=== PATIENT | female | born 1950 | race Caucasian/White ===

== ENCOUNTER → 2019-02-26 10:58 | Outpatient (CLI) | payer MEDICARE, SELFPAY ==
[2015-07-13 07:08] VITALS: BMI 52.7
--- NOTE | 2019-02-26 11:06 | RAD_ITS ---
STUDY: X-RAY CHEST REASON FOR EXAM: Female, 68 years old. Shortness of breath and dyspnea TECHNIQUE: PA and lateral views of the chest. COMPARISON: None. FINDINGS: There are areas of hyperinflation. Mild compression of right basilar parenchyma. There is no demonstrated pleural abnormality. Normal size heart. Normal mediastinum and dragan. Normal visualized pulmonary arteries. Normal visualized aortic arch and descending thoracic aorta. There are diffuse degenerative changes of the visualized thoracic spine. Normal visualized ribs, clavicles, and shoulders. There is no demonstrated abnormality of the visualized soft tissue structures of the upper abdomen. RAD/Chest PA and Lateral IMPRESSION: Component of hyperinflation is nonspecific. Early form of COPD possible. Nonspecific compression of right basilar parenchyma. No pulmonary edema, congestive heart failure or confluent pneumonia. Electronically Signed: Lily Waters MD at 6:40 EDT , Service support ,
== END ==
DX: R06.00 Dyspnea, unspecified (principal)
CPT/HCPCS: 71046

== ENCOUNTER → 2019-04-17 06:27 | Outpatient (CLI) | payer MEDICARE, SELFPAY ==
--- NOTE | 2019-04-17 09:42 | PFTCOMP_ITS ---
COMPLETE PULMONARY FUNCTION TEST INTERPRETATION Brief HPI: Patient is a 68 year old female, currently under the care of Karon Franco, who presents to [facility] for complete pulmonary function tests secondary to diagnosis of dyspnea. Respiratory therapist reports good effort and reproducible results. Interpretation: Forced expiration spirometry shows no large airways obstructive ventilatory defect with an FEV1 of 97% predicted. There is no significant bronchodilator response by strict ATS criteria. Spirograms are of good quality and plateau normally. The respiratory flow volume loop shows a normal pattern. Lung volumes by body plethysmography show a slightly reduced total lung capacity at 3.95 L, 82% predicted. All other lung volumes are within normal limits. Significant reduction in ERV and RV also noted, which is suggestive of restriction secondary to body habitus. Diffusion capacity by carbon monoxide is at the lower limit of normal at 73% predicted. The airway resistance is normal. No previous pulmonary function tests were available for review. Impression: Mild restrictive ventilatory defect with a symmetric reduction diffusing capacity. This may be secondary to body habitus, but early interstitial lung disease cannot be excluded.
== END ==
DX: R06.00 Dyspnea, unspecified (principal)
CPT/HCPCS: 94060; 94726; 94729

== ENCOUNTER → 2019-06-26 21:07 | Outpatient (CLI) | payer MEDICARE, SELFPAY | DX: G47.10 Hypersomnia, unspecified (principal); R93.89 Abnormal findings on diagnostic imaging of other specified body structures | CPT/HCPCS: 95810 ==

== ENCOUNTER → 2019-06-28 16:16 | Outpatient (CLI) | payer MEDICARE, SELFPAY ==
[2015-07-13 07:08] VITALS: BMI 52.7
--- NOTE | 2019-06-28 16:21 | CT_ITS ---
STUDY: LOW DOSE CT LUNG CANCER SCREENING REASON FOR EXAM: Female, 69 years old. RADIATION DOSAGE (If Supplied By Facility): CTDIvol = ( 3.40 ) mGy, DLP = ( 83.43 ) mGycm TECHNIQUE: No contrast was administered. Low dose technique was utilized (average mAS-38 and kVp 120). 1.25 mm axial source images with a slice interval of 1.25-mm were reconstructed in lung windows. 2.5 mm axial source images with a slice interval of 2.5-mm were reconstructed in lung windows. 5.0 mm axial source images with a slice interval of 5.0-mm were reconstructed in soft tissue windows. Nodule measured using lung windows on PACS and/or independent workstation with automated measurement of minimum and maximum diameter. Nodule measurement reported as average diameter rounded to the nearest whole number. Growth is defined as an increase ins size of greater than 1.5 mm. COMPARISON: None. Findings: Examination is severely degraded due to extremely suboptimal insufficient radiation dose technique resulting in severely elevated image noise. There is a bilobed 1.7 cm right lower lobe solid nodule. Airways are patent. Pleural surfaces are intact. Mediastinal contents cannot be evaluated. However, there is severe coronary artery disease. CT/Low Dose CT Lung Screening IMPRESSION: 1. Severely limited exam, recommend repeating. 2. 1.7 cm right lower lobe nodule, not sufficiently well evaluated, cannot characterize. Recommend performing diagnostic CT chest with contrast for further assessment. 3. Severe coronary artery disease, cardiology attention advised., IMPORTANT NOTES FOR USE: ACR Lung-RADS Version 1.0 Assessment Categories Release Date: February 17, 2014 Category: Coded 0-4 bases on nodule(s) with highest degree of suspicion. Negative screen is defined as categories 1 and 2; a positive screen is defined as categories 3 and 4. Category 3 and 4A nodules that are unchanged on interval CT should be coded as category 2, and individuals returned to screening in 12 months. Category 4X: Category 3 or 4 nodules with additional imaging findings that increase the suspicion of lung cancer, such as spiculation, GGN that doubles in size in 1 year, enlarged lymph notes, etc. Category Modifiers: S (significant finding unrelated to lung cancer) and C (prior history of treated lung cancer) may be added to the 0-4 Lung-RADS Electronically Signed: Susan Loyd, at 17:09 EDT Tel , Service support ,
== END ==
DX: R06.00 Dyspnea, unspecified (principal); Z87.891 Personal history of nicotine dependence
CPT/HCPCS: G0297

== ENCOUNTER → 2019-08-06 11:38 | Outpatient (CLI) | payer MEDICARE, SELFPAY | DX: G47.33 Obstructive sleep apnea (adult) (pediatric) (principal) | CPT/HCPCS: 95811 ==

== ENCOUNTER → 2019-08-21 08:25 | Outpatient (CLI) | payer MEDICARE, SELFPAY ==
[2019-08-16 10:55] VITALS: BMI 52.7
[2019-08-21 08:30] VITALS: PULSE 117; PULSE 124; PULSE 130; PULSE 138; PULSE 142; PULSE 144; O2SAT 94; O2SAT 96; O2SAT 97; O2SAT 98; O2SAT 99
--- NOTE | 2019-08-21 15:03 | PCM.PSN.6M ---
PSN 6 Minute Walk Test - 6 Minute Walk Test 6 Minute Walk Test: 6 Minute Walk Test PSN:6-Minute Walk Test Start: 08/21/19 08:49 Freq: Status: Active Protocol: [id number].[id number] Document 08/21/19 08:30 HG (Rec: 08/21/19 08:51 HG [id number]) 6 Minute Walk Test Date Performed 08/21/19 Time Performed 08:35 Height 5 ft 5 in Weight: 137.892 kg Weight in Pounds 304.[address]: Kvng Ramachandran Assistive device used: None Pre-test Oxygen Delivery Method Room Air Pulse Ox (%) 96 Pulse Rate (60-100 beats/min) 117 H Dyspnea Janelle Scale (0-10) 2 Exertion Janelle Scale (6-20) 11 1st minute Oxygen Delivery Method Room Air Pulse Ox (%) 98 Pulse Rate (60-100 beats/min) 130 H 2nd minute Oxygen Delivery Method Room Air Pulse Ox (%) 97 Pulse Rate (60-100 beats/min) 138 H 3rd minute Oxygen Delivery Method Room Air Pulse Ox (%) 94 Pulse Rate (60-100 beats/min) 142 H Number of Rests Taken 1 Reported Symptoms Increased Work of Breathing 4th minute Oxygen Delivery Method Room Air Pulse Ox (%) 99 Pulse Rate (60-100 beats/min) 142 H 5th minute Oxygen Delivery Method Room Air Pulse Ox (%) 98 Pulse Rate (60-100 beats/min) 144 H 6th minute Oxygen Delivery Method Room Air Pulse Ox (%) 97 Pulse Rate (60-100 beats/min) 144 H Post-test Oxygen Delivery Method Room Air Pulse Ox (%) 98 Pulse Rate (60-100 beats/min) 124 H Dyspnea Janelle Scale (0-10) 4 Exertion Janelle Scale (6-20) 14 Full Laps Walked 12 Partial Lap, Number of Tiles Walked 0 Total Distance Walked (ft) 708 - Interpretation Interpretation: The patient was able to ambulate 708 feet over the course of 6 minutes on room air with no assistive devices and one break. The patient did have persistent tachycardia over the course of testing with a peak heart rate of 144 bpm. No significant desaturation was noted. These findings are consistent with a cardiovascular limitation exercise tolerance. - Recommendations Recommendations: The patient requires no supplemental oxygen with exertion. Consider cardiovascular work-up.
== END ==
PROVIDERS: Referring Provider Internal Medicine Critical Care Medicine; Visit Provider Internal Medicine Critical Care Medicine
DX: J98.4 Other disorders of lung (principal); E66.01 Morbid (severe) obesity due to excess calories; Z68.42 Body mass index [BMI] 45.0-49.9, adult
CPT/HCPCS: 94618

== ENCOUNTER → 2019-08-29 13:06 | Outpatient (CLI) | payer MEDICARE, SELFPAY ==
[2019-08-16 10:55] VITALS: BMI 52.7
--- NOTE | 2019-08-29 13:07 | CT_ITS ---
STUDY: CT CHEST WITH CONTRAST REASON FOR EXAM: Female, 69 years old. Lung nodule. RADIATION DOSAGE (If Supplied By Facility): CTDIvol = ( 15.06 ) mGy, DLP = ( 588.96 ) mGycm TECHNIQUE: Transaxial imaging was performed following intravenous administration of IV Isovue 300 100. Multiplanar coronal and sagittal images were reformatted. Individualized dose optimization techniques were used for this CT. COMPARISON: 06/28/2019. FINDINGS: Redemonstrated is right lower lobe pulmonary nodule measuring 1.2 x 1.5 x 2.3 cm, stable in the interval and measured in axial and coronal plane at the same level. This is stable in the interval. There is no demonstrated pleural abnormality. Normal heart and pericardium. Normal mediastinum. Normal hilar regions. Normal enhanced pulmonary arteries. Normal aorta arch and descending thoracic aorta. There are multi-level degenerative changes of the thoracic spine. Upper abdomen: Upper abdominal structures are unremarkable. CT/Chest WITH Contrast IMPRESSION: Right lower lobe pulmonary nodule, stable since 06/28/2019 with no new nodules identified. Stability recommended for total period of 2 years since initial observation. No acute cardiopulmonary process seen. Electronically Signed: Mela Singleton MD at 5:11 EST , Service support ,
[2019-08-29 13:40] LABS: CREATININE FINGERSTICK 1.5 mg/dL (0.55-1.02)
== END ==
PROVIDERS: Referring Provider Internal Medicine Critical Care Medicine; Visit Provider Internal Medicine Critical Care Medicine
DX: R91.1 Solitary pulmonary nodule (principal); J98.4 Other disorders of lung
CPT/HCPCS: 71260; Q9967

== ENCOUNTER → 2020-04-09 08:07 | Outpatient (CLI) | payer MEDICARE, MEDICAID, SELFPAY ==
[2020-03-26 09:39] VITALS: BMI 52.0
--- NOTE | 2020-04-09 08:08 | CT_ITS ---
STUDY: CT CHEST WITHOUT CONTRAST REASON FOR EXAM: Female, 69 years old. RLL LUNG NODULE 6 MON F/U, NON SMOKER, DB, HTN, COPD RADIATION DOSAGE (If Supplied By Facility): CTDIvol = ( 20.73 ) mGy, DLP = ( 744.98 ) mGycm TECHNIQUE: Transaxial imaging was performed without the administration of intravenous contrast material. Multiplanar coronal and sagittal images were reformatted. Individualized dose optimization techniques were used for this CT. COMPARISON: Comparison is made with prior study dated August 29, 2019. FINDINGS: There is a 1.6 cm x 1.2 cm x 1.6 cm spiculated nodule in the right lower lobe. This is essentially unchanged from prior examinations. There is no demonstrated pleural abnormality. There are calcifications of the coronary arteries. Normal mediastinum. Stable calcified lymph node in the aortopulmonary window. Normal unenhanced pulmonary arteries. There is atherosclerotic calcification of the aortic arch with tortuosity and elongation of the aortic arch and descending thoracic aorta. There are multi-level degenerative changes of the thoracic spine. Small hiatal hernia. Prior cholecystectomy. CT/Chest without Contrast IMPRESSION: Stable nodule in the right lower lobe. Stable calcified nodes in the aortopulmonary window. Electronically Signed: Cristino Medina, at 8:46 EDT , Service support ,
== END ==
PROVIDERS: Referring Provider Internal Medicine Critical Care Medicine; Visit Provider Internal Medicine Critical Care Medicine
DX: R91.1 Solitary pulmonary nodule (principal)
CPT/HCPCS: 71250

== ENCOUNTER → 2020-05-06 12:36 | Outpatient (CLI) | payer MEDICARE, MEDICAID, SELFPAY ==
[2020-04-20 07:45] VITALS: BMI 52.2
--- NOTE | 2020-05-06 12:38 | ECHOCS_ITS ---
Version 2 Reason For Study: Dyspnea/SOB Procedure This was a 2D Doppler, Color Flow transthoracic echocardiogram. The study was technically difficult. Contrast injection was performed. Exam performed in department. Left Ventricle Normal LV size. The estimated ejection fraction is 65 %. No evidence for diastolic dysfunction. No regional wall motion abnormalities noted. Right Ventricle Normal RV size. Normal systolic function. Atria The left atrium is mildly enlarged. Normal right atrium. No doppler evidence for ASD. Mitral Valve There is moderate mitral annular calcification. There is no mitral valve stenosis. No mitral valve insufficiency. Tricuspid Valve There is no tricuspid stenosis. Unable to estimate RV systolic pressure due to insufficient tricuspid regurgitant envelope. Aortic Valve Aortic sclerosis, no stenosis. Trisinus/trileaflet aortic valve. There is no aortic stenosis. No aortic valve insufficiency. Pulmonic Valve There is no pulmonic valvular stenosis. No pulmonic valve insufficiency. Great Vessels Normal aortic root. Pericardium/Pleural No pericardial effusion. Medication 22 gauge I.V. with prn adaptor inserted into right arm. Diluted definity 3ml given slow IV push to enhance endocardial definition. MMode/2D Measurements & Calculations LVIDd: 4.2 cm IVSd: 1.7 cm LAV(MOD-bp): 68.4 ml LVIDs: 3.1 cm LVPWd: 1.2 cm FS: 26.8 % LAV(MOD-bp) Indexed: 28.6 ml/m2 LAV(MOD-sp2): 53.3 ml LAV(MOD-sp4): 78.1 ml LA A4 area: 24.7 cm2 RA A4 area: 15.4 cm2 Time Measurements MV dec time: 0.23 sec Doppler Measurements & Calculations MV E max compa: 89.0 cm/sec Lat Peak E' Compa: 8.3 cm/sec Med Peak E' Compa: 6.1 cm/sec MV A max compa: 130.4 cm/sec E/E' lat: 10.8 E/E' med: 14.7 MV E/A: 0.68 MV V2 max: 162.8 cm/sec MV P1/2t max compa: 109.8 cm/sec Ao V2 max: 204.2 cm/sec MV max P.6 mmHg MV P1/2t: 80.3 msec Ao max P.7 mmHg MV V2 mean: 86.6 cm/sec Ao V2 mean: 114.9 cm/sec MV mean P.6 mmHg MV dec slope: 400.2 cm/sec2 Ao mean P.5 mmHg MV V2 VTI: 29.5 cm MVA(P1/2t): 2.7 cm2 Ao V2 VTI: 33.1 cm LV V1 max: 133.1 cm/sec PA V2 max: 113.6 cm/sec LV V1 max P.1 mmHg LV V1 mean P.0 mmHg LV V1 mean: 77.0 cm/sec LV V1 VTI: 30.5 cm Interpretation Summary The estimated ejection fraction is 65 %. No evidence for diastolic dysfunction. The left atrium is mildly enlarged. Aortic sclerosis, no stenosis. Ordering Physician: Annika Saleh Referring Physician: Annika Saleh Performed By: Clyde Foster RCS
== END ==
PROVIDERS: Referring Provider Nurse Practitioner Acute Care; Visit Provider Nurse Practitioner Acute Care
DX: R06.02 Shortness of breath (principal); G47.33 Obstructive sleep apnea (adult) (pediatric)
CPT/HCPCS: 93306; Q9957; A4216; C8929

== ENCOUNTER → 2020-08-25 08:43 | Outpatient (CLI) | payer MEDICARE, MEDICAID, SELFPAY ==
[2020-05-20 07:53] VITALS: BMI 53.1
[2020-08-25 09:15] LABS: Absolute Lymphocyte Count 2.05 X10^3/uL (0.83-4.51); Absolute Neutrophil Count 5.7 X10^3/uL (2.0-7.7); Basophil# 0.06 X10^3/uL; Basophil% 0.7 % (0-1); Eosinophil# 0.11 X10^3/uL; Eosinophils% 1.3 % (0-5); Hematocrit 42.5 % (37-47); Hemoglobin 14.1 g/dL (12.0-15.0); Lymphocyte # 2.05 X10^3/ul (4.0); Lymphocyte % 23.9 % (19-41); Mean Corp Hgb Conc 33.2 g/dL (32-36); Mean Corpuscular Hgb 31.2 pg (27.0-32.0); Mean Platelet Vol. 10.5 fl (6.2-12.0); Monocyte# 0.58 X10^3/uL; Monocyte% 6.8 % (0-10); NRBC Flagged by Analyzer 0 % (0-5); Neutrophil # 5.73 X10^3/uL (2.7-7.7); Neutrophil % 66.8 % (47-70); Platelet Count 216 K/mm3 (150-450); RBC Distribution Width CV 12.9 % (11.6-14.6); RBC Distribution Width SD 44.4 fl (35.1-43.9); Red Blood Count 4.52 M/mm3 (4.2-5.4); White Blood Count 8.6 K/mm3 (4.4-11.0)
[2020-08-25 09:30] LABS: Hemoglobin A1c 6.9 % (3.8-5.6)
[2020-08-25 09:36] LABS: Vitamin D,25 Hydroxy 60.2 ng/mL
[2020-08-25 09:44] LABS: ALB/GLOB Ratio 1.2 RATIO (0.9-2.4); AST(SGOT) 20 U/L (15-37); Alanine Aminotransfer ALT/SGPT 30 U/L (13-56); Albumin, Serum 4.4 g/dL (3.2-5.0); Alkaline Phosphatase 82 U/L (45-117); Anion Gap 10 (5-15); BUN 23 mg/dL (7-18); BUN/Creat Ratio 16.3 RATIO (10-20); Calcium,Total 9.1 mg/dL (8.5-10.1); Chloride 108 mmol/L (98-107); Cholesterol 173 mg/dL (200); Creatinine, Serum 1.41 mg/dL (0.55-1.02); EST Glomerular Filtration Rate 39 mL/min (>60); Est Glom Filt Rate - Afr Amer 48 mL/min (>60); Globulin 3.6 g/dL (2.2-4.2); Glucose 140 mg/dL (74-106); High Density Lipoprotein 59 mg/dL; Potassium 4.2 mmol/L (3.5-5.1); Sodium Level 139 mmol/L (136-145); T4 Free Direct 1.28 ng/dL (0.76-1.46); Thyroid Stim Hormone (TSH) 2.77 uIU/mL (0.358-3.74); Triglycerides 216 mg/dL; Very Low Density Lipoprotein 43 mg/dL (5-40)
== END ==
DX: I12.9 Hypertensive chronic kidney disease with stage 1 through stage 4 chronic kidney disease, or unspecified chronic kidney disease (principal); E11.22 Type 2 diabetes mellitus with diabetic chronic kidney disease; N18.9 Chronic kidney disease, unspecified; E78.2 Mixed hyperlipidemia; E03.9 Hypothyroidism, unspecified; J44.9 Chronic obstructive pulmonary disease, unspecified; E55.9 Vitamin D deficiency, unspecified
CPT/HCPCS: 36415; 80053; 80061; 82306; 83036; 84439; 84443; 85025

== ENCOUNTER → 2020-12-18 12:36 | Outpatient (CLI) | payer MEDICARE, SELFPAY ==
[2020-12-18 14:31] LABS: Hemoglobin A1c 7.9 % (3.8-5.6)
== END ==
PROVIDERS: Referring Provider Nurse Practitioner Adult Health
DX: E11.9 Type 2 diabetes mellitus without complications (principal)
CPT/HCPCS: 36415; 83036

== ENCOUNTER → 2021-03-12 11:21 | Outpatient (CLI) | payer MEDICARE, SELFPAY ==
[2021-03-12 12:14] LABS: Anion Gap 8 (5-15); BUN 15 mg/dL (7-18); BUN/Creat Ratio 10.9 RATIO (10-20); Chloride 107 mmol/L (98-107); Creatinine, Serum 1.38 mg/dL (0.55-1.02); EST Glomerular Filtration Rate 40 mL/min (>60); Est Glom Filt Rate - Afr Amer 49 mL/min (>60); Glucose 128 mg/dL (74-106); Potassium 4.1 mmol/L (3.5-5.1); Sodium Level 139 mmol/L (136-145)
== END ==
PROVIDERS: PCP Nurse Practitioner Adult Health; Referring Provider Nurse Practitioner Adult Health; Visit Provider Nurse Practitioner Adult Health
DX: E11.9 Type 2 diabetes mellitus without complications (principal)
CPT/HCPCS: 36415; 80048

== ENCOUNTER → 2021-03-19 09:46 | Outpatient (CLI) | payer MEDICARE, MEDICAID, SELFPAY ==
[2021-03-19 10:41] LABS: ALB/GLOB Ratio 1.1 RATIO (0.9-2.4); AST(SGOT) 22 U/L (15-37); Alanine Aminotransfer ALT/SGPT 30 U/L (13-56); Albumin, Serum 4.3 g/dL (3.2-5.0); Alkaline Phosphatase 92 U/L (45-117); Anion Gap 8 (5-15); BUN 17 mg/dL (7-18); Calcium,Total 9.5 mg/dL (8.5-10.1); Chloride 107 mmol/L (98-107); Creatinine, Serum 1.42 mg/dL (0.55-1.02); EST Glomerular Filtration Rate 39 mL/min (>60); Est Glom Filt Rate - Afr Amer 47 mL/min (>60); Globulin 3.9 g/dL (2.2-4.2); Glucose 120 mg/dL (74-106); Potassium 4.2 mmol/L (3.5-5.1); Protein, Total 8.2 g/dL (6.4-8.2); Sodium Level 139 mmol/L (136-145)
== END ==
PROVIDERS: PCP Nurse Practitioner Adult Health; Referring Provider Nurse Practitioner Adult Health; Visit Provider Nurse Practitioner Adult Health
DX: E11.9 Type 2 diabetes mellitus without complications (principal)
CPT/HCPCS: 36415; 80053

== ENCOUNTER → 2021-05-03 12:28 | Outpatient (CLI) | payer MEDICARE, MEDICAID, SELFPAY ==
[2021-04-20 08:35] VITALS: BMI 54.6
--- NOTE | 2021-05-03 12:29 | CT_ITS ---
STUDY: LOW DOSE CT LUNG CANCER SCREENING REASON FOR EXAM: Female, 70 years old. and amp;gt;30 pack year history. Former smoker. COPD RADIATION DOSAGE (If Supplied By Facility): CTDIvol = ( 4.02 ) mGy, DLP = ( 139.94 ) mGycm TECHNIQUE: No contrast was administered. Low dose technique was utilized (average mAS-38 and kVp 120). 1.25 mm axial source images with a slice interval of 1.25-mm were reconstructed in lung windows. 2.5 mm axial source images with a slice interval of 2.5-mm were reconstructed in lung windows. 5.0 mm axial source images with a slice interval of 5.0-mm were reconstructed in soft tissue windows. Nodule measured using lung windows on PACS and/or independent workstation with automated measurement of minimum and maximum diameter. Nodule measurement reported as average diameter rounded to the nearest whole number. Growth is defined as an increase ins size of greater than 1.5 mm. COMPARISON: Comparison is made with prior examination dated 04/09/2020. NODULES: Since prior study, the spiculated nodule in the right lower lobe has increased in size. It presently measures 2.4 size by 1.5 cm. A thickened linear density is seen along its lateral aspect. This extends to the pleural surface. This has progressed as compared to prior study. Emphysema: Mild degree of emphysematous changes. Endobronchial lesion: None Aorta: Unremarkable Coronary arteries: Coronary artery calcification. Heart: Unremarkable Pulmonary artery: Unremarkable Mediastinal nodes: Calcified lymph nodes in the region of the aortopulmonary window. Other chest and abdominal findings: CT/Low Dose CT Lung Screening IMPRESSION: Lung-RADS category 4B - Chest CT with or without contrast, PET/CT and/or tissue sampling can be obtained depending on the probability of malignancy and comorbidities. IMPORTANT NOTES FOR USE: ACR Lung-RADS Version 1.1 Assessment Categories Release Date: 2018 Category: Coded 0-4 bases on nodule(s) with highest degree of suspicion. Negative screen is defined as categories 1 and 2; a positive screen is defined as categories 3 and 4. Category 3 and 4A nodules that are unchanged on interval CT should be coded as category 2, and individuals returned to screening in 12 months. Category 4X: Category 3 or 4 nodules with additional imaging findings that increase the suspicion of lung cancer, such as spiculation, GGN that doubles in size in 1 year, enlarged lymph notes, etc. Category Modifiers: S (significant finding unrelated to lung cancer) Electronically Signed: Cristino Medina MD at 15:10 EDT , Service support ,
== END ==
PROVIDERS: Referring Provider Nurse Practitioner Acute Care; Visit Provider Nurse Practitioner Acute Care
DX: F17.210 Nicotine dependence, cigarettes, uncomplicated (principal)
CPT/HCPCS: 71271

== ENCOUNTER → 2021-05-10 11:24 | Outpatient (CLI) | payer MEDICARE, MEDICAID, SELFPAY ==
[2021-04-20 08:35] VITALS: BMI 54.6
[2021-05-10 12:42] LABS: Absolute Lymphocyte Count 1.99 X10^3/uL (0.83-4.51); Basophil# 0.05 X10^3/uL; Basophil% 0.6 % (0-1); Eosinophil# 0.12 X10^3/uL; Eosinophils% 1.3 % (0-5); Hematocrit 41.8 % (37-47); Hemoglobin 14.2 g/dL (12.0-15.0); Lymphocyte # 1.99 X10^3/ul (0.83-4.51); Lymphocyte % 22.4 % (19-41); Mean Corpuscular Hgb 30.9 pg (27.0-32.0); Mean Corpuscular Volume 91.1 fL (81-99); Mean Platelet Vol. 10.5 fl (6.2-12.0); Monocyte# 0.72 X10^3/uL; Monocyte% 8.1 % (0-10); NRBC Flagged by Analyzer 0 % (0-5); Neutrophil # 5.99 X10^3/uL (2.7-7.7); Neutrophil % 67.4 % (47-70); Platelet Count 236 K/mm3 (150-450); RBC Distribution Width CV 13.4 % (11.6-14.6); RBC Distribution Width SD 44.5 fl (35.1-43.9); Red Blood Count 4.59 M/mm3 (4.2-5.4); White Blood Count 8.9 K/mm3 (4.4-11.0)
[2021-05-10 12:53] LABS: Prothrombin Time (Protime)PT. 12.4 SECONDS (11.7-14.9)
[2021-05-10 13:00] LABS: Microalbumin,Random Urine 82.6 mg/L (NO RANGE EST.); Microalbumin:Creatinine Ratio 55.4 mg/g CRE (<30 mg/g CRE)
[2021-05-10 13:27] LABS: ALB/GLOB Ratio 1.1 RATIO (0.9-2.4); AST(SGOT) 23 U/L (15-37); Alanine Aminotransfer ALT/SGPT 37 U/L (13-56); Albumin, Serum 4.1 g/dL (3.2-5.0); Alkaline Phosphatase 89 U/L (45-117); Anion Gap 11 (5-15); BUN 26 mg/dL (7-18); BUN/Creat Ratio 17.1 RATIO (10-20); Chloride 105 mmol/L (98-107); Cholesterol 182 mg/dL (200); Creatinine, Serum 1.52 mg/dL (0.55-1.02); EST Glomerular Filtration Rate 36 mL/min (>60); Est Glom Filt Rate - Afr Amer 44 mL/min (>60); Globulin 3.7 g/dL (2.2-4.2); Glucose 138 mg/dL (74-106); High Density Lipoprotein 47 mg/dL; Potassium 3.8 mmol/L (3.5-5.1); Protein, Total 7.8 g/dL (6.4-8.2); Sodium Level 138 mmol/L (136-145); Thyroid Stim Hormone (TSH) 2.57 uIU/mL (0.358-3.74); Triglycerides 207 mg/dL; Very Low Density Lipoprotein 41 mg/dL (5-40)
[2021-05-12 15:18] LABS: Vitamin D 1,25-Dihydroxy 58.1 pg/mL (19.9-79.3)
== END ==
PROVIDERS: Visit Provider Family Medicine
DX: E11.9 Type 2 diabetes mellitus without complications (principal)
CPT/HCPCS: 36415; 80053; 80061; 82043; 82570; 82652; 84443; 85025; 85610

== ENCOUNTER → 2021-06-19 10:46 | Outpatient (CLI) | payer MEDICARE, MEDICAID, SELFPAY ==
--- NOTE | 2021-06-19 10:49 | US_ITS ---
EXAM: US RETROPERITONEAL COMPLETE, RENAL CLINICAL INDICATION: DISORDER OF KIDNEY - patient states one kidney TECHNIQUE: Grayscale and color Doppler sonographic evaluation of the retroperitoneum was performed. This report was created using [employer] report generation technology. COMPARISON: CT 04/04/2014. FINDINGS: RIGHT KIDNEY: Right renal cortical scarring. No hydronephrosis. No shadowing calculus. No perinephric collection is demonstrated. LEFT KIDNEY: Echogenic nonshadowing structure in the inferior left kidney likely represents renal pelvis fat. No perinephric collection is demonstrated. BLADDER: Urinary bladder is not well-distended. US/Kidney and Bladder IMPRESSION: No acute findings in the retroperitoneum. Electronically Signed: Johnathon Sepulveda MD ([place]) at 15:11 EDT , Service support ,
== END ==
PROVIDERS: Referring Provider Nurse Practitioner Adult Health; Visit Provider Nurse Practitioner Adult Health
DX: N28.9 Disorder of kidney and ureter, unspecified (principal)
CPT/HCPCS: 76770

== ENCOUNTER → 2021-06-29 15:03 | Outpatient (CLI) | payer MEDICARE, MEDICAID, SELFPAY ==
--- NOTE | 2021-06-29 15:30 | PET_ITS ---
EXAMINATION: FDG PET-CT INDICATIONS: A 71-year-old female with history of pulmonary nodularity. COMPARISON EXAMINATION: CT of the chest report dated 05/03/21 INDEX LESION SIZE SUV INTERPRETATION Right infrahilar region 29.1-mm (frame 185) 2.9 Fulfills quantitative criteria for viable neoplasm, histopathologic analysis recommended TECHNIQUE: Following the intravenous administration of 11.38 mCi of F-18 deoxyglucose via the right forearm, multiplanar image acquisitions of the neck, chest, abdomen and pelvis to level of mid thigh, obtained at one hour post radiopharmaceutical administration contemporaneously interpreted with the current CT of the neck, chest, abdomen and pelvis, to level of mid thigh, dated 06/29/[address] of the chest report dated 05/03/21 reveals: BLOOD GLUCOSE LEVEL:?? 109 mg/dl?HEIGHT:?65 inches?WEIGHT: 313 lbs. FINDINGS: 1. Increased FDG concentration is observed in the right lower medial lung-infrahilar region generating a calculated maximal standard uptake value of 2.9. The maximal axial diameter of the corresponding soft tissue density on review of CT of the chest dated 06/29/21 is 29.1-mm (AP). 2. Normal physiologic distribution of the radiopharmaceutical is apparent in the hepatic (3.0) and splenic parenchyma, both renal units, bladder and visualized intestinal tract. The visualized portion of the cerebral cortical-subcortical structures demonstrate symmetric and preserved glucose metabolism. Diffuse radiopharmaceutical concentration is noted in all four quadrants of the abdomen and pelvis. Prominent radiopharmaceutical concentration is observed in the anterior aspect of the nares most consistent with activated leukocytes associated with an inflammatory process-rhinitis. Pertinent CT findings are as follows: CHEST: Bilateral axillary and scattered mediastinal soft tissue densities, as well as calcified left thoracic perihilar soft tissue demonstrate no evidence of quantitatively significant increased FDG uptake. There is atherosclerotic calcification defined in the thoracic aorta without evidence of dilatation-aneurysm formation. Coronary arterial calcification is observed. ABDOMEN AND PELVIS: There is atherosclerotic calcification defined in the abdominal aorta without evidence of dilatation-aneurysm formation. Pelvic arterial calcification is visualized. Calcifications are manifest within the right kidney. The gallbladder appears surgically absent. Bilateral inguinal soft tissue densities with fatty hilus are ametabolic. SKELETAL: Degenerative changes are noted in the cervical, thoracic and lumbar spine without evidence of increased radiopharmaceutical concentration. PET/PET/CT Tumor Base -Thigh Init IMPRESSION: 1. Increased FDG distribution defined in the right lower medial lung-infrahilar region fulfills quantitative criteria for viable neoplasm with single point technique. Histopathologic analysis is recommended. (Emmanuel et al, Annals of Internal Medicine, 138:724, 2003). 2. No other quantitatively significant hypermetabolic abnormalities are encountered. Electronic Signature Billy Stone D.O. Accurate Quantification of SUVs for this report are calculated using the exclusive [employer], ([place]. Patent No. [id number]). Standardization and correction of the FDG SUV metric exclusively available with [employer] intellectual property, allow for vendor non-specific objective quantitative sequential FDG PET-CT comparison and otherwise unobtainable optimization of the sensitivity and specificity of the examination. Electronically Signed: Billy Stone DO at 19:40 EDT Tel , Service support ,
== END ==
PROVIDERS: Referring Provider Nurse Practitioner Adult Health; Visit Provider Nurse Practitioner Adult Health
DX: R91.1 Solitary pulmonary nodule (principal)
CPT/HCPCS: 78815; A9552

== ENCOUNTER → 2021-08-10 10:01 | Outpatient (CLI) | payer MEDICARE, MEDICAID, SELFPAY ==
--- NOTE | 2021-08-10 10:01 | MRI_ITS ---
STUDY: MRI BRAIN WITH AND WITHOUT CONTRAST REASON FOR EXAM: Female, 71 years old. Eval for brain metastases TECHNIQUE: Standardized multiplanar fat and water weighted pulse sequences were obtained. IV 28ml Dotarem was administered for the contrast portion of the examination. COMPARISON: None. FINDINGS: Normal size of the ventricles and extra-axial spaces for the patient''s age. Normal white matter tracts of the supratentorial brain. There is confluent periventricular hyperintensity cloaking the lateral ventricles, consistent with periventricular leukoaraiosis. Subcortical and periventricular white matter FLAIR hyperintensities compatible with chronic microvascular ischemic disease. There is no evidence for recent intracranial ischemia or other cause of cytotoxic edema on diffusion weighted imaging (DWI). There is a small enhancing focus along the inner table of the posterior left parietal bone. No abnormal enhancement in the brain. Normal bilateral basal ganglia. Normal thalami. There is no extra-axial fluid accumulation. Normal flow voids within the major intracranial circulation suggesting patency by spin echo criteria. Normal venous enhancement. There is no enhancing intra-axial or extra-axial abnormality. Normal sella turcica, pituitary gland, infundibular stalk, optic chiasm and hypothalamus. Normal tectal plate and pineal gland. Normal midbrain, joni and medulla. Normal cerebellum. Normal basal cisterns. Normal bilateral temporal bones. Normal bilateral internal auditory canals. No demonstrated orbital abnormality, within the constraints of a routine brain study. Normal visualized paranasal sinuses. Normal calvarium and skull base. Normal visualized soft tissue structures. Normal visualized upper cervical spine. MRI/Brain W/WO Contrast IMPRESSION: Suspect tiny metastatic focus along the inner table of the left parietal bone. No finding of brain metastasis. Electronically Signed: Bobby Rock MD at 4:35 EDT Tel , Service support ,
== END ==
PROVIDERS: Referring Provider Student in an Organized Health Care Education/Training Program; Visit Provider Student in an Organized Health Care Education/Training Program
DX: Z12.89 Encounter for screening for malignant neoplasm of other sites (principal); C34.91 Malignant neoplasm of unspecified part of right bronchus or lung
CPT/HCPCS: 70553; 77014; 77290; 77332; 82565; A9575; Q9967; A4216

== ENCOUNTER → 2021-08-16 08:59 | Outpatient (CLI) | payer MEDICARE, MEDICAID, SELFPAY ==
--- NOTE | 2021-08-16 15:31 | PFTCOMP_ITS ---
COMPLETE PULMONARY FUNCTION TEST INTERPRETATION Brief HPI: Patient is a 71 year old female, currently under the care of Dr. Small, who presents to [facility] for complete pulmonary function tests secondary to diagnosis of lung cancer. Respiratory therapist reports good effort and reproducible results. Interpretation: Forced expiration spirometry shows no large airways obstructive ventilatory defect with an FEV1 of 85% predicted. There is no significant bronchodilator response by strict ATS criteria. Spirograms are of good quality and plateau normally. The respiratory flow volume loop shows a normal pattern. Lung volumes by body plethysmography show a decreased total lung capacity at 3.61 L, 71% predicted. All other lung volumes are reduced symmetrically. Diffusion capacity by carbon monoxide is decreased at 67% predicted. The airway resistance is normal. Compared to previous pulmonary function tests from 04/17/2019, there has been no significant change. Impression: Mild restrictive ventilatory defect with a symmetric reduction in diffusion capacity
== END ==
PROVIDERS: Referring Provider Student in an Organized Health Care Education/Training Program; Visit Provider Student in an Organized Health Care Education/Training Program
DX: C34.91 Malignant neoplasm of unspecified part of right bronchus or lung (principal)
CPT/HCPCS: 94060; 94726; 94729

== ENCOUNTER 2021-08-17 07:26 | Day surgery (SDC) | payer MEDICARE, MEDICAID, SELFPAY ==
[2021-08-17] VITALS (8 sets, daily range): BP systolic 122–151; BP diastolic 74–84; PULSE 101–116; RESP 16; TEMP 36.2–36.8; O2SAT 97–98; BMI 51.4
[2021-08-17] MEDS: Lactated Ringers 1,000 ML 100 ML IV (07:45)
--- NOTE | 2021-08-17 08:21 | PCM.HP.BLA ---
History and Physical Date of Admission: 08/17/21 Intake Vital Signs 08/13/21 08:40 Height 5 ft 5 in Weight: 308 lb BMI 51.2 BP 172/82 H Blood Pressure Location Rt radial Position Sitting Respiration 18 Pulse Oximetry (%) 94 Oxygen Delivery Method room air Intake Visit Reasons: Consult port placement Chief Complaint: Referred for NSCLC management. Allergies No Known Allergies Allergy (Verified 08/13/21 08:24) Medications gabapentin 300 mg PO QHS 03/04/14 [History Confirmed 08/13/21] allopurinol 300 mg PO QHS 07/10/15 [History Confirmed 08/13/21] hydrochlorothiazide 25 mg PO DAILY 07/10/15 [History Confirmed 08/13/21] omeprazole 20 mg PO DAILY 07/10/15 [History Confirmed 08/13/21] albuterol sulfate 90 mcg/actuation aerosol inhaler 2 puff INHALATION Q6H 08/16/19 [History Confirmed 08/13/21] cholecalciferol (vitamin D3) 1,250 mcg (50,000 unit) capsule PO #12 cap 08/16/19 [History Confirmed 08/13/21] losartan 100 mg tablet 100 mg PO DAILY 08/16/19 [History Confirmed 08/13/21] pravastatin 40 mg tablet PO #90 tab 08/16/19 [History Confirmed 08/13/21] levothyroxine 25 mcg capsule 25 mcg PO DAILY 10/22/19 [History Confirmed 08/13/21] dulaglutide 1.5 mg/0.5 mL subcutaneous pen injector 1.5 mg SUBCUT QWEEK 04/20/21 [History Confirmed 08/13/21] amlodipine 10 mg tablet 10 mg PO DAILY 08/05/21 [History Confirmed 08/13/21] glipizide 10 mg tablet 10 mg PO DAILY 08/05/21 [History Confirmed 08/13/21] linagliptin 5 mg tablet 5 mg PO DAILY 08/09/21 [History Confirmed 08/13/21] [facility] Medical History (Updated 08/13/21 @ 08:[address] Sedrick Montiel MD) Abdominal pain Cholelithiasis Diabetes mellitus, type II DJD (degenerative joint disease) Fatty food intolerance History of nephrolithiasis Hyperlipidemia Hypertension Lactic acidosis Morbid obesity with BMI of 45.0-49.9, adult Rheumatoid arthritis Sleep apnea Surgical History H/O tubal ligation History of cholecystectomy Family History Father Lung cancer Sister Breast cancer Other Heart disease Kidney disease Social History adopted: No household members: none number of children: 3 current occupational status: retired Smoking Status: Former smoker Tobacco: How many years used: 2 alcohol intake: current alcohol intake frequency: 0-2 drinks per day substance use type: does not use HPI HPI HPI: STAN MCKINNEY, is a 71 F who presents to the office today for chest port consultation. Patient has lung cancer and requires chemotherapy treatment ROS General General: No weight change, appetite, fatigue, colon cancer, breast cancer or weakness HEENT HEENT: No difficulty swallowing, eye injury, eye surgery, swollen glands or hoarseness Endo Endocrine: Yes diabetes mellitus; No thyroid disease, thyroid cancer, Hair loss, heat intolerance or cold intolerance Skin Skin: No rash or changing moles Breast Breast: No left breast lump, right breast lump, nipple discharge, breast pain, abnormal mammogram, abnormal US or breast enlargement Musc Musculoskeletal: Yes rheumatoid arthritis and gout; No back problems, arthritis or joint pain Cardio Cardiovascular: Yes high blood pressure; No murmur, pacemaker, heart disease, atrial fibrillation, heart attack, heart stent, palpitations, shortness of breat with exertion or chest pain Psych Psychiatric: Yes anxiety; No depression or hearing voices Resp Respiratory: Yes shortness of breath, Yes sleep apnea, Yes cough, No COPD, No asthma, No emphysema and No wheezing Gastro Gastrointestinal: No abdominal pain, No nausea or vomiting, No diarrhea, No constipation, No blood in stool, No acid reflux, No hemorrhoids, No ulcers, No gallbladder problem and No black,tarry stools Raoul Hematologic: No blood thinners, No blood disorders, No bleeding, No anemia and No blood clots Neuro Neurologic: No system reviewed and no additional complaints, except as documented, No as per HPI, No abnormal gait, No abnormal hearing, No abnormal movements, No abnormal speech, No behavioral changes, No burning sensations, No confusion, No convulsions, No disequilibrium, No dizziness, No localized weakness, No frequent falls, No headache(s), No lack of coordination, No loss of vision, No memory loss, No numbness, No other visual disturbances, No radicular pain, No restless legs, No sensory deficit, No syncope, No tingling, No tremor(s), No weakness and No other Exam Const General: cooperative Orientation: alert and oriented x3 HENMT Head: normal to inspection Neck Neck: normal visual inspection and full ROM Chest Chest palpation & inspection: normal inspection of the chest Resp Effort & Inspection: normal respiratory effort Auscultation: clear to auscultation bilaterally Cardio Rate: regular rate Rhythm: regular rhythm GI Inspection: non-distended Palpation: soft and nontender Skin General: no rashes or lesions noted Neuro General: patient alert and patient oriented x3 Extrem General: full ROM Psych Appearance: grossly normal Mental Status: mental status grossly normal Assessment and Plan Assessment and Plan (1) Non-small cell cancer of right lung: Status: Acute Comment: NSCLC adenocarcinoma stage IIIA (T1c N2 M0) adenocarcinoma of the right lower lobe with mediastinal adenopathy. Discussed disease status, treatment with chemotherapy and Radiation. Pt want to proceed. Discussed therapy with Taxol/Carboplatin weekly. (2) Encounter for adjustment and management of vascular access device: Status: Acute Plan - Dr. Sedrick Montiel MD: Patient requires chest port for access for chemotherapy. I discussed port placement with the patient in detail. I discussed the risks including not limited to bleeding, infection, pneumothorax or line infection or DVT. Patient understands the risks and is when to proceed with port placement. Sedrick Montiel MD Pager: [facility] [address] [place] [address], [address] [place] [address] Office: I have re-examined the patient. There are no clinical changes since date of exam.
[2021-08-17 08:35] LABS: Bedside Glucose 155 mg/dL (70-110)
[2021-08-17] MEDS: Cefazolin 2 GM in 0.9% Normal Saline 100 ML IV (08:44)
[2021-08-17] MEDS: Lidocaine 1% /Epi 1:100 (20ml) 20 ML Vial (09:12)
--- NOTE | 2021-08-17 09:29 | PCM.OPRPT ---
Problems Associated Problem List Diagnoses (1) Non-small cell cancer of right lung: (2) Encounter for adjustment and management of vascular access device: Report of Operation Date of Procedure: 08/17/21 Pre-Operative Diagnosis: Lung cancer need for vascular access Post-Operative Diagnosis: Same Surgery/Procedure Performed:: Ultrasound and fluoroscopy guided right chest port placement utilizing right IJ Description of Procedure: After obtaining informed consent patient was brought back to the operating room MAC anesthesia was induced and the right chest and neck were prepped in normal sterile fashion. Ultrasound was used to evaluate both IJs and the right IJ was selected. Next, using a needle, the right IJ was accessed and a guidewire was passed on into the superior vena cava under fluoroscopy guidance. A small incision was made over the puncture site and the dilator introducer was placed over the guidewire. Next this was capped and the pocket was made for the port. 1% lidocaine with epinephrine was injected in the proposed port site. An incision was made with scalpel. Electrocautery was used to make a pocket under the skin and subcutaneous tissue. Hemostasis was obtained. Next, the catheter was tunneled up to the neck incision site and placed through the introducer. The peel-away introducer was removed and the position of the catheter was confirmed on fluoroscopy. Next, the catheter was trimmed and attached to the port with the locking device. Interrupted 2-0 Vicryl sutures were used to anchor the port to the chest wall and then the port was placed inside the pocket. The pocket was then flushed with saline and the port irrigated with saline. There was good blood return and the port flushed easily. Next, heparin was injected into the port. The skin was closed with subcutaneous interrupted 3-0 Vicryl sutures. A single 3-0 Vicryl sutures placed under the skin at the neck incision site. Steri-Strips were placed as well as op sites. Patient tolerated procedure well, was taken to PACU in stable condition. Chest x-ray will be obtained. Grafts/Implants Used: 8 [place] Power[employer] Admit VTE Documentation VTE Mechan Device Prophylaxis: SCD's
--- NOTE | 2021-08-17 09:30 | EX.PCM.DISCH ---
Discharge Instructions Procedure Port-A-Cath Diet Discharge Diet: Light diet - advance as tolerated (Pain medication may cause nausea. You should typically eat light foods as you take your pain medication.) Activity Discharge Activity: Return to Normal Activity and May Not Shower (Do not shower while port accessed) Dressing / Incision Call your doctor if your incision/area has: Continuous Slow Oozing, Sudden Increased Bleeding, Increased Pain/ Swelling, Increased Redness and Foul Smelling Discharge Call your doctor if you observe: Fever of 101 or Higher Remove Dressing in: 2 days Cleanse incision/area with: Soap & Water Follow Up Care Please Follow Up With: Sedrick Montiel MD When: as needed [phone] Test Results: Test results from this visit will be discussed in further detail at your follow-up appointment, if applicable. Discharge Plan Admission Attending Provider: Sedrick Montiel [facility] Providers: Madyson Reeves Discharge Orders/Prescriptions Prescriptions: No Action cholecalciferol (vitamin D3) 50,000 unit capsule 50,000 unit PO CANO Qty: 12 RF: 0 losartan 100 mg tablet 100 mg PO DAILY RF: 0 pravastatin 40 mg tablet 40 mg PO QHS Qty: 90 RF: 0 albuterol sulfate [ProAir HFA] 90 mcg/actuation HFA aerosol inhaler 2 puff INHALATION Q6H PRN (Reason: SOB) RF: 0 levothyroxine 25 mcg capsule 25 mcg capsule 25 mcg PO DAILY RF: 0 Trulicity 1.5 mg/0.5 mL pen injector 1.5 mg subcut CANO RF: 0 glipizide 10 mg tablet 10 mg PO DAILY RF: 0 amlodipine 10 mg tablet 10 mg PO DAILY RF: 0 Tradjenta 5 mg tablet 5 mg PO DAILY RF: 0 lidocaine-prilocaine 2.5-2.5 % cream 1 applic topical ONCE PRN (Reason: port access) 30 Days Qty: 30 RF: 2 ondansetron 4 mg tablet,disintegrating 4 mg PO Q8H PRN (Reason: nausea and vomiting) Qty: 30 RF: 2 gabapentin 100 MG capsule 300 mg PO QHS RF: 0 omeprazole 20 MG capsule 20 mg PO DAILY RF: 0 allopurinol 300 MG tablet 300 mg PO QHS RF: 0 hydrochlorothiazide 25 MG tablet 25 mg PO DAILY RF: 0 [facility] [Primary Care Provider] - Disposition Disposition (needs filled in before D/C Order can be placed): Home, Self Care
--- NOTE | 2021-08-17 09:35 | RAD_ITS ---
STUDY: X-RAY CHEST REASON FOR EXAM: Female, 71 years old. line placement -- in pacu TECHNIQUE: Single AP portable view of the chest. COMPARISON: 02/26/2019 FINDINGS: Interval placement of a right internal jugular chest port with tip of the catheter overlying the junction of the right atrium and superior vena cava with no pneumothorax. The lungs are clear and expanded. There is no demonstrated pleural abnormality. Normal size heart. Normal mediastinum and dragan. Normal visualized pulmonary arteries. Normal visualized aortic arch and descending thoracic aorta. Normal visualized thoracic spine. Normal visualized ribs, clavicles, and shoulders. There is no demonstrated abnormality of the visualized soft tissue structures of the upper abdomen. RAD/CXR for Line Placement IMPRESSION: 1. Interval placement of right internal jugular chest port with tip of catheter overlying the junction of the right atrium and superior vena cava with no pneumothorax. 2. No active disease. Electronically Signed: Billy Slaughter MD at 10:01 EDT Tel , Service support ,
== END 2021-08-17 10:26 | disposition home or self-care (01) ==
LOC: SDC 07:27 → AC 07:28
PROVIDERS: Referring Provider Surgery; Visit Provider Surgery
PROC: (CPT 36561; principal; 2021-08-17 09:15)
DX: Z45.2 Encounter for adjustment and management of vascular access device (principal); C34.31 Malignant neoplasm of lower lobe, right bronchus or lung; I10 Essential (primary) hypertension; E11.9 Type 2 diabetes mellitus without complications; E07.9 Disorder of thyroid, unspecified; K21.9 Gastro-esophageal reflux disease without esophagitis; E78.00 Pure hypercholesterolemia, unspecified; G47.33 Obstructive sleep apnea (adult) (pediatric); E66.01 Morbid (severe) obesity due to excess calories; Z68.43 Body mass index [BMI] 50.0-59.9, adult; Z79.84 Long term (current) use of oral hypoglycemic drugs; Z79.899 Other long term (current) drug therapy; Z87.891 Personal history of nicotine dependence
CPT/HCPCS: 00532; 36561; 71045; 77001; 77293; 77300; 77301; 77338; 82962; J7120; C1788

== ENCOUNTER → 2021-09-03 | Outpatient (CLI) | payer MEDICARE, MEDICAID, SELFPAY | END | disposition home or self-care (01) | LOC: LABSPEC 12:48 | DX: N93.9 Abnormal uterine and vaginal bleeding, unspecified (principal) ==

== ENCOUNTER → 2021-09-06 | Outpatient (CLI) | payer MEDICARE, MEDICAID, SELFPAY | END | disposition home or self-care (01) | LOC: LABSPEC 10:03 | PROVIDERS: Referring Provider Physician Assistant Surgical; Visit Provider Physician Assistant Surgical | DX: Z20.822 Contact with and (suspected) exposure to COVID-19 (principal) | CPT/HCPCS: 87635; U0005; U0003 ==

== ENCOUNTER 2021-09-19 12:25 | Observation (INO) | payer MEDICARE, MEDICAID, SELFPAY ==
[2021-09-19] VITALS (8 sets, daily range): BP systolic 105–139; BP diastolic 63–81; PULSE 99–115; RESP 16–20; TEMP 36–37.1; O2SAT 93–98; BMI 50.5; BMI 48.4
--- NOTE | 2021-09-19 12:45 | EX.ED.DYSGE1 ---
HPI History of Present Illness Chief Complaint: Nausea/Vomiting/Diarrhea Onset/Context/Timing Onset: Days (4) Context: Gradual Onset Timing: Continuous Quality: Weak Location: All over Current Severity: Severe Maximum Severity: Severe Worsened by: Nothing Relieved by: Nothing Associated Symptoms Associated Symptoms: See below Narrative Narrative: Patient has non-small cell lung cancer and is on IV chemotherapy. Her last treatment was 5 days ago and for the past 4 days, she has felt extremely weak, has been having 6 bouts or less per day of watery occasionally bloody diarrhea, and worsening pain in her chest with swallowing that has been there for the past 2 months since she started radiation and chemotherapy. She denies any vomiting. She is coughing without any fevers. She has lost sensation of taste and smell. No known history of Covid. Edema in her legs is chronic unchanged. Her mouth is dry and she feels dehydrated. She has had no syncopal episodes. Her chest is sore in the parasternal area only when she has coughing spasms, which are triggered with deep inspiration. She states she is breathing through the mouth and not the nose but breathing okay. No known history of chronic heart or lung disease although she has restrictive lung disease in her EMR. [facility] Medical History Abdominal pain Ambulates with cane Anxiety Back pain Bladder disease Cancer Chills Cholelithiasis Cough CPAP (continuous positive airway pressure) dependence Dehydration Diabetes Diabetes mellitus, type II Dietary restriction DJD (degenerative joint disease) Easy bruising Encounter for education Fatty food intolerance Former smoker Gastric reflux Gout High cholesterol History of echocardiogram History of edema History of nephrolithiasis History of pain when walking Hyperlipidemia Hypertension Hypertension Hypomagnesemia Lactic acidosis Migraine headache Morbid obesity with BMI of 45.0-49.9, adult Rheumatoid arthritis Shortness of breath on exertion Sleep apnea Thyroid disease Wears glasses Home Medications gabapentin 300 mg PO QHS 03/04/14 [History Last Taken 04/03/14 22:00 100 mg] allopurinol 300 mg PO QHS 07/10/15 [History Last Taken Unknown] hydrochlorothiazide 25 mg PO DAILY 07/10/15 [History Last Taken Unknown] omeprazole 20 mg PO DAILY 07/10/15 [History Last Taken 08/17/21] albuterol sulfate 90 mcg/actuation aerosol inhaler 2 puff INHALATION Q6H PRN 08/16/19 [History Last Taken Unknown] cholecalciferol (vitamin D3) 1,250 mcg (50,000 unit) capsule 50,000 unit PO CANO #12 cap 08/16/19 [History Last Taken Unknown] losartan 100 mg tablet 100 mg PO DAILY 08/16/19 [History Last Taken 08/17/21] pravastatin 40 mg tablet 40 mg PO QHS #90 tab 08/16/19 [History Last Taken Unknown] levothyroxine 25 mcg capsule 25 mcg PO DAILY 10/22/19 [History Last Taken 08/17/21] dulaglutide 1.5 mg/0.5 mL subcutaneous pen injector 1.5 mg SUBCUT CANO 04/20/21 [History Last Taken Unknown] amlodipine 10 mg tablet 10 mg PO DAILY 08/05/21 [History Last Taken 08/17/21] glipizide 10 mg tablet 10 mg PO DAILY 08/05/21 [History Last Taken Unknown] linagliptin 5 mg tablet 5 mg PO DAILY 08/09/21 [History Last Taken Unknown] lidocaine-prilocaine 2.5 %-2.5 % topical cream 1 applic TOPICAL ONCE PRN 30 Days #30 g 08/16/21 [Rx Last Taken Unknown] ondansetron 4 mg disintegrating tablet 4 mg PO Q8H PRN #30 tab 08/16/21 [Rx Last Taken Unknown] insulin glargine 100 unit/mL (3 mL) subcutaneous pen 10 unit SUBCUT QPM 09/08/21 [History Last Taken Unknown] Allergy/AdvReac Type Severity Reaction Status Date / Time No Known Allergies Allergy Verified 09/19/21 12:31 Family History Father Lung cancer Sister Breast cancer Other Heart disease Kidney disease Surgical History H/O tubal ligation History of cholecystectomy Hx of colonoscopy Social History adopted: No household members: none number of children: 3 current occupational status: retired Smoking Status: Former smoker Tobacco: How many years used: 2 alcohol intake: current alcohol intake frequency: 0-2 drinks per day substance use type: does not use what type of physical activity do you participate in: none additional social history: ROS ROS ED Constitutional Constitutional ED: Reports fatigue and malaise; Denies chills or fever(s) Eyes Eyes: Denies change in vision or diplopia ENT ENT ED: Reports loss taste/smell; Denies rhinorrhea or sore throat Cardiovascular Cardiovascular: Reports as per HPI, chest pain and pedal edema; Denies palpitations Respiratory/Chest Respiratory/Chest: Reports as per HPI, cough and dyspnea Gastrointestinal Gastrointestinal: Reports diarrhea and hematochezia; Denies abdominal pain, nausea or vomiting Genitourinary Genitourinary ED: Denies dysuria or hematuria Musculoskeletal Musculoskeletal: Denies back pain or neck pain Integumentary Denies abscess or rash Neurologic Neurologic: Denies headache(s), paresthesias or weakness Psychiatric Psychiatric: Denies anxiety or suicidal thoughts EXAM Physical Exam Const Vital Signs: 09/19/21 12:26 Temperature 98.7 F Temperature Source Temporal Pulse Rate 115 H Respiratory Rate 18 Blood Pressure 139/81 H Blood Pressure Mean 100 Pulse Ox 96 Oxygen Delivery Method Room Air Positive well nourished, well developed and obese General Appearance ED: well developed and NAD Nutritional Appearance: obese HEENT Reports dry mucous membranes normocephalic and atraumatic Mouth ED: Yes dry mucous membranes and No tongue abnormal Mouth: dry mucous membranes, No tongue abnormal and No thrush Throat: posterior oropharynx normal Eyes PERRL and EOMs intact bilaterally Neck full ROM and supple Chest Wall Chest Narrative: Parasternal tenderness bilaterally without crepitance or abnormal skin inspection Resp normal respiratory effort, normal air movement, no retractions and no use of accessory muscles Resp Narrative: End expiratory wheezes bilaterally, otherwise unremarkable. Cardio regular rate, regular rhythm and no murmurs Rate: tachycardic GI non-tender and non-distended Auscultation: normoactive bowel sounds Palpation: soft Back/Spine no CVA tenderness General Back: other FROM Extremity normal to inspection General Extremety ED: Yes edema; Negative for pulses abnormal or tenderness General Extremity: edema bilateral lower extremity Details: moderate; Negative for pulses abnormal Neuro oriented x3, CN's II-XII intact bilaterally and no sensory deficits noted Sensorium / Orientation: awake and alert Motor Exam: strength 5/5 throughout Skin no rashes or lesions noted and no wounds MDM MDM MDM Narrative Medical decision making narrative: Patient was given gentle IV fluids, and observed. She feels very weak and dehydrated, her labs are consistent with some prerenal azotemia as she does not necessarily have JANESSA however. The rest of her work-up is unremarkable, she does not appear to be in CHF or have any pneumonia, but she does have leukopenia, this is worse than she had been recently but she does not qualify for neutropenia and she had no fevers. Her Covid test returned negative. I think she would benefit from continued IV fluids and inpatient observation, she is amenable to that plan. Lab Data Attestation: I reviewed the patient's lab results. Labs: Laboratory Results - last 24 hr 09/19/21 09/19/21 09/19/21 13:08 13:08 13:08 WBC 1.2 L* RBC 3.75 L Hgb 11.5 L Hct 33.6 L MCV 89.6 MCH 30.7 MCHC 34.2 RDW Std Deviation 42.8 RDW Coeff of Mahnaz 13.2 Plt Count 104 L MPV 8.5 Immature Gran % (Auto) 1.600 H Neut % (Auto) 70.8 H Lymph % (Auto) 14.6 L Taney % (Auto) 11.4 H Eos % (Auto) 0.0 Baso % (Auto) 1.6 H Absolute Neuts (auto) 0.9 L Absolute Lymphs (auto) 0.18 L Nucleated RBC % 0 Diff Path Review May foll Sodium 141 Potassium 4.1 Chloride 109 H Carbon Dioxide 25.0 Anion Gap 7 BUN 25 H Creatinine 1.35 H Estim Creat Clear Calc 34.89 Est GFR (MDRD) Af Amer 50 L Est GFR (MDRD) Non-Af 41 L BUN/Creatinine Ratio 18.5 Glucose 200 H Calcium 8.4 L Total Bilirubin 0.90 AST 16 ALT 24 Alkaline Phosphatase 68 Troponin I High Sens 6 B-Natriuretic Peptide 24.1 Total Protein 6.3 L Albumin 3.1 L Globulin 3.2 Albumin/Globulin Ratio 1.0 Radiography Diagnostic Testing: Clinical Impression(s) from Imaging Studies Chest X-Ray 09/19/21 13:25 IMPRESSION: No acute findings in the chest. at 1348 Reported and signed by: Osmani Lew MD Electronically Signed: Osmani Lew MD at 13:47 EST Tel , Service support , EKG Initial EKG: Attestation: I personally reviewed and interpreted this EKG as follows: Interpretation: No Acute Injury Pattern and Sinus Tachycardia Discharge Plan Triage Chief Complaint: Nausea/Vomiting/Diarrhea Other Complaint: Diarrhea ED Provider: Issa Grigsby Dx/Rx/DC Orders Clinical Impression: Dehydration, Non-small cell cancer of right lung, Acute diarrhea, Immunocompromised state, Odynophagia, Leukopenia due to antineoplastic chemotherapy Prescriptions: No Action cholecalciferol (vitamin D3) 50,000 unit capsule 50,000 unit PO CANO Qty: 12 RF: 0 losartan 100 mg tablet 100 mg PO DAILY RF: 0 pravastatin 40 mg tablet 40 mg PO QHS Qty: 90 RF: 0 albuterol sulfate [ProAir HFA] 90 mcg/actuation HFA aerosol inhaler 2 puff INHALATION Q6H PRN (Reason: SOB) RF: 0 levothyroxine 25 mcg capsule 25 mcg capsule 25 mcg PO DAILY RF: 0 Trulicity 1.5 mg/0.5 mL pen injector 1.5 mg subcut CANO RF: 0 glipizide 10 mg tablet 10 mg PO DAILY RF: 0 amlodipine 10 mg tablet 10 mg PO DAILY RF: 0 Tradjenta 5 mg tablet 5 mg PO DAILY RF: 0 lidocaine-prilocaine 2.5-2.5 % cream 1 applic topical ONCE PRN (Reason: port access) 30 Days Qty: 30 RF: 2 ondansetron 4 mg tablet,disintegrating 4 mg PO Q8H PRN (Reason: nausea and vomiting) Qty: 30 RF: 2 Basaglar KwikPen U-100 Insulin 100 unit/mL (3 mL) insulin pen 10 unit subcut QPM RF: 0 gabapentin 100 MG capsule 300 mg PO QHS RF: 0 omeprazole 20 MG capsule 20 mg PO DAILY RF: 0 allopurinol 300 MG tablet 300 mg PO QHS RF: 0 hydrochlorothiazide 25 MG tablet 25 mg PO DAILY RF: 0 Primary Care Provider: [facility] Petty Silva Referrals: [facility] Petty Silva [Primary Care Provider] - Disposition Disposition: Acute Care Hospital [facility]
--- NOTE | 2021-09-19 12:50 | EKG12_ITS ---
Test Reason : Blood Pressure : / mmHG Vent. Rate : 106 BPM Atrial Rate : 106 BPM P-R Int : 134 ms QRS Dur : 104 ms QT Int : 360 ms P-R-T Axes : 045 026 009 degrees QTc Int : 478 ms Sinus tachycardia Nonspecific T wave abnormality Abnormal ECG Confirmed by DECLAN HERNANDEZ, MICHELE ([id number]), video editor DASHAWN DIAZ ([id number]) on 09/21/2021 9:13:23 AM Referred By: MENDOZA Confirmed By:MICHELE MANRIQUEZ MD
[2021-09-19] MEDS: Morphine 2 MG/ML Syringe IV (13:15)
[2021-09-19] MEDS: 0.9% Normal Saline 1,000 ML 250 ML IV (13:16)
[2021-09-19] MEDS: Mag Hydrox/Al Hydrox/Simeth 30 ML UDC PO (13:16)
[2021-09-19 13:18] LABS: Absolute Lymphocyte Count 0.18 X10^3/uL (0.83-4.51); Absolute Neutrophil Count 0.9 X10^3/uL (2.0-7.7); Basophil# 0.02 X10^3/uL; Basophil% 1.6 % (0-1); Hematocrit 33.6 % (37-47); Hemoglobin 11.5 g/dL (12.0-15.0); Lymphocyte # 0.18 X10^3/ul (0.83-4.51); Lymphocyte % 14.6 % (19-41); Mean Corp Hgb Conc 34.2 g/dL (32-36); Mean Corpuscular Hgb 30.7 pg (27.0-32.0); Mean Corpuscular Volume 89.6 fL (81-99); Mean Platelet Vol. 8.5 fl (6.2-12.0); Monocyte# 0.14 X10^3/uL; Monocyte% 11.4 % (0-10); NRBC Flagged by Analyzer 0 % (0-5); Neutrophil # 0.87 X10^3/uL (2.7-7.7); Neutrophil % 70.8 % (47-70); POSITIVE COUNT YES; POSITIVE DIFFERENTIAL YES; Platelet Count 104 K/mm3 (150-450); RBC Distribution Width CV 13.2 % (11.6-14.6); RBC Distribution Width SD 42.8 fl (35.1-43.9); Red Blood Count 3.75 M/mm3 (4.2-5.4); White Blood Count 1.2 K/mm3 (4.4-11.0)
[2021-09-19 13:20] LABS: Differential Indicated SCAN CRITERIA MET
--- NOTE | 2021-09-19 13:25 | RAD_ITS ---
EXAM: XR CHEST, 1 VIEW : 1950 CLINICAL INDICATION: cough TECHNIQUE: Frontal view of the chest. This report was created using [employer] report generation technology. COMPARISON: 08/17/2021 FINDINGS: LUNGS AND PLEURAL SPACES: Unremarkable. No consolidation or edema. No pneumothorax. No effusion. HEART: Unremarkable. Cardiac silhouette not enlarged. MEDIASTINUM: Central airways and mediastinal contour are unremarkable. BONES/JOINTS: Unremarkable. SOFT TISSUES: Unremarkable. TUBES, LINES AND DEVICES: Right-sided Port-A-Cath is in stable position. RAD/Chest 1 View (Portable) IMPRESSION: No acute findings in the chest. at 1348 Reported and signed by: Osmani Lew MD Electronically Signed: Osmani Lew MD at 13:47 EST Tel , Service support ,
--- NOTE | 2021-09-19 13:41 | PCM.HP.STD ---
HPI - General General Date of Admission: 09/19/21 Date of Service: 09/19/21 Chief Complaint: Odynophagia, Diarrhea w/ recent chemotherapy 5 days prior. HPI Narrative The patient is a 71 y/o F w/ PMHx: CKD stage III unclear subtype, Morbid Obesity, GRETEL on CPAP, Anxiety and Depression, HTN, HLD, GERD, Diabetes mellitus type II, Rheumatoid arthritis, Hypothyroidism, Hx Migraines, Former Tobacco use, Chronic COPD, Non small cell lung cancer of chemotherapy and radiation following w/ Dr. Arguello with most recently chemotherapy the Monday prior (~5 days prior to current presentation) who presents to the [facility] ED on 09/19/21 with history of ongoing diarrhea at least 4 episodes daily with no abdominal cramping or pain associated since her chemotherapy which she has not had with her prior regimen with no recent antibiotic therapy in addition to significant severe reduction in oral intake per her report secondary to severe pain with any swallowing, describing it as if she had gotten food down the wrong way unfortunately causing her to avoid intake with increasing fatigue and malaise prompting eventual ED evaluation. Work-up in the ED included T 98.7, heart rate 115, BP 139/81, respiratory rate 18, 96% on room air, CBC with WC 1.2, hemoglobin 11.5, platelet 104 with ANC 0.9, ALN 0.18 with mildly increased immature granulocytes, negative Covid rapid testing, CMP with chloride 109, BUN/creat 25/1.35, glucose 200, unremarkable hepatic profile, BNP 24.1, high-sensitivity troponin 6, chest x-ray with no acute cardiopulmonary findings. In the ED patient administered normal saline, GI cocktail as well as morphine 2 mg IV x1. [facility] Medical History Abdominal pain Ambulates with cane Anxiety Back pain Bladder disease Cancer Chills Cholelithiasis Cough CPAP (continuous positive airway pressure) dependence Dehydration Diabetes Diabetes mellitus, type II Dietary restriction DJD (degenerative joint disease) Easy bruising Encounter for education Fatty food intolerance Former smoker Gastric reflux Gout High cholesterol History of echocardiogram History of edema History of nephrolithiasis History of pain when walking Hyperlipidemia Hypertension Hypertension Hypomagnesemia Lactic acidosis Migraine headache Morbid obesity with BMI of 45.0-49.9, adult Rheumatoid arthritis Shortness of breath on exertion Sleep apnea Thyroid disease Wears glasses Home Medications gabapentin 300 mg PO QHS 03/04/14 [History Last Taken 04/03/14 22:00 100 mg] allopurinol 300 mg PO QHS 07/10/15 [History Last Taken Unknown] hydrochlorothiazide 25 mg PO DAILY 07/10/15 [History Last Taken Unknown] omeprazole 20 mg PO DAILY 07/10/15 [History Last Taken 08/17/21] albuterol sulfate 90 mcg/actuation aerosol inhaler 2 puff INHALATION Q6H PRN 08/16/19 [History Last Taken Unknown] cholecalciferol (vitamin D3) 1,250 mcg (50,000 unit) capsule 50,000 unit PO CANO #12 cap 08/16/19 [History Last Taken Unknown] losartan 100 mg tablet 100 mg PO DAILY 08/16/19 [History Last Taken 08/17/21] pravastatin 40 mg tablet 40 mg PO QHS #90 tab 08/16/19 [History Last Taken Unknown] levothyroxine 25 mcg capsule 25 mcg PO DAILY 10/22/19 [History Last Taken 08/17/21] dulaglutide 1.5 mg/0.5 mL subcutaneous pen injector 1.5 mg SUBCUT CANO 04/20/21 [History Last Taken Unknown] amlodipine 10 mg tablet 10 mg PO DAILY 08/05/21 [History Last Taken 08/17/21] glipizide 10 mg tablet 10 mg PO DAILY 08/05/21 [History Last Taken Unknown] linagliptin 5 mg tablet 5 mg PO DAILY 08/09/21 [History Last Taken Unknown] lidocaine-prilocaine 2.5 %-2.5 % topical cream 1 applic TOPICAL ONCE PRN 30 Days #30 g 08/16/21 [Rx Last Taken Unknown] ondansetron 4 mg disintegrating tablet 4 mg PO Q8H PRN #30 tab 08/16/21 [Rx Last Taken Unknown] insulin glargine 100 unit/mL (3 mL) subcutaneous pen 10 unit SUBCUT QPM 09/08/21 [History Last Taken Unknown] Allergy/AdvReac Type Severity Reaction Status Date / Time No Known Allergies Allergy Verified 09/19/21 12:31 Family History (Updated 09/19/21 @ 14:[address] Dalia Baca MD) Father Lung cancer Sister Breast cancer Mother Hypertension Other Heart disease Kidney disease Surgical History H/O tubal ligation History of cholecystectomy Hx of colonoscopy Social History adopted: No household members: none number of children: 3 current occupational status: retired Smoking Status: Former smoker Tobacco: How many years used: 2 alcohol intake: current alcohol intake frequency: 0-2 drinks per day substance use type: does not use what type of physical activity do you participate in: none additional social history: ROS ROS Narrative Admission Review of Systems: CONSTITUTIONAL: No weight loss, fever, chills, + weakness or fatigue. HEENT: Eyes: No visual loss, blurred vision, double vision or yellow sclerae. Ears, Nose, Throat: No hearing loss, sneezing, congestion, runny nose or sore throat. SKIN: No rash or itching, lesions, wounds. CARDIOVASCULAR: No chest pain, chest pressure or chest discomfort, palpitations, edema, orthopnea, syncopal events. RESPIRATORY: No shortness of breath, cough or sputum, wheezing, hemoptysis. GASTROINTESTINAL: + anorexia, odynophagia, diarrhea, No nausea, vomiting, abdominal pain, melena, BRBPR. GENITOURINARY: No dysuria, frequency, urgency or retention. NEUROLOGICAL: No headache, dizziness, syncope, paralysis, ataxia, numbness or tingling in the extremities, focal weakness, change in bowel or bladder control, seizure. MUSCULOSKELETAL: + muscle, back pain, joint pain or stiffness. HEMATOLOGIC: + anemia, bleeding or bruising. LYMPHATICS: No enlarged nodes. No history of splenectomy. PSYCHIATRIC: + history of depression or anxiety. ENDOCRINOLOGIC: No reports of sweating, cold or heat intolerance. No polyuria or polydipsia. ALLERGIES: No history of asthma, hives, eczema or rhinitis. Vital Signs Vital Signs Vital Signs: 09/19/21 12:26 Temperature 98.7 F Temperature Source Temporal Pulse Rate 115 H Respiratory Rate 18 Blood Pressure 139/81 H Blood Pressure Mean 100 Pulse Ox 96 Oxygen Delivery Method Room Air Weight Weight: 303 lb 12.752 oz Body Mass Index (BMI) 50.5 Physical Exam Narrative Physical Examination: General: Awake, alert, oriented x 3 and cooperative, seated upright in the ED bed, fatigued, no acute distress. Skin: Normal color, normal turgor, no icterus, no cyanosis. HEENT: AT/NC, EOMI, PERRLA, moderately dry MM, no carotid bruits or JVD noted, no marked OP erythema or exudates. Lungs: Mildly diminished, greater bases, distant likely secondary to habitus, moderate effort, no rales, ronchi or wheezing. Heart: Regular rate and rhythm; no gallop, rub audible. Abdomen: Soft, morbidly obese, NTTP, difficult to discern distention given habitus, mildly hyperactive bowel sounds, no obvious HSM however difficult exam given morbidly obese habitus. Extremities: No cyanosis, no clubbing, mild bilateral ankle to distal abernathy not markedly pitting chronic edema. Neurological: Patient awake, alert, oriented as noted, cognitive function intact; pupils equally reactive to light and accommodation, cranial nerves II-XII grossly normal, moving all 4 extremities, no focal deficits, strength moderately global decrease. Psychiatric: Affect appears mildly fatigued otherwise normal, no acute evidence of depressive or anxiety feelings. Results Lab / Micro Data Result Diagrams: 09/19/21 13:08 09/19/21 13:08 Labs: Laboratory Results - last 24 hr 09/19/21 13:08: WBC 1.2 L*, RBC 3.75 L, Hgb 11.5 L, Hct 33.6 L, MCV 89.6, MCH 30.7, MCHC 34.2, RDW Std Deviation 42.8, RDW Coeff of Mahnaz 13.2, Plt Count 104 L, MPV 8.5, Immature Gran % (Auto) 1.600 H, Neut % (Auto) 70.8 H, Lymph % (Auto) 14.6 L, [place] % (Auto) 11.4 H, Eos % (Auto) 0.0, Baso % (Auto) 1.6 H, Absolute Neuts (auto) 0.9 L, Absolute Lymphs (auto) 0.18 L, Nucleated RBC % 0, Diff Path Review May foll Micro: Microbiology 09/19/21 12:55 Nasal Secretion SARS-CoV-2 Antigen (Rapid) - Final Assessment & Plan Assessment/Plan (1) Acute diarrhea: (2) Odynophagia: PLAN: The patient is a 71 y/o F w/ PMHx: CKD stage III unclear subtype, Morbid Obesity, GRETEL on CPAP, Anxiety and Depression, HTN, HLD, GERD, Diabetes mellitus type II, Rheumatoid arthritis, Hypothyroidism, Hx Migraines, Former Tobacco use, Chronic COPD, Non small cell lung cancer of chemotherapy and radiation following w/ Dr. Arguello with most recently chemotherapy the Monday prior (~5 days prior to current presentation) who presents to the [facility] ED on 09/19/21 with history of ongoing diarrhea at least 4 episodes daily with no abdominal cramping or pain associated since her chemotherapy which she has not had with her prior regimen with no recent antibiotic therapy in addition to significant severe reduction in oral intake per her report secondary to severe pain with any swallowing. #1. Intractable diarrhea, suspected secondary to recent chemotherapy: We will admit to medical surgical floor, will maintain on judicious hydration, we will continue hydration, will obtain C. difficile and stool enteric pathogen to be cautious however do think this is secondary to likely chemotherapy, will defer any immediate antibiotic therapy at this time, if these studies are negative will initiate loperamide regimen. If patient certainly has been only taking in minimal food specifically likely only clears this certainly could be contributing. #2. Acute on chronic pancytopenia with underlying Non-small cell lung cancer on chemotherapy/radiation: Admission CBC with WC 1.2, hemoglobin 11.5, platelet 104 with ANC 0.9, ALN 0.18 with mildly increased immature granulocytes, recent chemotherapy as noted 5 days prior to current presentation, will request involvement by oncology specifically Dr. Arguello given this patient has several ongoing issues including significant dysphagia, continue to monitor with repeat CBC in a.m. and if appropriate would initiate Granix therapy and if any concerns and significantly neutropenic onset could consider empiric antibiotic therapy additionally. Mag and phos requested. #3. 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 If needed may also consider addition of scheduled reglan too. Will avoid acidic foods and no caffeine. #4. Diabetes mellitus type II with neuropathy: Hold oral home regimen, hold dulaglutide, continue home insulin regimen however if n.p.o. status may consider decreasing to one half if blood sugars decreased, will maintain on pureed ADA however if fails will trial clears, will maintain n.p.o. after midnight however pending GI evaluation, accu checks w/ ISS. Continue gabapentin regimen. #5. Chronic COPD: Patient not on any regimen aside from albuterol, given ED evaluation with mild and expiratory wheezing will maintain on ATC duonebs, PRN albuterol, HOB, IS parameters. #6. Morbid Obesity: Weight loss and lifestyle changes encouraged, nutrition consulted primarily secondary to recent poor oral intake history. #7. Hypertension: Given presentation holding patient hydrochlorothiazide, continue amlodipine, losartan, as needed IV hydralazine in the interim. #8. Hyperlipidemia: We will continue patient home statin therapy. #9. Anxiety and depression: Patient with history however she is not currently on any regimen, given significant life events with cancer and ongoing therapy recommend follow-up with PCP and consideration for counseling if necessary. #10. Hypothyroidism: Continue home synthroid regimen. #11. Former tobacco usage: Encourage continued tobacco cessation. #12. GERD: We will maintain on IV PPI given presentation as noted. #13. GRETEL: We will continue CPAP nightly. #14. Chronic Kidney Disease Stage III, unclear subtype: Admission BUN/Cr 25/1.35, baseline renal function primarily 1.3-1.5, repeat BMP in AM. #15. DVT prophylaxis: SCDs, will hold on chemoprophylaxis until GI evaluation, if no endoscopy intention will add Lovenox cautiously given acute presentation #1 with low threshold to hold. #16. CODE status: Patient does not have healthcare power of civil attorney nor living will in place but she notes that she is interested in setting these items up therefore referred her to case management/social work for help during her admission. She does report that this would be her brother. Discussed CODE status at length including difference between FULL code, DNR-CCA and DNR-CC status. Following discussions about the differences in these status, requested DNR-CCA, no intubation status. Advanced Care Planning Face to Face Time: 16 minutes. Charges/Coding Visit Charges OBSV E&M: 19360 Initial observation care L3 Procedures Hospitalists Procedures: 47011 Advncd Care Plan 30 Min
[2021-09-19 13:51] LABS: BNP,B-Type NATRIURETIC PEPTIDE 24.1 pg/mL (0-100)
[2021-09-19 13:53] LABS: AST(SGOT) 16 U/L (15-37); Alanine Aminotransfer ALT/SGPT 24 U/L (13-56); Albumin, Serum 3.1 g/dL (3.2-5.0); Alkaline Phosphatase 68 U/L (45-117); Anion Gap 7 (5-15); BUN 25 mg/dL (7-18); BUN/Creat Ratio 18.5 RATIO (10-20); Calcium,Total 8.4 mg/dL (8.5-10.1); Chloride 109 mmol/L (98-107); Creatinine, Serum 1.35 mg/dL (0.55-1.02); EST Glomerular Filtration Rate 41 mL/min (>60); Est Glom Filt Rate - Afr Amer 50 mL/min (>60); Estimated Creatinine Clearance 34.89 ml/min; Globulin 3.2 g/dL (2.2-4.2); Glucose 200 mg/dL (74-106); Potassium 4.1 mmol/L (3.5-5.1); Protein, Total 6.3 g/dL (6.4-8.2); Sodium Level 141 mmol/L (136-145); Troponin-I HS 6 pg/mL (3.0-54.0)
[2021-09-19 14:28] LABS: Magnesium 1.3 mg/dL (1.6-2.6); Phosphorus 2.7 mg/dL (2.5-4.9)
--- NOTE | 2021-09-19 16:46 | PCS.PANDOC ---
PANDEMIC DOCUMENTATION INITIATED: Date: 06/07/2021 Time: 190
[2021-09-19] MEDS: 0.9% Normal Saline 1,000 ML 100 ML IV (17:08)
[2021-09-19] MEDS: 0.9% Saline Lock 10 ML Syringe IV (17:09)
[2021-09-19 17:21] LABS: Bedside Glucose 141 mg/dL (70-110)
[2021-09-19] MEDS: Ipratropium/Albuterol Sulfate 3 ML AMPUL.NEB INHALATION (20:15)
[2021-09-19] MEDS: Allopurinol 300 MG Tablet PO (21:09)
[2021-09-19] MEDS: Pravastatin 40 MG Tablet PO (21:09)
[2021-09-19] MEDS: Gabapentin 300 MG Capsule PO (21:09)
[2021-09-19 21:21] LABS: Bedside Glucose 170 mg/dL (70-110)
[2021-09-20 03:10] VITALS: BP 106/79; PULSE 102; RESP 18; TEMP 36.9; O2SAT 97
[2021-09-20] MEDS: 0.9% Normal Saline 1,000 ML 100 ML IV ×2 (03:51→10:34)
[2021-09-20] MEDS: Levothyroxine 25 MCG TABLET PO (06:15)
[2021-09-20 06:26] LABS: Bedside Glucose 134 mg/dL (70-110)
--- NOTE | 2021-09-20 06:26 | PCM.PN.HOSP ---
Subjective Subjective Mag being given. Did well with dinner, still need stool. Objective Data Objective Data Vital Signs: Vital Signs Temp Pulse Resp BP Pulse Ox 98.4 F 102 H 18 106/79 97 09/20/21 03:10 09/20/21 03:10 09/20/21 03:10 09/20/21 03:10 09/20/21 03:10 Oxygen Flow Rate (L/min) 2 Oxygen Delivery Method Nasal Cannula Weight: 296 lb 15.402 oz Body Mass Index (BMI) 48.4 Intake & Output: Intake and Output for Last 24 Hours 09/18/21 09/19/21 09/20/21 23:59 23:59 23:59 Intake Total 1564.17 / 1564.17 985 / 985 Balance 1564.17 / 1564.17 985 / 985 Lab / Micro Data Result Diagrams: 09/19/21 13:08 09/19/21 13:08 Labs: Laboratory Results - last 24 hr 09/19/21 13:08: WBC 1.2 L*, RBC 3.75 L, Hgb 11.5 L, Hct 33.6 L, MCV 89.6, MCH 30.7, MCHC 34.2, RDW Std Deviation 42.8, RDW Coeff of Mahnaz 13.2, Plt Count 104 L, MPV 8.5, Immature Gran % (Auto) 1.600 H, Neut % (Auto) 70.8 H, Lymph % (Auto) 14.6 L, [place] % (Auto) 11.4 H, Eos % (Auto) 0.0, Baso % (Auto) 1.6 H, Absolute Neuts (auto) 0.9 L, Absolute Lymphs (auto) 0.18 L, Nucleated RBC % 0, Diff Path Review February09/19/21 13:08: Sodium 141, Potassium 4.1, Chloride 109 H, Carbon Dioxide 25.0, Anion Gap 7, BUN 25 H, Creatinine 1.35 H, Estim Creat Clear Calc 34.89, Est GFR (MDRD) Af Amer 50 L, Est GFR (MDRD) Non-Af 41 L, BUN/Creatinine Ratio 18.5, Glucose 200 H, Calcium 8.4 L, Total Bilirubin 0.90, AST 16, ALT 24, Alkaline Phosphatase 68, Troponin I High Sens 6, Total Protein 6.3 L, Albumin 3.1 L, Globulin 3.2, Albumin/Globulin Ratio 1.0 09/19/21 13:08: B-Natriuretic Peptide 24.1 09/19/21 13:08: Phosphorus 2.7, Magnesium 1.3 L 09/19/21 17:13: POC Glucose 141 H 09/19/21 21:08: POC Glucose 170 H 09/20/21 06:14: POC Glucose 134 H Micro: Microbiology 09/19/21 12:55 Nasal Secretion SARS-CoV-2 Antigen (Rapid) - Final Radiography Diagnostic Testing: Radiology Impression Chest X-Ray 09/19/21 13:25 IMPRESSION: No acute findings in the chest. at 1348 Reported and signed by: Osmani Lew MD Electronically Signed: Osmani Lew MD at 13:47 EST Tel , Service support , Physical Exam Narrative Physical Examination: General: Awake, alert, oriented x 3 and cooperative, seated upright in the ED bed, fatigued, no acute distress. Skin: Normal color, normal turgor, no icterus, no cyanosis. HEENT: AT/NC, EOMI, PERRLA, moderately dry MM, no carotid bruits or JVD noted, no marked OP erythema or exudates. Lungs: Mildly diminished, greater bases, distant likely secondary to habitus, moderate effort, no rales, ronchi or wheezing. Heart: Regular rate and rhythm; no gallop, rub audible. Abdomen: Soft, morbidly obese, NTTP, difficult to discern distention given habitus, mildly hyperactive bowel sounds, no obvious HSM however difficult exam given morbidly obese habitus. Extremities: No cyanosis, no clubbing, mild bilateral ankle to distal abernathy not markedly pitting chronic edema. Neurological: Patient awake, alert, oriented as noted, cognitive function intact; pupils equally reactive to light and accommodation, cranial nerves II-XII grossly normal, moving all 4 extremities, no focal deficits, strength moderately global decrease. Psychiatric: Affect appears mildly fatigued otherwise normal, no acute evidence of depressive or anxiety feelings. Assessment & Plan Assessment/Plan (1) Acute diarrhea: (2) Odynophagia: PLAN: The patient is a 71 y/o F w/ PMHx: CKD stage III unclear subtype, Morbid Obesity, GRETEL on CPAP, Anxiety and Depression, HTN, HLD, GERD, Diabetes mellitus type II, Rheumatoid arthritis, Hypothyroidism, Hx Migraines, Former Tobacco use, Chronic COPD, Non small cell lung cancer of chemotherapy and radiation following w/ Dr. Arguello with most recently chemotherapy the Monday prior (~5 days prior to current presentation) who presents to the [facility] ED on 09/19/21 with history of ongoing diarrhea at least 4 episodes daily with no abdominal cramping or pain associated since her chemotherapy which she has not had with her prior regimen with no recent antibiotic therapy in addition to significant severe reduction in oral intake per her report secondary to severe pain with any swallowing. #1. Intractable diarrhea, suspected secondary to recent chemotherapy: We will admit to medical surgical floor, will maintain on judicious hydration, we will continue hydration, will obtain C. difficile and stool enteric pathogen to be cautious however do think this is secondary to likely chemotherapy, will defer any immediate antibiotic therapy at this time, if these studies are negative will initiate loperamide regimen. If patient certainly has been only taking in minimal food specifically likely only clears this certainly could be contributing. #2. Acute on chronic pancytopenia with underlying Non-small cell lung cancer on chemotherapy/radiation: Admission CBC with WC 1.2, hemoglobin 11.5, platelet 104 with ANC 0.9, ALN 0.18 with mildly increased immature granulocytes, recent chemotherapy as noted 5 days prior to current presentation, will request involvement by oncology specifically Dr. Arguello given this patient has several ongoing issues including significant dysphagia, continue to monitor with repeat CBC in a.m. and if appropriate would initiate Granix therapy and if any concerns and significantly neutropenic onset could consider empiric antibiotic therapy additionally. Mag and phos requested. #3. 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 If needed may also consider addition of scheduled reglan too. Will avoid acidic foods and no caffeine. #4. Diabetes mellitus type II with neuropathy: Hold oral home regimen, hold dulaglutide, continue home insulin regimen however if n.p.o. status may consider decreasing to one half if blood sugars decreased, will maintain on pureed ADA however if fails will trial clears, will maintain n.p.o. after midnight however pending GI evaluation, accu checks w/ ISS. Continue gabapentin regimen. #5. Chronic COPD: Patient not on any regimen aside from albuterol, given ED evaluation with mild and expiratory wheezing will maintain on ATC duonebs, PRN albuterol, HOB, IS parameters. #6. Morbid Obesity: Weight loss and lifestyle changes encouraged, nutrition consulted primarily secondary to recent poor oral intake history. #7. Hypertension: Given presentation holding patient hydrochlorothiazide, continue amlodipine, losartan, as needed IV hydralazine in the interim. #8. Hyperlipidemia: We will continue patient home statin therapy. #9. Anxiety and depression: Patient with history however she is not currently on any regimen, given significant life events with cancer and ongoing therapy recommend follow-up with PCP and consideration for counseling if necessary. #10. Hypothyroidism: Continue home synthroid regimen. #11. Former tobacco usage: Encourage continued tobacco cessation. #12. GERD: We will maintain on IV PPI given presentation as noted. #13. GRETEL: We will continue CPAP nightly. #14. Chronic Kidney Disease Stage III, unclear subtype: Admission BUN/Cr 25/1.35, baseline renal function primarily 1.3-1.5, repeat BMP in AM. #15. DVT prophylaxis: SCDs, will hold on chemoprophylaxis until GI evaluation, if no endoscopy intention will add Lovenox cautiously given acute presentation #1 with low threshold to hold. #16. CODE status: Patient does not have healthcare power of director surface transportation nor living will in place but she notes that she is interested in setting these items up therefore referred her to case management/social work for help during her admission. She does report that this would be her brother. Discussed CODE status at length including difference between FULL code, DNR-CCA and DNR-CC status. Following discussions about the differences in these status, requested DNR-CCA, no intubation status. Advanced Care Planning Face to Face Time: 16 minutes.
[2021-09-20] MEDS: Ipratropium/Albuterol Sulfate 3 ML AMPUL.NEB INHALATION (07:25)
[2021-09-20 07:26] LABS: Absolute Lymphocyte Count 0.13 X10^3/uL (0.83-4.51); Absolute Neutrophil Count 0.7 X10^3/uL (2.0-7.7); Basophil# 0.02 X10^3/uL; Basophil% 2.1 % (0-1); Eosinophil# 0.01 X10^3/uL; Eosinophils% 1.1 % (0-5); Hematocrit 31.1 % (37-47); Hemoglobin 10.5 g/dL (12.0-15.0); Lymphocyte # 0.13 X10^3/ul (0.83-4.51); Lymphocyte % 13.7 % (19-41); Mean Corp Hgb Conc 33.8 g/dL (32-36); Mean Corpuscular Hgb 31.1 pg (27.0-32.0); Mean Platelet Vol. 10.8 fl (6.2-12.0); Monocyte# 0.07 X10^3/uL; Monocyte% 7.4 % (0-10); NRBC Flagged by Analyzer 0 % (0-5); Neutrophil % 73.6 % (47-70); POSITIVE COUNT YES; POSITIVE DIFFERENTIAL YES; Platelet Count 81 K/mm3 (150-450); RBC Distribution Width CV 13.1 % (11.6-14.6); RBC Distribution Width SD 42.9 fl (35.1-43.9); Red Blood Count 3.38 M/mm3 (4.2-5.4)
--- NOTE | 2021-09-20 07:26 | CON.PCM.GI_ITS ---
HPI Consult Data Date of Consult: 09/20/21 HPI Narrative HPI Narrative: STAN MCKINNEY, is a 71 F who presented to the ED with fatigue, weakness and diarrhea. She has a past medical history of non-small cell stage III lung cancer. She is currently undergoing chemotherapy and radiation. She also carries a past medical history of GRETEL, type 2 diabetes, obesity, rheumatoid arthritis, hypothyroidism. She had a colonoscopy and it showed diverticular disease with a couple polyps. Currently she is experiencing worsening esophageal dysphagia. She gets exter nal beam radiation on a daily basis except for the weekends. Most of her esophageal dysphagia is with liquids and solids. She has no history of gastroesophageal reflux disease. She had one episode of diarrhea this morning. She says she is going back and forth between diarrhea and constipation. She says that she denies any blood in her stool. She denies any nausea or vomiting. Her initial biochemical evaluation shows pancytopenia with an absolute neutrophil count of 0.9. She has not had any imaging of her abdomen or pelvis. [facility], [facility] Medical History Abdominal pain Ambulates with cane Anxiety Back pain Bladder disease Cancer Chills Cholelithiasis Cough CPAP (continuous positive airway pressure) dependence Dehydration Diabetes Diabetes mellitus, type II Dietary restriction DJD (degenerative joint disease) Easy bruising Encounter for education Fatty food intolerance Former smoker Gastric reflux Gout High cholesterol History of echocardiogram History of edema History of nephrolithiasis History of pain when walking Hyperlipidemia Hypertension Hypertension Hypomagnesemia Lactic acidosis Migraine headache Morbid obesity with BMI of 45.0-49.9, adult Rheumatoid arthritis Shortness of breath on exertion Sleep apnea Thyroid disease Wears glasses Home Medications gabapentin 300 mg PO QHS 03/04/14 [History Last Taken 04/03/14 22:00 100 mg] allopurinol 300 mg PO QHS 07/10/15 [History Last Taken Unknown] hydrochlorothiazide 25 mg PO DAILY 07/10/15 [History Last Taken Unknown] omeprazole 20 mg PO DAILY 07/10/15 [History Last Taken 08/17/21] albuterol sulfate 90 mcg/actuation aerosol inhaler 2 puff INHALATION Q6H PRN 08/16/19 [History Last Taken Unknown] cholecalciferol (vitamin D3) 1,250 mcg (50,000 unit) capsule 50,000 unit PO CANO #12 cap 08/16/19 [History Last Taken Unknown] losartan 100 mg tablet 100 mg PO DAILY 08/16/19 [History Last Taken 08/17/21] pravastatin 40 mg tablet 40 mg PO QHS #90 tab 08/16/19 [History Last Taken Unknown] levothyroxine 25 mcg capsule 25 mcg PO DAILY 10/22/19 [History Last Taken 08/17/21] dulaglutide 1.5 mg/0.5 mL subcutaneous pen injector 1.5 mg SUBCUT CANO 04/20/21 [History Last Taken Unknown] amlodipine 10 mg tablet 10 mg PO DAILY 08/05/21 [History Last Taken 08/17/21] glipizide 10 mg tablet 10 mg PO DAILY 08/05/21 [History Last Taken Unknown] linagliptin 5 mg tablet 5 mg PO DAILY 08/09/21 [History Last Taken Unknown] lidocaine-prilocaine 2.5 %-2.5 % topical cream 1 applic TOPICAL ONCE PRN 30 Days #30 g 08/16/21 [Rx Last Taken Unknown] ondansetron 4 mg disintegrating tablet 4 mg PO Q8H PRN #30 tab 08/16/21 [Rx Last Taken Unknown] insulin glargine 100 unit/mL (3 mL) subcutaneous pen 10 unit SUBCUT QPM 09/08/21 [History Last Taken Unknown] Allergy/AdvReac Type Severity Reaction Status Date / Time No Known Allergies Allergy Verified 09/19/21 12:31 Family History (Updated 09/19/21 @ 14:[address] Dalia Baac MD) Father Lung cancer Sister Breast cancer Mother Hypertension Other Heart disease Kidney disease Surgical History H/O tubal ligation History of cholecystectomy Hx of colonoscopy Social History adopted: No household members: none number of children: 3 current occupational status: retired Smoking Status: Former smoker Tobacco: How many years used: 2 alcohol intake: current alcohol intake frequency: 0-2 drinks per day substance use type: does not use what type of physical activity do you participate in: none additional social history: ROS Review of Systems ROS Unobtainable: other Constitutional Constitutional: Denies fatigue, fever(s), poor appetite, weight gain or weight loss ENT HEENT: Denies mouth lesions Cardiovascular Cardiovascular: Denies abdominal bloating, abdominal edema or abdominal pain Respiratory/Chest Respiratory/Chest: Denies change in mental status, change in phlegm color, chest congestion or chest tightness Gastrointestinal Gastrointestinal: Reports diarrhea, dysphagia, early satiety and loose stools; Denies dyspepsia, excessive flatus, fecal incontinence, heartburn, hematemesis, hematochezia or hemorrhoids Genitourinary Genitourinary: Denies abdominal discomfort, burning urination or itching Musculoskeletal Musculoskeletal: Reports as per HPI; Denies muscle weakness or myalgias Integumentary Integumentary: Denies jaundice Neurologic Neurologic: Denies lack of coordination or weakness Psychiatric Psychiatric: Denies confusion, depression, memory loss, mood swings, paranoia or suicidal ideation Endocrine Endocrinology: Denies systems reviewed and no addt'l complaints, except as documented Hematologic/Lymphatic Hematologic/Lymphatic: Denies anemia, easy bleeding, easy bruising or lymphadenopathy Allergic/Immunologic Allergic/Immunologic: Denies systems reviewed and no addt'l complaints, except as documented Physical Exam Const alert General Appearance: cooperative Orientation / Consciousness: oriented to person HEENT hearing grossly normal bilaterally Head and Scalp: normal to inspection Face and Sinus: face symmetric Nose: external nose normal Mouth: oral and palatal mucosa normal Eyes conjunctivae normal General Eye: normal appearance of both eyes Neck full ROM General: normal visual inspection Lymph Lymphatic: no lymphadenopathy noted Chest inspection of chest normal and palpation of chest normal Chest: symmetrical chest wall rise Resp normal respiratory effort Effort and Inspection: able to speak in complete sentences Cardio regular rate GI non-distended Percussion: normal to percussion Rectal Exam: deferred Neuro Speech: speech normal Gait (Neuro): normal gait Lab / Micro Data Result Diagrams: 09/19/21 13:08 09/19/21 13:08 Labs: Laboratory Results - last 24 hr 09/19/21 13:08: WBC 1.2 L*, RBC 3.75 L, Hgb 11.5 L, Hct 33.6 L, MCV 89.6, MCH 30.7, MCHC 34.2, RDW Std Deviation 42.8, RDW Coeff of Mahnaz 13.2, Plt Count 104 L, MPV 8.5, Immature Gran % (Auto) 1.600 H, Neut % (Auto) 70.8 H, Lymph % (Auto) 14.6 L, [place] % (Auto) 11.4 H, Eos % (Auto) 0.0, Baso % (Auto) 1.6 H, Absolute Neuts (auto) 0.9 L, Absolute Lymphs (auto) 0.18 L, Nucleated RBC % 0, Diff Path Review February09/19/21 13:08: Sodium 141, Potassium 4.1, Chloride 109 H, Carbon Dioxide 25.0, Anion Gap 7, BUN 25 H, Creatinine 1.35 H, Estim Creat Clear Calc 34.89, Est GFR (MDRD) Af Amer 50 L, Est GFR (MDRD) Non-Af 41 L, BUN/Creatinine Ratio 18.5, Glucose 200 H, Calcium 8.4 L, Total Bilirubin 0.90, AST 16, ALT 24, Alkaline Phosphatase 68, Troponin I High Sens 6, Total Protein 6.3 L, Albumin 3.1 L, Globulin 3.2, Albumin/Globulin Ratio 1.0 09/19/21 13:08: B-Natriuretic Peptide 24.1 09/19/21 13:08: Phosphorus 2.7, Magnesium 1.3 L 09/19/21 17:13: POC Glucose 141 H 09/19/21 21:08: POC Glucose 170 H 09/20/21 06:14: POC Glucose 134 H Micro: Microbiology 09/19/21 12:55 Nasal Secretion SARS-CoV-2 Antigen (Rapid) - Final Radiology Impression Chest X-Ray 09/19/21 13:25 IMPRESSION: No acute findings in the chest. at 1348 Reported and signed by: Osmani Lew MD Electronically Signed: Osmani Lew MD at 13:47 EST Tel , Service support , Assessment & Plan Assessment/Plan (1) Acute diarrhea: PLAN: The differential diagnosis for acute diarrhea would include infectious colitis. In the setting of recent chemotherapy also on the differential diagnosis would be neutropenic enterocolitis or typhlitis. On occasion if there is an underlying history of diarrhea you can increase the risk of inflammatory bowel disease. I will check fecal leukocytes as that would help determine if the etiology is from her colon or her small bowel. An infectious colitis you would see positive fecal leukocytes or positive fecal lactoferrin. She should be on a high-dose probiotic while undergoing chemotherapy and having diarrhea. I would not give any fiber supplements until it is determined that she does not have any infectious etiology to her diarrhea. (2) Odynophagia: PLAN: Differential diagnosis for her trouble swallowing would be radiation-induced injury. This is acute or subacute phase where she would get a denuded mucosa and ulcerations. Later in the disease or chronic aphasia can see stricturing disease of the esophagus due to external beam radiation. Also the differential diagnosis in the setting of leukocytosis she can get Milla e sophagitis or erosive esophagitis. She would likely need an upper endoscopy tomorrow. For now please prophylactically place her on fluconazole 100 mg a day x14 days and Protonix 40 mg twice a day. Thank you very much for allowing me to perspective care of this patient. Charges/Coding Visit Charges Inpatient E&M: 39265 Init Hosp L3
[2021-09-20 07:40] LABS: Differential Indicated SCAN CRITERIA MET
[2021-09-20 07:51] LABS: ALB/GLOB Ratio 0.9 RATIO (0.9-2.4); AST(SGOT) 19 U/L (15-37); Alanine Aminotransfer ALT/SGPT 23 U/L (13-56); Albumin, Serum 2.8 g/dL (3.2-5.0); Alkaline Phosphatase 67 U/L (45-117); Anion Gap 6 (5-15); BUN 21 mg/dL (7-18); BUN/Creat Ratio 19.1 RATIO (10-20); Calcium,Total 8.2 mg/dL (8.5-10.1); Chloride 111 mmol/L (98-107); EST Glomerular Filtration Rate 52 mL/min (>60); Est Glom Filt Rate - Afr Amer 63 mL/min (>60); Estimated Creatinine Clearance 42.82 ml/min; Globulin 3.2 g/dL (2.2-4.2); Glucose 134 mg/dL (74-106); Potassium 4.2 mmol/L (3.5-5.1); Sodium Level 140 mmol/L (136-145)
[2021-09-20 08:02] VITALS: PULSE 102; RESP 22
[2021-09-20 08:34] LABS: Platelet Estimate MOD DEC (ADEQ)
[2021-09-20 08:36] VITALS: BP 119/81; PULSE 115; RESP 18; TEMP 36.8; O2SAT 97
[2021-09-20 08:41] VITALS: RESP 18
[2021-09-20] MEDS: TBO-FILGRASTIM 480 MCG/0.8 ML ML SC (10:26)
[2021-09-20] MEDS: Sodium Chloride 0.65% 1 SPRAY SPRAY.BTL 2 SPRAY NASAL (10:27)
[2021-09-20] MEDS: Losartan Potassium 100 MG Tablet PO (10:29)
[2021-09-20] MEDS: amLODIPine 10 MG Tablet PO (10:30)
--- NOTE | 2021-09-20 11:30 | CASEMGMT ---
BRYANNA CM in to complete GONZALES form with patient. RN CM explained GONZALES form, patient voiced understanding. Patient signed GONZALES form and filed in chart. Patient provided with copy of signed GONZALES form. Patient states she has no concerns or needs at discharge. CM will continue to follow this patient and plan for a safe discharge.
[2021-09-20 11:35] LABS: Bedside Glucose 245 mg/dL (70-110)
[2021-09-20] MEDS: Insulin Lispro 100 UNIT/ML INSULN.PEN SC (12:06)
[2021-09-20] MEDS: Fluconazole 100 MG Tablet 400 MG PO (12:07)
--- NOTE | 2021-09-20 12:07 | DS.PCM_ITS ---
Providers Date of Admission: 09/19/21 Primary Care Physician: [facility] Consultations 09/19/21 16:32 Consult: Gastroenterology Routine Consulting Provider: [facility] Reason for Consult: NSLC patient, poor intake, suspect radiation esophagitits EMERGENT Consult: No MD Notified: Yes Date Notified: 09/19/21 Time Notified: 14:11 Method of Notification: cortext Consult: Oncology/Hematology Routine Consulting Provider: Wayne Rashid Reason for Consult: Suspected radiation esophagitis, intractable diarrhea (likely from chemo) EMERGENT Consult: No MD Notified: Yes Date Notified: 09/19/21 Time Notified: 14:10 Method of Notification: Text Reason For Visit: DYSPHAGIA, INTRACTABLE DIARRHEA Diagnosis Discharge Diagnosis (1) Acute diarrhea: Status: Acute Code(s): R19.7 - Diarrhea, unspecified (2) Odynophagia: Status: Acute Code(s): R13.10 - Dysphagia, unspecified Medications at Discharge Home Medications gabapentin 300 mg PO QHS 03/04/14 allopurinol 300 mg PO QHS 07/10/15 hydrochlorothiazide 25 mg PO DAILY 07/10/15 albuterol sulfate 90 mcg/actuation aerosol inhaler 2 puff INHALATION Q6H PRN 08/16/19 cholecalciferol (vitamin D3) 1,250 mcg (50,000 unit) capsule 50,000 unit PO CANO #12 cap 08/16/19 losartan 100 mg tablet 100 mg PO DAILY 08/16/19 pravastatin 40 mg tablet 40 mg PO QHS #90 tab 08/16/19 levothyroxine 25 mcg capsule 25 mcg PO DAILY 10/22/19 dulaglutide 1.5 mg/0.5 mL subcutaneous pen injector 1.5 mg SUBCUT CANO 04/20/21 amlodipine 10 mg tablet 10 mg PO DAILY 08/05/21 glipizide 10 mg tablet 10 mg PO DAILY 08/05/21 linagliptin 5 mg tablet 5 mg PO DAILY 08/09/21 lidocaine-prilocaine 2.5 %-2.5 % topical cream 1 applic TOPICAL ONCE PRN 30 Days #30 g 08/16/21 ondansetron 4 mg disintegrating tablet 4 mg PO Q8H PRN #30 tab 08/16/21 insulin glargine 100 unit/mL (3 mL) subcutaneous pen 10 unit SUBCUT QPM 09/08/21 acidophilus-pectin, citrus 1 tab PO BID 30 Days #60 tab 09/20/21 fluconazole [Diflucan] 200 mg PO DAILY 14 Days #14 tab 09/20/21 lidocaine HCl [Lidocaine Viscous] 5 ml PO Q3H PRN 30 Days #100 ml 09/20/21 loperamide 2 mg PO Q2H PRN PRN #30 cap 09/20/21 pantoprazole [Protonix] 40 mg PO BID #60 tab 09/20/21 Hospital Course Operations None Procedures EKG Summary of Care Provided Minutes Spent on Discharge: 35 Hospital Course: DISCHARGE NOTE: Discharge Diagnoses: #1. Intractable diarrhea, suspected secondary to recent chemotherapy, improved #2. Acute on chronic pancytopenia with underlying Non-small cell lung cancer on chemotherapy/radiation #3. Severe odynophagia suspected likely secondary to radiation esophagitis #4. Diabetes mellitus type II with neuropathy #5. Chronic COPD #6. Morbid Obesity #7. Hypertension #8. Hyperlipidemia #9. Anxiety and depression #10. Hypothyroidism #11. Former tobacco usage #12. GERD #13. GRETEL #14. Chronic Kidney Disease Stage III, unclear subtype Discharge Summary: The patient is a 71 y/o F w/ PMHx: CKD stage III unclear subtype, Morbid Obesity, GRETEL on CPAP, Anxiety and Depression, HTN, HLD, GERD, Diabetes mellitus type II, Rheumatoid arthritis, Hypothyroidism, Hx Migraines, Former Tobacco use, Chronic COPD, Non small cell lung cancer of chemotherapy and radiation following w/ Dr. Arguello with most recently chemotherapy the Monday prior (~5 days prior to current presentation) who presented to the [facility] ED on 09/19/21 with history of ongoing diarrhea at least 4 episodes daily with no abdominal cramping or pain associated since her chemotherapy which she has not had with her prior regimen with no recent antibiotic therapy in addition to significant severe reduction in oral intake per her report secondary to severe pain with any swallowing. Patient was admitted to medical surgical floor, judiciously hydrated, electrolytes repleted, patient diarrhea has significantly subsided with addition of loperamide regimen given suspected secondary to chemotherapy presentation, acute on chronic cytopenia secondary to chemotherapy with underlying non-small cell lung cancer with Granix x1 administered with continued recommendation for follow-up with oncology. Patient primary admission for severe odynophagia with suspected underlying radiation esophagitis with initiation of initially pur?ed foods, Protonix high-dose twice daily, viscous lidocaine as needed as well as avoidance of any acidic foods or caffeine which significantly improved her discomfort and nearly resolved it. Speech therapy was consulted and patient did successfully transition to moistened and minced foods. Gastroenterology was involved and following discussions with radiation oncologist EGD was deferred which initially been arranged with plan for treatment of possible esophageal candidiasis empirically with continue diet alterations. Patient was loaded with 400 mg Diflucan and continued on a 200 daily regimen x14 days with plan to follow-up with gastroenterology. Patient discharged to her planned outpatient radiation treatment given significant improvement, toleration of oral intake with planned arranged follow-up and treatment as noted. Discharge Time: > 35 Minutes DAY OF DISCHARGE PROGRESS NOTE: Subjective: Patient without acute event overnight per self and nursing report. Patient noted significant improvement with regimen and diet alterations. She did tolerate initial pur?ed diet and was evaluated by speech and transitioned without issue to moistened and minced with continued thin liquids. Patient denies fever, chills, nausea, emesis, abdominal pain, chest pain or dyspnea. Patient agreeable to discharge to home with transition prior to home to planned radiation per radiation oncologist request. Patient will be discharged with follow-up with primary care physician, continue follow-up with oncology with requested early visit as well as follow-up with gastroenterology. Objective: T 98.2, heart rate 110, BP 113/86, respiratory rate 18, 90% on room air Physical Examination: General: Awake, alert, oriented x 3 and cooperative, seated upright in the medical surgical bed, improved appearance, less fatigue, notes feeling improved with no odynophagia. Skin: Normal color, normal turgor, no icterus, no cyanosis. HEENT: AT/NC, EOMI, PERRLA, improved MMM, no evidence of any thrush or any oral lesions. Lungs: Mildly diminished, greater bases, distant likely secondary to habitus, moderate effort, no rales, ronchi or wheezing. Heart: Regular rate and rhythm; no gallop, rub audible. Abdomen: Soft, morbidly obese, NTTP, difficult to discern distention given habitus, improved normalized bowel sounds. Extremities: No cyanosis, no clubbing, mild bilateral ankle to distal abernathy not markedly pitting chronic edema. Neurological: Patient awake, alert, oriented as noted, cognitive function intact; pupils equally reactive to light and accommodation, cranial nerves II- XII grossly normal, moving all 4 extremities, no focal deficits, strength improving, mildly to moderately global decrease. Psychiatric: Affect appears improved, less fatigued, comfortable, no acute evidence of depressive or anxiety feelings. Assessment and Plan: Please see hospital summary above. Weight / BMI Weight Weight: 296 lb 15.402 oz Body Mass Index (BMI) 48.4 ABG / Lab / Microbiology Data Result Diagrams: 09/20/21 05:37 09/20/21 05:37 Laboratory: Laboratory Results - last 24 hr 09/19/21 13:08: WBC 1.2 L*, RBC 3.75 L, Hgb 11.5 L, Hct 33.6 L, MCV 89.6, MCH 30.7, MCHC 34.2, RDW Std Deviation 42.8, RDW Coeff of Mahnaz 13.2, Plt Count 104 L, MPV 8.5, Immature Gran % (Auto) 1.600 H, Neut % (Auto) 70.8 H, Lymph % (Auto) 14.6 L, [place] % (Auto) 11.4 H, Eos % (Auto) 0.0, Baso % (Auto) 1.6 H, Absolute Neuts (auto) 0.9 L, Absolute Lymphs (auto) 0.18 L, Nucleated RBC % 0, Diff Path Review February09/19/21 13:08: Sodium 141, Potassium 4.1, Chloride 109 H, Carbon Dioxide 25.0, Anion Gap 7, BUN 25 H, Creatinine 1.35 H, Estim Creat Clear Calc 34.89, Est GFR (MDRD) Af Amer 50 L, Est GFR (MDRD) Non-Af 41 L, BUN/Creatinine Ratio 18.5, Glucose 200 H, Calcium 8.4 L, Total Bilirubin 0.90, AST 16, ALT 24, Alkaline Phosphatase 68, Troponin I High Sens 6, Total Protein 6.3 L, Albumin 3.1 L, Globulin 3.2, Albumin/Globulin Ratio 1.0 09/19/21 13:08: B-Natriuretic Peptide 24.1 09/19/21 13:08: Phosphorus 2.7, Magnesium 1.3 L 09/19/21 17:13: POC Glucose 141 H 09/19/21 21:08: POC Glucose 170 H 09/20/21 05:37: WBC 1.0 L*, RBC 3.38 L, Hgb 10.5 L, Hct 31.1 L, MCV 92.0, MCH 31.1, MCHC 33.8, RDW Std Deviation 42.9, RDW Coeff of Mahnaz 13.1, Plt Count 81 L, MPV 10.8, Immature Gran % (Auto) 2.100 H, Neut % (Auto) 73.6 H, Lymph % (Auto) 13.7 L, [place] % (Auto) 7.4, Eos % (Auto) 1.1, Baso % (Auto) 2.1 H, Absolute Neuts (auto) 0.7 L, Absolute Lymphs (auto) 0.13 L, Nucleated RBC % 0, Differential Comment COMMENT, Diff Path Review February, Platelet Estimate MOD 09/20/21 05:37: Sodium 140, Potassium 4.2, Chloride 111 H, Carbon Dioxide 23.0, Anion Gap 6, BUN 21 H, Creatinine 1.10 H, Estim Creat Clear Calc 42.82, Est GFR (MDRD) Af Amer 63, Est GFR (MDRD) Non-Af 52 L, BUN/Creatinine Ratio 19.1, Glucose 134 H, Calcium 8.2 L, Total Bilirubin 0.90, AST 19, ALT 23, Alkaline Phosphatase 67, Total Protein 6.0 L, Albumin 2.8 L, Globulin 3.2, Albumin/Gl obulin Ratio 0.9 09/20/21 06:14: POC Glucose 134 H 09/20/21 11:34: POC Glucose 245 H Microbiology: Microbiology 09/19/21 12:55 Nasal Secretion SARS-CoV-2 Antigen (Rapid) - Final Radiography Diagnostic Testing: Radiology Impression Chest X-Ray 09/19/21 13:25 IMPRESSION: No acute findings in the chest. at 1348 Reported and signed by: Osmani Lew MD Electronically Signed: Osmani Lew MD at 13:47 EST Tel , Service support , D/C Instructions Discharge Diet: 1800 Calorie Control Diet (Diet texture moistened-minced and thin liquids per Speech recommendation.) Call your doctor if you observe: Fever of 101 or Higher, Numbness or Tingling, Shortness of breath, Dizziness and Chest pain Suture Line Care: - (Recurrent difficulty maintaining appropriate oral intake.) Meaningful Use Info Meaningful Use Diagnoses (Choose all that apply): None applicable Discharge Plan Admission Admit Date/Time: 09/19/21 13:59 Primary Reason for Your Visit: Odynophagia, Diarrhea secondary to chemotherapy Attending Provider: Dalia Baca Primary Care Provider: [facility] Consulting Providers: Wayne Rashid Instructions Additional Instructions / Restrictions: DISCHARGE INSTRUCTIONS: Please continue altered diet per speech therapy recommendations with continued moist minced texture as well as thin liquids. Please also use the viscous lidoc velasquez prior to meals to improve oral intake. Continue the high dose twice daily protonix in addition. Continue outpatient with speech therapy to continue to improve your intake and advance textures as able. Follow-up with Dr. Tirado, Gastroenterology and in the interim continue fluconazole for possible esophageal candidiasis to be cautious per Dr. Small recommendation. Please follow-up early with Dr. Arguello and have early repeat CBC. Given your diarrhea is associated with your chemotherapy, please take the loperamide as needed for diarrheal episodes. Discharge Orders/Prescriptions Prescriptions: New loperamide 2 mg Capsule 2 mg PO Q2H PRN PRN (Reason: chemotherapy associated diarrhea) Qty: 30 RF: 0 lidocaine HCl [Lidocaine Viscous] 2 % Solution 5 ml PO Q3H PRN (Reason: dysphagia) 30 Days Qty: 100 RF: 0 acidophilus-pectin, citrus 25 million cell -100 mg Tablet 1 tab PO BID 30 Days Qty: 60 RF: 0 fluconazole [Diflucan] 200 mg tablet 200 mg PO DAILY 14 Days Qty: 14 RF: 0 pantoprazole [Protonix] 40 mg tablet,delayed release (DR/EC) 40 mg PO BID Qty: 60 RF: 0 Continued cholecalciferol (vitamin D3) 50,000 unit capsule 50,000 unit PO CANO Qty: 12 RF: 0 losartan 100 mg tablet 100 mg PO DAILY RF: 0 pravastatin 40 mg tablet 40 mg PO QHS Qty: 90 RF: 0 albuterol sulfate [ProAir HFA] 90 mcg/actuation HFA aerosol inhaler 2 puff INHALATION Q6H PRN (Reason: SOB) RF: 0 levothyroxine 25 mcg capsule 25 mcg capsule 25 mcg PO DAILY RF: 0 Trulicity 1.5 mg/0.5 mL pen injector 1.5 mg subcut CANO RF: 0 glipizide 10 mg tablet 10 mg PO DAILY RF: 0 amlodipine 10 mg tablet 10 mg PO DAILY RF: 0 Tradjenta 5 mg tablet 5 mg PO DAILY RF: 0 lidocaine-prilocaine 2.5-2.5 % cream 1 applic topical ONCE PRN (Reason: port access) 30 Days Qty: 30 RF: 2 ondansetron 4 mg tablet,disintegrating 4 mg PO Q8H PRN (Reason: nausea and vomiting) Qty: 30 RF: 2 Basaglar KwikPen U-100 Insulin 100 unit/mL (3 mL) insulin pen 10 unit subcut QPM RF: 0 gabapentin 100 MG capsule 300 mg PO QHS RF: 0 allopurinol 300 MG tablet 300 mg PO QHS RF: 0 hydrochlorothiazide 25 MG tablet 25 mg PO DAILY RF: 0 Discontinued omeprazole 20 MG capsule 20 mg PO DAILY RF: 0 Referrals / Follow Up: Wayne Rashid MD [STAFF PHYSICIAN] - (Follow-up within 3-5 days to review admission. May see [employer].) Marcin Tirado DO [STAFF PHYSICIAN] - (Follow-up in 1-2 weeks.) Jose Small DO [NON-STAFF] - (Follow[facility]up as previously arranged.) [facility] - (Follow-up in 1 week to review admission.) Disposition Disposition (needs filled in before D/C Order can be placed): Home, Self Care Charges/Coding Visit Charges Inpatient E&M: 56370 Disch Hosp
[2021-09-20 12:39] VITALS: BP 113/86; PULSE 110; RESP 18; TEMP 36.8; O2SAT 98
--- NOTE | 2021-09-20 12:42 | CASEMGMT ---
Addendum entered by Zoraida Pittman 09/21/21 09:12: Late entry for 09/20/21 at 1325- Received message from radiology that pt is in waiting room. BRYANNA CASTRO walked to outpt [facility] to give outpt ST script. Pt had left, given to nurse Idalia who states she will give to pt tomorrow at radiation appt. Original Note: TC form requesting outpt ST scipt. Tubed and returned signed. BRYANNA CASTRO in to pt room, pt has left. TC to radiation, left message requesting call back to get the script to pt prior to leaving the hospital.
[2021-09-20 15:31] LABS: Pathologist Review Reviewed
[2021-09-20 21:56] LABS: Pathologist Review May foll
== END 2021-09-20 12:30 | disposition home or self-care (01) ==
LOC: ED 14:05 → MS3 14:21
PROVIDERS: Admitting Provider Family Medicine; Emergency Provider Emergency Medicine; Visit Provider Family Medicine
DX: K52.1 Toxic gastroenteritis and colitis (principal); T45.1X5A Adverse effect of antineoplastic and immunosuppressive drugs, initial encounter; E86.0 Dehydration; R11.2 Nausea with vomiting, unspecified; C34.91 Malignant neoplasm of unspecified part of right bronchus or lung; E11.40 Type 2 diabetes mellitus with diabetic neuropathy, unspecified; E11.22 Type 2 diabetes mellitus with diabetic chronic kidney disease; K21.9 Gastro-esophageal reflux disease without esophagitis; M10.9 Gout, unspecified; E78.5 Hyperlipidemia, unspecified; E03.9 Hypothyroidism, unspecified; N18.30 Chronic kidney disease, stage 3 unspecified; G47.33 Obstructive sleep apnea (adult) (pediatric); J44.9 Chronic obstructive pulmonary disease, unspecified; I12.9 Hypertensive chronic kidney disease with stage 1 through stage 4 chronic kidney disease, or unspecified chronic kidney disease; R13.14 Dysphagia, pharyngoesophageal phase; E66.01 Morbid (severe) obesity due to excess calories; D70.1 Agranulocytosis secondary to cancer chemotherapy; M06.9 Rheumatoid arthritis, unspecified; D61.818 Other pancytopenia; F41.9 Anxiety disorder, unspecified; F32.A Depression, unspecified; Z68.42 Body mass index [BMI] 45.0-49.9, adult; Z87.891 Personal history of nicotine dependence; Z79.899 Other long term (current) drug therapy; Z92.3 Personal history of irradiation; Z79.4 Long term (current) use of insulin; R06.2 Wheezing; R06.09 Other forms of dyspnea
CPT/HCPCS: 36415; 71045; 80053; 82962; 83735; 83880; 84100; 84484; 85025; 87426; 87493; 87506; 92610; 93005; 94640; 96361; 96365; 96366; 96372; 96375; 99218; 99251; 99285; J7030; J7050; A4216; G0378; G0463; J1447

== ENCOUNTER 2021-09-27 08:34 | Outpatient (RCR) | payer MEDICARE, MEDICAID, SELFPAY ==
--- NOTE | 2021-09-27 13:19 | HP.SP.AD_ITS ---
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 Mild pharyngoesophageal dysphagia. Will recommend the patient for minced and moist textures / thin liquids with distant supervision and the reflux and aspiration precautions noted below. Small bit es/small sips, slow rate, upright 90 degrees, remain upright 30-60 min after meals. Other Relevant Medical History/Diagnoses/Surgery: Teresita Latham is a 71-year-old female diagnosed with pathologic stage IIIA (T1c N2 M0) adenocarcinoma of the right lower lobe status post low-dose CT scan (05/03/2021), PET scan 06/29/2021), and EBUS and navigational bronchoscopy with multiple FNAs (07/28/2021). She is currently receiving chemoradiation therapy consisting of 6000 cGy delivered to the primary as well as right lower lobe tumor the hilum and mediastinal areas of disease concurrent with chemotherapy. Treatment Site: Right lung and mediastinum. Chemotherapy: weekly carbo/taxol. The patient was admitted to [facility] for diarrhea and odynophagia/dysphagia 09/19-09/20. Diarrhea r esolved, odynophagia and dysphagia improved some, oral intake is improved and weight stable. PMH also significant for abdominal pain, cough, DM Type II, former smoker, CPAP dependence, reflux, HTN, SEE chart for full PMH. The patient is suspected for esophageal dysphagia per Dr. Tirado, fellmongering machine operator. He determined differential diagnosis for her trouble swallowing to likely be radiation-induced injury. He recommended upper endoscopy. Dr. Tirado and Dr. Small, radiation oncologist, spoke and determined upper GI work up not necessary at this time. Dr. Tirado prophylactically place her on fluconazole 100 mg a day x14 days and Protonix 40 mg twice a day. Pt verbalized she has not been compliant with these medications. Smoking Status: Former smoker Hx Smoking: No - TEEN Hx Smoking Cessation Date: 10/23/1967 Hx Tobacco Use: No - Pain Is pain an issue with your current prescribed condition?: Yes - Personal Right Hearing Abillity: Normal Left Hearing Abillity: Normal Patients Living Arrangements: Alone Patient Allergies - Allergies Allergies No Known Allergies Allergy (Verified 09/23/21 09:04) Objective Oral Motor - Oral Status Dentition: WNL - Labial Impairment: WNL - Lingual Impairment: Mild Observation: Deviated Right Protrusion: Mild Retraction: WNL Lateralization: WNL - Jaw Impairment: WNL - Respiratory Status Respiratory Status: Room Air Subjective Dysphagia - Symptoms Reported Symptoms/Problems with: Difficulty Swallowing Solids, Food gets stuck - Current Diet Solids Current Diet: Soft - Current Diet Liquids Current Liquids: Thin Objective Dysphagia - Administered by Administered by: Self - Thin Liquids Administred via: Cup, Straw Symptoms: Couging Comments: Patient coughing at baseline. Cough following 2 sips by cup. Double swallow needed on a large sip. Hiccups after cup sips. Sips by straw with cough following 2 sips. - Pureed Symptoms: Couging Comments: Applesauce consumed with timely swallow, no overt s/s of aspiration. - Regular Symptoms: Couging Comments: Regular textured cookie consumed with prolonged but adequate mastication, delayed cough following 1 bite. - Results Swallowing Within Normal Limits: No Swallowing Diagnosis: Pharyngoesophageal Phase Dysphagia Severity: Moderate Dysphagia Assessment - Swallowing Impairment Contributing Factors to Swallowing Impairment: Reduced Laryngeal Excursion, Other Other: Radiation-induced dysphagia - Impact Impact on Safety & Functioning: Risk for Aspiration Comments: Will recommend the patient for minced and moist textures / thin liquids and small bites/small sips, slow rate, upright 90 degrees, remain upright 30-60 min after meals, small meals throughout the day. BROKERAGE BRANCH MANAGER spoke with Dr. Small regarding noncompliance with medications prescribed prophylactically by Dr. Tirado, as well as recommendation for MBS study. He recommended the patient wait 1 month to participate in study to provide time to heal from radiation. Will plan for MBS study in early October 2021. - Recommendations Modified Barium Swallow/Cookie Swallow Recommended: Yes - Diet Texture Recommendations Solids Other: Mechanical Soft Other Solid: Minced and Moist textures Liquids: Thin - Safety Saftey Precautions/Swallowing Recommendations (Check all that Apply): Upright Position at Least 30 Minutes After Meals, Small Sips & Bites when Eating Other: Upright during meals, slow rate of intake, smaller and more frequent meals throughout the day. FOIS - Functional Oral Intake Scale Total oral diet with multiple consistencies, but requiring special preparation or compensations: Level 5 SP Oncology PSS-HN - PSS-HN Test Normalcy of Diet: Soft chewable foods Scale Result:: 50 Public Eating: No restrictions of place, food or companions-eats out any opportunity Public eating scale: 100 Understandability of Speech: Always understandable Understandability of Speech Scale: 100 Plan - Plan Plan: Will recommend the patient participate in MBS study in one month (early October 2021) to allow for healing s/p radiation therapy (ending 10/01/21). The patient presents with pharyngoesophageal dysphagia. Will recommend the patient for skilled outpatient dysphagia therapy to provide the patient further education re: diet texture recommendations, aspiration precautions, and compensatory strategies to decrease risk for aspiration. Additionally, will provide ongoing assessment of diet tolerance post radiation treatment. Without skilled ST services, the patient is at risk for aspiration, weight loss, and malnutrition. - Recommendations MBS: Yes Treatment Warranted: Yes - Frequency Frequency: TBD after MBS study Duration: 12 Months - Prognosis Prognosis: Good - Goals that are Established: Determination:: Goals will be added/modified as deemed necessary and appropriate. Therapy will be discontinued when results of re-evaluation indicate therapy is no longer needed or lack of progress has been documented. - Goal #1-5 Goal #1: The patient will consume least restrictive diet textures without overt s/s of aspiration with 90% accuracy with minimal verbal cues for use of compensatory strategies to decrease risk for aspiration. Goal #2: The patient will participate in MBS study to objectively assess swallow function and provide recommendations for safest, least restrictive diet and compensatory strategies to reduce risk for aspiration. Education - Patient Instruction Patient Education: Diagnosis, Treatment Plan, Safety Precautions, Diet Level Other Education: Discussed impaired swallowing and increased risk for aspiration, aspiration related illnesses, weight loss, and malnutrition. Discussed importance for speech therapy to monitor and address dysphagia post radiation treatment to maintain optimal swallow function. Provided the patient a handout regarding minced and moist textures recommendation and preparation. Discussed strategies to decrease risk for aspiration. BROKERAGE BRANCH MANAGER spoke with pt via phone call after evaluation regarding plans to complete MBS study in October of 2021. Pt stated she feels comfortable with current diet recommendations and strategies. BROKERAGE BRANCH MANAGER requested pt schedule a follow-up session if she needs to review current recommendation and strategies. Pt agreeable. Person Taught: Patient Teaching Method: Discussion, Handout Response to teaching: Verbalize understanding
--- NOTE | 2022-04-04 10:21 | HP.SP.DC_ITS ---
ST Discharge Summary - Discharged: Discharge: The patient was evaluated for dysphagia with bedside swallow evaluation on 09/27/2021, recommending minced and moist textures / thin liquids with aspiration and reflux precautions. She participated in MBS study 10/25/2021, which recommended minced and moist textures / thin liquids and reflux and aspiration precautions. Per MBS study, she was also recommended for additional speech therapy to educate re: diet texture preparation, compensatory strategy use, aspiration/GERD precautions, and to instruct w/ oropharyngeal strengthening exercises to improve airway closure and reduce aspiration risk. The patient did not return for additional speech therapy sessions. [employer] called the patient but was unable to leave voicemail, as her voicemail box was full. Will discharge the patient at this time. Will recommend return to speech therapy if continued or increased difficulty swallowing, in order to prevent risk for aspiration, malnutrition, or weight loss.
== END 2021-09-27 19:00 | disposition home or self-care (01) ==
LOC: SP 08:34
PROVIDERS: Referring Provider Student in an Organized Health Care Education/Training Program; Visit Provider Student in an Organized Health Care Education/Training Program
DX: R13.10 Dysphagia, unspecified (principal)
CPT/HCPCS: 92610

== ENCOUNTER → 2021-10-20 12:14 | Outpatient (CLI) | payer MEDICARE, MEDICAID, SELFPAY ==
--- NOTE | 2021-10-20 12:45 | RAD_ITS ---
INDICATION: Cancer patient SOB EXAMINATION/TECHNIQUE: X-RAY - XR Chest 2 Views COMPARISON: 09/19/2021 FINDINGS: LINES/DEVICES: Right chest port visualizes catheter tip in the SVC. LUNGS: Peribronchial cuffing bilateral hilar prominence is seen, prominence of the bronchovascular interstitial lung markings is visualized bilaterally demonstrating no significant change in comparison to the prior study. No consolidation, edema or effusion. No pneumothorax. MEDIASTINUM AND CARDIOVASCULAR STRUCTURES: Cardiac silhouette not enlarged. Central airways and mediastinal contour are unremarkable. BONES AND SOFT TISSUES: Unremarkable. RAD/Chest PA and Lateral IMPRESSION: Peribronchial cuffing, bilateral hilar prominence and bronchovascular prominence demonstrate no change. Electronically Signed: Villa Pringle MD at 16:05 EST Tel , Service support ,
== END ==
PROVIDERS: Referring Provider Internal Medicine Critical Care Medicine; Visit Provider Internal Medicine Critical Care Medicine
DX: R05.9 Cough, unspecified (principal)
CPT/HCPCS: 71046

== ENCOUNTER 2021-10-25 12:17 | Outpatient (CLI) | payer MEDICARE, MEDICAID, SELFPAY ==
--- NOTE | 2021-10-25 13:48 | SP.MBSS_ITS ---
Modified Barium Swallow - Patient Information Study Date: 10/25/21 Study Time: 13:00 Direct Billable Minutes: 120 Total Minutes procedure & reportin Diagnosis: dysphagia Referring Physician: Jose Small Reason for Referral: MBS medically necessary to objectively assess pharyngoesophageal swallow function. Medical History: Teresita Latham is a 71-year-old female diagnosed with pathologic stage IIIA (T1c N2 M0) adenocarcinoma of the right lower lobe status post low-dose CT scan (05/03/2021), PET scan 06/29/2021), and EBUS and navigational bronchoscopy with multiple FNAs (07/28/2021). She is currently receiving chemoradiation therapy consisting of 6000 cGy delivered to the primary as well as right lower lobe tumor the hilum and mediastinal areas of disease concurrent with chemotherapy. Treatment Site: Right lung and mediastinum. Chemotherapy: weekly carbo/taxol. The patient was admitted to [facility] for diarrhea and odynophagia/dysphagia 09/19- 09/20. Diarrhea resolved, odynophagia and dysphagia improved some, oral intake is improved and weight stable. PMH also significant for abdominal pain, cough, DM Type II, former smoker, CPAP dependence, reflux, HTN, SEE chart for full PMH. The patient is suspected for esophageal dysphagia per Dr. Tirado, price accuracy supervisor. He determined differential diagnosis for her trouble swallowing to likely be radiation-induced injury. He recommended upper endoscopy. Dr. Tirado and Dr. Small, radiation oncologist, spoke and determined upper GI work up not necessary at this time. Dr. Tirado prophylactically place her on fluconazole 100 mg a day x14 days and Protonix 40 mg twice a day. Pt verbalized she has not been compliant with these medications. Current Diet Ordered: Minced & Moist Texture (IDDSI: 5)/Thin Liquid (IDDSI: 0) Swallowing Precautions/Strategies: distant supervision, small bites/small sips, slow rate, upright 90 degrees, remain upright 30-60 min after meals, GERD precautions Dentition: Natural Teeth, Missing Teeth Respiratory Status: Oxygenating on Room Air - marked dyspnea w/ exertion - Penetration-Aspiration Scale Penetration-Aspiration Scale: OBJECTIVE ASSESSMENT OF SWALLOW FUNCTION (QUANTITATIVE ? PER TRIAL): PENETRATION / ASPIRATION SCALE (PARADA): 1 = does not enter airway 2 = enters airway/above vocal folds/ejected 3 = enters airway/above vocal folds/not ejected 4 = enters airway/contacts vocal folds/ejected 5 = enters airway/contacts vocal folds/not ejected 6 = enters airway/below vocal folds/ejected 7 = enters airway/below vocal folds/not ejected despite effort 8 = enters airway/below vocal folds/no effort - Penetration-Aspiration Scale Score Thin Liquid via teaspoon Result: 1= does not enter airway Thin Liquid via teaspoon Trial 2 Result: 1= does not enter airway Thin Liquid via small single sip from cup Result: 1= does not enter airway Thin Liquid via sequential sips from cup Result: 3= enters airways/above vocal folds/not ejected - trace retention Pudding Result: 1= does not enter airway Pudding + esophageal clearance screening Result: 1= does not enter airway Cookie Result: 1= does not enter airway Thin Liquid via large single sip from cup Result: 3= enters airways/above vocal folds/not ejected - trace retention Thin Liquid via small single sip from cup Trial 2 Result: 2= enter airway/above vocal folds/ejected Thin Liquid via small single sip from straw Result: 1= does not enter airway Thin Liquid via large single sip from straw Result: 2= enter airway/above vocal folds/ejected [place] Thick Liquid via small single sip from cup Result: 1= does not enter airway - Oral Phase Labial Seal: No Labial Escape Tongue Control During Bolus Hold: Cohesive bolus between tongue to palatal seal Bolus Preparation/Mastication: Slow prolonged chewing/mashing with complete recollection Bolus Transport/Lingual Motion: Slowed tongue motion Oral Residue: Residue collection on oral structures - Pharyngeal Phase Initiation of Pharyngeal Swallow: Bolus head in pyriforms Soft Palate Elevation: No bolus between soft palate and pharyngeal wall Laryngeal Elevation: Partial superior movement thyroid cart/partial apprx aryt- epig petiole Anterior Hyoid Excursion: Partial anterior movement Epiglottic Movement: Complete inversion Laryngeal Vestibule Closure at Height of Swallow: Incomplete; narrow column of air/contrast in laryngeal vestibule Pharyngeal Stripping Wave: Present - complete Pharyngoesophageal Segment Opening: Complete distension and complete duration; no obstruction of flow Tongue Base Retraction: Trace column of contrast between tongue base & post. pharyngeal wall Pharyngeal Residue: Trace residue within or on pharyngeal structures - Esophageal Phase Esophageal Clearance: Complete clearance - Diagnosis/Impression Diagnosis: mild oropharyngeal dysphagia (R13.12) Impression: This patient's swallow function it characterized by: * slowed lingual motion for A-P bolus transportation * trace-mild oral residue retention resulting in post-prandial pharyngeal entry, cleared w/ double swallow * delayed pharyngeal swallow onset timing w/ spillage to the pyriforms prior to swallow onset * reduced closure of the airway during deglutition attributed to insufficient laryngeal elevation/anterior hyoid excursion, contributing to poor laryngeal vestibule closure w/ prandial laryngeal vestibule penetration of thin liquids * penetration was worse w/ larger volume and sequentially consumed liquid boluses * penetration was reduced and/or eliminated w/ smaller volume thin liquid boluses * severe epigastric discomfort was expressed by the patient throughout the study, although screening of esophageal clearance was unremarkable Diet Recommended: * Minced & Moist Texture (IDDSI: 5) * Thin Liquid (IDDSI: 0) Compensatory Strategies Recommended: * Small bites * Small sips, one sip at a time * Slow rate of intake * Alternate bites/sips or utilize a double swallow at reasonable intervals t/o meal * Sit upright w/ hip flexion at 90 degrees during PO intake * Remain seated upright for 30-60 minutes after PO intake (GERD precautions) Additional Speech Therapy Services Recommended: Yes * Additional therapy is necessary to educate re: diet texture preparation, compensatory strategy use, aspiration/GERD precautions, and to instruct w/ oropharyngeal strengthening exercises to improve airway closure and reduce aspiration risk. Without skilled ST services, the patient is at risk for aspiration, weight loss, and malnutrition. Education: * Images were reviewed w/ the patient following MBS conclusion. * Results and recommendations were discussed. * The Patient verbalized understanding and agreement with all recommendations and education provided, although will likely require ongoing re-education to increase complrehesnion and compliance. - Status Active ST Patient: Active - Contact Information [facility] Speech Therapy:: Jhoana Champion M.A., [facility] MANAGER [address] [place] [address] [phone] [email or web address]
== END 2021-10-25 23:59 | disposition home or self-care (01) ==
LOC: RAD 12:21
PROVIDERS: Referring Provider Student in an Organized Health Care Education/Training Program; Visit Provider Student in an Organized Health Care Education/Training Program
DX: R13.10 Dysphagia, unspecified (principal); K20.80 Other esophagitis without bleeding
CPT/HCPCS: 74230; 92611

== ENCOUNTER 2021-11-03 14:07 | Inpatient (IN) | payer MEDICARE, MEDICAID, SELFPAY ==
[2021-11-03] VITALS (11 sets, daily range): BP systolic 97–126; BP diastolic 49–77; PULSE 101–118; RESP 18–26; TEMP 36.1–37; O2SAT 92–98; BMI 45.9; BMI 45.3
--- NOTE | 2021-11-03 14:21 | EKG12_ITS ---
Test Reason : WEAKNESS Blood Pressure : / mmHG Vent. Rate : 111 BPM Atrial Rate : 111 BPM P-R Int : 132 ms QRS Dur : 104 ms QT Int : 362 ms P-R-T Axes : 039 011 009 degrees QTc Int : 492 ms Sinus tachycardia with Premature supraventricular complexes Otherwise normal ECG Confirmed by MARIANA HERNANDEZ, DA ([id number]), mapping editor DASHAWN DIAZ ([id number]) on 11/04/2021 1:39:57 PM Referred By: HCATO Confirmed By:GEMA PEÑA MD
--- NOTE | 2021-11-03 14:33 | EX.ED.DYSGE1 ---
HPI History of Present Illness Chief Complaint: Weakness Informant: patient Onset/Context/Timing Onset: Today Current Severity: Mild Maximum Severity: Mild Narrative Narrative: 71-year-old female history of diabetes, COPD, hypertension and lung cancer for which she has received chemo and radiation for the last 2 years. Today was in the office seeing her relief manager and says she was not feeling well he took her blood pressure read low and they sent her to the emergency department to be evaluated. She denies nausea, vomiting or diarrhea. She denies fever or chills. She denies any new cough. She has had chronic chest pain is not new. She denies any hemoptysis. No dysuria. No abdominal pain. Prior similar symptoms: Yes Recent Illness/Hospitalization: Yes PFSH PFS Medical History Abdominal pain Ambulates with cane Anxiety Back pain Bladder disease Cancer Chills Cholelithiasis Cough CPAP (continuous positive airway pressure) dependence Dehydration Diabetes Diabetes mellitus, type II Diarrhea Dietary restriction DJD (degenerative joint disease) Easy bruising Encounter for education Fatty food intolerance Former smoker Gastric reflux Gout High cholesterol History of echocardiogram History of edema History of nephrolithiasis History of pain when walking Hyperlipidemia Hypertension Hypertension Hypomagnesemia Lactic acidosis Leukopenia due to antineoplastic chemotherapy Migraine headache Morbid obesity with BMI of 45.0-49.9, adult Non-small cell cancer of right lung Odynophagia Odynophagia Rheumatoid arthritis Shortness of breath on exertion Sleep apnea Thyroid disease Wears glasses Home Medications gabapentin 300 mg PO QHS 03/04/14 [History Last Taken 04/03/14 22:00 100 mg] allopurinol 300 mg PO QHS 07/10/15 [History Last Taken Unknown] hydrochlorothiazide 25 mg PO DAILY 07/10/15 [History Last Taken Unknown] albuterol sulfate 90 mcg/actuation aerosol inhaler 2 puff INHALATION Q6H PRN 08/16/19 [History Last Taken Unknown] cholecalciferol (vitamin D3) 1,250 mcg (50,000 unit) capsule 50,000 unit PO CANO #12 cap 08/16/19 [History Last Taken Unknown] losartan 100 mg tablet 100 mg PO DAILY 08/16/19 [History Last Taken 08/17/21] pravastatin 40 mg tablet 40 mg PO QHS #90 tab 08/16/19 [History Last Taken Unknown] levothyroxine 25 mcg capsule 25 mcg PO DAILY 10/22/19 [History Last Taken 08/17/21] dulaglutide 1.5 mg/0.5 mL subcutaneous pen injector 1.5 mg SUBCUT CANO 04/20/21 [History Last Taken Unknown] amlodipine 10 mg tablet 10 mg PO DAILY 08/05/21 [History Last Taken 08/17/21] glipizide 10 mg tablet 10 mg PO DAILY 08/05/21 [History Last Taken Unknown] linagliptin 5 mg tablet 5 mg PO DAILY 08/09/21 [History Last Taken Unknown] lidocaine-prilocaine 2.5 %-2.5 % topical cream 1 applic TOPICAL ONCE PRN 30 Days #30 g 08/16/21 [Rx Last Taken Unknown] ondansetron 4 mg disintegrating tablet 4 mg PO Q8H PRN #30 tab 08/16/21 [Rx Last Taken Unknown] insulin glargine 100 unit/mL (3 mL) subcutaneous pen 10 unit SUBCUT QPM 09/08/21 [History Last Taken Unknown] acidophilus-pectin, citrus 1 tab PO BID 30 Days #60 tab 09/20/21 [Rx Last Taken Unknown] fluconazole [Diflucan] 200 mg PO DAILY 14 Days #14 tab 09/20/21 [Rx Last Taken Unknown] lidocaine HCl [Lidocaine Viscous] 5 ml PO Q3H PRN 30 Days #100 ml 09/20/21 [Rx Last Taken Unknown] loperamide 2 mg PO Q2H PRN PRN #30 cap 09/20/21 [Rx Last Taken Unknown] pantoprazole [Protonix] 40 mg PO BID #60 tab 09/20/21 [Rx Last Taken Unknown] MAGIC MOUTH WASH (BMX) 180 mL suspension 15 ml PO .qid PRN #300 ml 09/29/21 [Rx Last Taken Unknown] amoxicillin 875 mg-potassium clavulanate 125 mg tablet 1 tab PO BID #20 tab 11/03/21 [Rx Last Taken Unknown] prednisone 10 mg tablet 10 mg PO QDAY #30 tab 11/03/21 [Rx Last Taken Unknown] Allergy/AdvReac Type Severity Reaction Status Date / Time No Known Allergies Allergy Verified 11/03/21 14:11 Family History Father Lung cancer Sister Breast cancer Mother Hypertension Other Heart disease Kidney disease Surgical History H/O tubal ligation History of cholecystectomy Hx of colonoscopy Social History adopted: No household members: none number of children: 3 current occupational status: retired Smoking Status: Former smoker Tobacco: How many years used: 2 alcohol intake: current alcohol intake frequency: 0-2 drinks per day substance use type: does not use what type of physical activity do you participate in: none additional social history: ROS ROS ED ROS Narrative Weakness. Review of Systems ROS Unobtainable: Denies due to encephalopathy Constitutional Constitutional ED: Denies chills or fever(s) Eyes Eyes: Denies change in vision ENT ENT ED: Denies ear pain, rhinorrhea or sore throat Cardiovascular Cardiovascular: Reports chest pain Respiratory/Chest Respiratory/Chest: Denies cough, dyspnea or sputum Gastrointestinal Gastrointestinal: Denies abdominal pain, constipation, diarrhea, nausea or vomiting Genitourinary Genitourinary ED: Denies dysuria or hematuria Musculoskeletal Musculoskeletal: Denies arthralgias or myalgias Integumentary Denies abscess or rash Neurologic Neurologic: Denies headache(s) Psychiatric Psychiatric: Denies depression Endocrine Endocrinology: Denies polyuria Allergic/Immunologic Allergic/Immunologic ED: Denies urticaria EXAM Physical Exam Narrative Exam Narrative: 71-year-old female she is hypotensive blood pressure 97/53 with a heart rate of 118. Pulse ox 94% on room air no signs hypoxia. She is afebrile. She does not look septic or toxic. She does not look dehydrated. HEENT exam unremarkable. Moist mucous membranes. Neck nontender no JVD. No lymphadenopathy. Lungs clear to auscultation bilaterally. Heart tachycardic rate about 120 no murmur. Abdomen soft nontender normal bowel sounds no peritoneal signs. Patient moving all 4 extremities. Chronic lower extremity edema. Calves nontender without cords. Neurologically she is awake and alert with no focal motor deficits. Const Vital Signs: 11/03/21 14:08 11/03/21 14:10 11/03/21 15:03 Temperature 97.6 F L 97.6 F L Temperature Source Temporal Temporal Pulse Rate 118 H 118 H Respiratory Rate 20 H 20 H Respiratory Effort Respiratory Pattern Blood Pressure 97/53 L 97/53 L Blood Pressure Mean 67 67 Pulse Ox 94 94 98 Oxygen Delivery Method Room Air Room Air Room Air 11/03/21 15:08 11/03/21 16:12 Temperature 98.6 F Temperature Source Temporal Pulse Rate 109 H 106 H Respiratory Rate 24 H 24 H Respiratory Effort Normal Respiratory Pattern Normal Blood Pressure 111/69 126/54 H Blood Pressure Mean 83 78 Pulse Ox 98 97 Oxygen Delivery Method Room Air Room Air Positive well nourished, well developed and obese; Negative for cachectic, contractures or unkempt General Appearance ED: well developed and NAD; Negative for unkempt, cachectic, contractures, cyanotic, diaphoretic or pallor Nutritional Appearance: obese; Negative for cachectic HEENT Reports moist mucous membranes Negative for trauma or tenderness Eyes PERRL and EOMs intact bilaterally Neck no lymphadenopathy, supple and no JVD General: Negative for tenderness Chest Wall inspection of chest normal and palpation of chest normal Resp normal respiratory effort and clear to auscultation bilaterally Effort and Inspection: Negative for pain with movement Auscultation: Negative for rales, rhonchi or wheezes Cardio regular rhythm, S1 normal heart sound, S2 normal heart sound and no murmurs; Negative for regular rate Rate: tachycardic GI normal to inspection, nondistended, normoactive bowel sounds, non-tender, non-distended and no masses Auscultation: normoactive bowel sounds Palpation: soft; Negative for tender, guarding or rebound tenderness present Back/Spine no CVA tenderness General Back: Negative for CVA tenderness Cervical Spine: Negative for cervical spine tenderness Thoracic Spine / Upper Back: Negative for thoracic spinal tenderness Extremity normal to inspection Extremity Narrative: Chronic edema. General Extremety ED: Yes edema; Negative for tenderness General Extremity: edema Neuro oriented x3 Sensorium / Orientation: alert; Negative for orientation impaired, lethargic or stuporous Motor Exam: strength 5/5 throughout Psych mental status grossly normal Appearance: Negative for unkempt Mood & Affect: Negative for depressed or tearful Skin no rashes or lesions noted and no wounds General Skin Exam: Negative for jaundice or pallor MDM MDM MDM Narrative Medical decision making narrative: 71-year-old female history of lung cancer recently hospitalized. Presents with hypotension. Was not feeling well at her relief manager office and they sent her to the emergency department to be evaluated. Patient was treated IV fluids for her hypotension and undergo a septic work-up. Repeat exam at 4:08 PM she is doing well. She responded well to the saline bolus and currently is a pressure 126/54. She and I discussed all of her test results. She will be hospitalized for right-sided pneumonia of the upper and lower lobes. Also treated for potential sepsis. Patient will be started on IV Zosyn and vancomycin after the hospitalist and I discussed her admission. She will will be admitted to general medical floor at this time and given a second liter normal saline. Lab Data Attestation: I reviewed the patient's lab results. Lab results narrative: Rapid COVID antigen test negative. CBC unremarkable white count 12.1. Hemoglobin 13.2. Platelets 151. PT, INR and PTT normal. Electrolytes unremarkable gap of 5 BUN and creatinine at 39 and 1.77 consistent with dehydration. Liver enzymes normal. Lactic acid is elevated 2.2. Labs: Laboratory Results - last 24 hr 11/03/21 11/03/21 11/03/21 14:57 14:57 14:57 WBC 12.1 H RBC 3.94 L Hgb 13.2 Hct 39.7 MCV 100.8 H MCH 33.5 H MCHC 33.2 RDW Std Deviation 65.8 H RDW Coeff of Mahnaz 17.5 H Plt Count 151 MPV 10.9 Immature Gran % (Auto) 0.600 Neut % (Auto) 74.3 H Lymph % (Auto) 15.6 L Refugio % (Auto) 8.9 Eos % (Auto) 0.4 Baso % (Auto) 0.2 Absolute Neuts (auto) 9.0 H Absolute Lymphs (auto) 1.89 Nucleated RBC % 0 Differential Comment SCANNED PT 12.3 INR 1.0 APTT 26.8 Sodium 140 Potassium 3.8 Chloride 107 Carbon Dioxide 28.0 Anion Gap 5 BUN 39 H Creatinine 1.77 H Estim Creat Clear Calc 26.61 Est GFR (MDRD) Af Amer 36 L Est GFR (MDRD) Non-Af 30 L BUN/Creatinine Ratio 22.0 H Glucose 183 H Lactic Acid Calcium 9.6 Total Bilirubin 1.00 AST 16 ALT 25 Alkaline Phosphatase 92 Troponin I High Sens 13 Total Protein 6.7 Albumin 3.2 Globulin 3.5 Albumin/Globulin Ratio 0.9 11/03/21 14:57 WBC RBC Hgb Hct MCV MCH MCHC RDW Std Deviation RDW Coeff of Mahnaz Plt Count MPV Immature Gran % (Auto) Neut % (Auto) Lymph % (Auto) Refugio % (Auto) Eos % (Auto) Baso % (Auto) Absolute Neuts (auto) Absolute Lymphs (auto) Nucleated RBC % Differential Comment PT INR APTT Sodium Potassium Chloride Carbon Dioxide Anion Gap BUN Creatinine Estim Creat Clear Calc Est GFR (MDRD) Af Amer Est GFR (MDRD) Non-Af BUN/Creatinine Ratio Glucose Lactic Acid 2.2 H* Calcium Total Bilirubin AST ALT Alkaline Phosphatase Troponin I High Sens Total Protein Albumin Globulin Albumin/Globulin Ratio Radiography Chest X-Ray - ED: 1 View, Read by ED Physician, Heart, Mediastinum, Bony Structures, Right Infiltrate and Left Infiltrate Diagnostic Testing: Clinical Impression(s) from Imaging Studies Chest X-Ray 11/03/21 15:00 IMPRESSION: Patchy right upper lobe and right lower lobe pulmonary infiltrates. Electronically Signed: Cristino Medina MD at 15:15 EST , Service support , Chest x-ray, portable, single view, interpreted myself and radiologist is consistent with right upper and lower lobe infiltrates. This does appear to be change from prior. This will be treated as a potential pneumonia. Patient will be admitted. Rhythm Strip Rhythm Strip: Sinus Rhythm Rate: 88 Ectopy: None EKG Initial EKG: Attestation: I personally reviewed and interpreted this EKG as follows: Interpretation: Sinus Rhythm and No Acute Injury Pattern Comments: Normal sinus rhythm rate 88 no acute signs of SC nor ischemia. Critical Care Time Critical care time (excluding procedures): 30-74 minutes, Discussing w/Patient &/or Family/Search Analyst, Discussing w/Consultants, Arranging Admission or Transfer, Performing Direct Patient Care at Bedside and - (31 min) Discharge Plan Dx/Rx/DC Orders Clinical Impression: Pneumonia, Lactic acidosis, Sepsis, Acute hypotension, Lung cancer, Acute dehydration Disposition Disposition: [facility]
--- NOTE | 2021-11-03 15:00 | RAD_ITS ---
STUDY: X-RAY CHEST REASON FOR EXAM: Female, 71 years old. Cough TECHNIQUE: Single AP portable view of the chest. COMPARISON: Comparison is made with prior study dated 10/20/2021. FINDINGS: A right-sided portacatheter is seen. The tip is in the right atrium. There now is evidence of a patchy infiltrate in the right upper lobe as well as in the right lower. There is no demonstrated pleural abnormality. Normal size heart. Normal mediastinum and dragan. Normal visualized pulmonary arteries. Normal visualized aortic arch and descending thoracic aorta. There are diffuse degenerative changes of the visualized thoracic spine. There is degenerative osteoarthritis of the bilateral shoulders. There is no demonstrated abnormality of the visualized soft tissue structures of the upper abdomen. RAD/Chest 1 View (Portable) IMPRESSION: Patchy right upper lobe and right lower lobe pulmonary infiltrates. Electronically Signed: Cristino Medina MD at 15:15 EST , Service support ,
[2021-11-03 15:16] LABS: Absolute Lymphocyte Count 1.89 X10^3/uL (0.83-4.51); Basophil# 0.03 X10^3/uL; Basophil% 0.2 % (0-1); Eosinophil# 0.05 X10^3/uL; Eosinophils% 0.4 % (0-5); Hematocrit 39.7 % (37-47); Hemoglobin 13.2 g/dL (12.0-15.0); Lymphocyte # 1.89 X10^3/ul (0.83-4.51); Lymphocyte % 15.6 % (19-41); Mean Corp Hgb Conc 33.2 g/dL (32-36); Mean Corpuscular Hgb 33.5 pg (27.0-32.0); Mean Corpuscular Volume 100.8 fL (81-99); Mean Platelet Vol. 10.9 fl (6.2-12.0); Monocyte# 1.08 X10^3/uL; Monocyte% 8.9 % (0-10); NRBC Flagged by Analyzer 0 % (0-5); Neutrophil # 8.97 X10^3/uL (2.7-7.7); Neutrophil % 74.3 % (47-70); POSITIVE MORPHOLOGY YES; Platelet Count 151 K/mm3 (150-450); RBC Distribution Width CV 17.5 % (11.6-14.6); RBC Distribution Width SD 65.8 fl (35.1-43.9); Red Blood Count 3.94 M/mm3 (4.2-5.4); White Blood Count 12.1 K/mm3 (4.4-11.0)
[2021-11-03] MEDS: 0.9% Normal Saline 1,000 ML 999 ML IV ×2 (15:16→17:07)
[2021-11-03 15:26] LABS: Partial Thromboplast Time 26.8 Seconds (24.1-36.2); Prothrombin Time (Protime)PT. 12.3 SECONDS (11.7-14.9)
[2021-11-03 15:34] LABS: Differential Comment SCANNED; Differential Indicated SCAN CRITERIA MET
[2021-11-03 15:36] LABS: ALB/GLOB Ratio 0.9 RATIO (0.9-2.4); AST(SGOT) 16 U/L (15-37); Alanine Aminotransfer ALT/SGPT 25 U/L (13-56); Albumin, Serum 3.2 g/dL (3.2-5.0); Alkaline Phosphatase 92 U/L (45-117); Anion Gap 5 (5-15); BUN 39 mg/dL (7-18); Calcium,Total 9.6 mg/dL (8.5-10.1); Chloride 107 mmol/L (98-107); Creatinine, Serum 1.77 mg/dL (0.55-1.02); EST Glomerular Filtration Rate 30 mL/min (>60); Est Glom Filt Rate - Afr Amer 36 mL/min (>60); Estimated Creatinine Clearance 26.61 ml/min; Globulin 3.5 g/dL (2.2-4.2); Glucose 183 mg/dL (74-106); Potassium 3.8 mmol/L (3.5-5.1); Protein, Total 6.7 g/dL (6.4-8.2); Sodium Level 140 mmol/L (136-145); Troponin-I HS 13 pg/mL (3.0-54.0)
[2021-11-03 16:02] LABS: Lactic Acid 2.2 mmol/L (0.4-1.9)
--- NOTE | 2021-11-03 16:57 | NURSING ---
310 DAYSI PNEUMONIA, SEPSIS, HYPOTENSION, LUNG CA, ELEVATED LACTIC ACID
--- NOTE | 2021-11-03 16:58 | HP.PCM.HOS_ITS ---
[facility] - General General Date of Admission: 11/03/21 Date of Service: 11/03/21 Chief Complaint: Cough/shortness of breath HPI Narrative STAN MCKINNEY, is a 71 F who presented to the emergency department at [facility] on 11/03/2021 with a chief complaint of cough and shortness of breath. She had come right over from her pulmonary doctor's office, Dr. Ramachandran, as she had a follow-up visit there today. She is complaining of shortness of breath that is worse with exertion and worsens very quickly with any exertion, cough that has been nonproductive although she does feel that she is producing sputum up into the back of her throat but cannot clear it, wheezing, chest tightness and chills but denies any fevers, myalgias, nausea, vomiting, diarrhea, or tingling numbness or weakness. She is compliant with her home medications and has recently been evaluated for dysphagia and her diet has been altered to mechanical soft with thin liquids per modified barium swallow that was completed on 10/25/2020. She has been undergoing chemotherapy and radiation for stage IIIa non-small cell lung CA adenocarcinoma that was pres ent in the right lower lobe and completed chemotherapy on 09/23/2021. She has just completed radiation therapy this week and states that she is to follow-up with a CT of her chest on Monday and have follow-up discussions with her oncologist with regards to future planning. With regards to her shortness of breath she was given an aerosol treatment in the germination worker office and did have improved aeration and was initially placed on steroids and antibiotics but upon reevaluation was referred to the emergency department. In the emergency department she was afebrile and tachycardic with initial heart rate of 119 and improved to the lower 100s at 105 after fluid bolus. Her initial blood pressure was 97/53 but improved with 1 L normal saline to 107-126/54-77 upon repeat. She was tachypneic with respiratory rates from 20-24 but fortunately her oxygen saturations were stable on room air at 94 to 98%. The patient had a significant harsh rhonchorous sounding cough that was nonproductive upon my exam and was significantly wheezy throughout her lung campos. Her CBC showed a leukocytosis at 12.1. She had been leukopenic on her last lab of 10/07/2021 approximately 2 weeks after completing chemotherapy. Her hemoglobin was stable at 13.2 and her platelet count was 151. She did have a l eft shift. Her coagulation studies were normal. Her CMP showed normal electrolytes with an elevated serum BUN and creatinine at 39 and 1.77. Her baseline BUN appears to be in the low to mid 20s with a baseline serum creatinine of 1.2-1.4. Her blood sugar was elevated at 183 she is diabetic at baseline. Her LFTs were within normal limits. Her lactic acid was elevated at 2.2. A troponin was obtained and normal at 13. Chest x-ray was obtained and shows a patchy right upper lobe and right lower lobe infiltrate. Her EKG shows sinus tachycardia with a PVC but no ST-T wave changes consistent with ischemia. In the emergency department she was given 2 L of normal saline and vancomycin and Zosyn. Blood and urine cultures were obtained as well. Request for admission was made given her symptoms. [facility] Medical History Abdominal pain Ambulates with cane Anxiety Back pain Bladder disease Cancer Chills Cholelithiasis Cough CPAP (continuous positive airway pressure) dependence Dehydration Diabetes Diabetes mellitus, type II Diarrhea Dietary restriction DJD (degenerative joint disease) Easy bruising Encounter for education Fatty food intolerance Former smoker Gastric reflux Gout High cholesterol History of echocardiogram History of edema History of nephrolithiasis History of pain when walking Hyperlipidemia Hypertension Hypertension Hypomagnesemia Lactic acidosis Leukopenia due to antineoplastic chemotherapy Migraine headache Morbid obesity with BMI of 45.0-49.9, adult Non-small cell cancer of right lung Odynophagia Odynophagia Rheumatoid arthritis Shortness of breath on exertion Sleep apnea Thyroid disease Wears glasses Home Medications allopurinol 300 mg PO QHS 07/10/15 [History Last Taken 11/02/21] cholecalciferol (vitamin D3) 1,250 mcg (50,000 unit) capsule 50,000 unit PO CANO #12 cap 08/16/19 [History Last Taken 10/31/21] losartan 100 mg tablet 100 mg PO DAILY 08/16/19 [History Last Taken 11/02/21] pravastatin 40 mg tablet 40 mg PO QHS #90 tab 08/16/19 [History Last Taken 11/02/21] dulaglutide 1.5 mg/0.5 mL subcutaneous pen injector 1.5 mg SUBCUT CANO 04/20/21 [History Last Taken 10/31/21] amlodipine 10 mg tablet 10 mg PO DAILY 08/05/21 [History Last Taken 11/03/21] glipizide 10 mg tablet 10 mg PO DAILY 08/05/21 [History Last Taken 11/02/21] linagliptin 5 mg tablet 5 mg PO DAILY 08/09/21 [History Last Taken 11/03/21] lidocaine-prilocaine 2.5 %-2.5 % topical cream 1 applic TOPICAL ONCE PRN 30 Days #30 g 08/16/21 [Rx Last Taken Unknown] ondansetron 4 mg disintegrating tablet 4 mg PO Q8H PRN #30 tab 08/16/21 [Rx Last Taken 11/02/21] insulin glargine 100 unit/mL (3 mL) subcutaneous pen 14 unit SUBCUT QPM 09/08/21 [History Last Taken 11/02/21] lidocaine HCl [Lidocaine Viscous] 5 ml PO Q3H PRN 30 Days #100 ml 09/20/21 [Rx Last Taken Unknown] loperamide 2 mg PO Q2H PRN PRN #30 cap 09/20/21 [Rx Last Taken Unknown] amoxicillin-pot clavulanate 1 tab PO BID 11/03/21 [History Last Taken Unknown] furosemide 20 mg PO DAILY 11/03/21 [History Last Taken 11/03/21] levothyroxine 25 mcg PO DAILY 11/03/21 [History Last Taken 11/03/21] prednisone 10 mg PO QDAY 11/03/21 [History Last Taken Unknown] Allergy/AdvReac Type Severity Reaction Status Date / Time No Known Allergies Allergy Verified 11/03/21 14:11 Family History Father Lung cancer Sister Breast cancer Mother Hypertension Other Heart disease Kidney disease Surgical History H/O tubal ligation History of cholecystectomy Hx of colonoscopy Social History adopted: No household members: none number of children: 3 current occupational status: retired Smoking Status: Former smoker Tobacco: How many years used: 2 alcohol intake: current alcohol intake frequency: 0-2 drinks per day substance use type: does not use what type of physical activity do you participate in: none additional social history: ROS Constitutional Constitutional: Reports chills, malaise and weakness; Denies anorexia, change in weight, fatigue, fever(s), night sweats or other Eyes Eyes: Denies blurry vision, change in eye color, change in vision, discharge from eye(s), double vision, erythema, eye pain, loss of vision or other ENT HEENT: Denies abnormal hearing, dysphagia, ear pain, epistaxis, headache(s), he aring loss, nasal congestion, nasal discharge, post nasal drip, sinus pressure, sore throat or other Cardiovascular Cardiovascular: Reports dyspnea on exertion; Denies chest pain, claudication, edema, lightheadedness, orthopnea, palpitations, paroxysmal nocturnal dyspnea, rapid heart rate, syncope or other Respiratory/Chest Respiratory/Chest: Reports cough, dyspnea, shortness of breath at rest, shortness of breath with exertion and wheezing; Denies excessive phlegm production, hemoptysis, productive cough or other Gastrointestinal Gastrointestinal: Denies abdominal pain, coffee ground emesis, constipation, diarrhea, dyspepsia, hematemesis, hematochezia, loose stools, melena, nausea, vomiting or other Genitourinary Genitourinary: Denies burning urination, difficulty urinating, dysuria, hematuria, nocturia, urinary frequency, urinary hesitancy, urinary incontinence, urinary urgency or other Musculoskeletal Musculoskeletal: Denies arthralgias, back pain, joint pain, joint stiffness, joint swelling, myalgias, neck pain or other Neurologic Neurologic: Denies abnormal gait, abnormal speech, confusion, disequilibrium, dizziness, focal weakness, headache(s), numbness, paresthesias, seizure-like activity, seizures, syncope, tingling, tremor(s) or other Psychiatric Psychiatric: Denies anxiety, depression, homicidal ideation, suicidal ideation or other Endocrine Endocrinology: Denies change in body appearance, cold intolerance, excessive sweating, heat intolerance, polydipsia, polyuria or other Hematologic/Lymphatic Hematologic/Lymphatic: Denies anemia, easy bleeding, easy bruising, lymphadenopathy or other Allergic/Immunologic Allergic/Immunologic: Denies rhinitis, hives, eczemia, asthma or other Vital Signs Vital Signs Vital Signs: 11/03/21 14:08 11/03/21 14:10 11/03/21 15:03 Temperature 97.6 F L 97.6 F L Temperature Source Temporal Temporal Pulse Rate 118 H 118 H Respiratory Rate 20 H 20 H Respiratory Effort Respiratory Pattern Blood Pressure 97/53 L 97/53 L Blood Pressure Mean 67 67 Pulse Ox 94 94 98 Oxygen Delivery Method Room Air Room Air Room Air 11/03/21 15:08 11/03/21 16:12 Temperature 98.6 F Temperature Source Temporal Pulse Rate 109 H 106 H Respiratory Rate 24 H 24 H Respiratory Effort Normal Respiratory Pattern Normal Blood Pressure 111/69 126/54 H Blood Pressure Mean 83 78 Pulse Ox 98 97 Oxygen Delivery Method Room Air Room Air Weight Weight: 125.191 kg Body Mass Index (BMI) 45.9 Physical Exam Const alert, oriented x3 and well nourished Constitutional Narrative: Morbidly obese 71-year-old white female sitting up in bed, intermittent cough and audible wheeze without chest auscultation, appears ill but nontoxic, very pleasant General Appearance: cooperative HEENT normocephalic, head/scalp atraumatic and hearing grossly normal bilaterally HEENT Narrative: Mallampati 3, dentition is good, no thrush, mucous membranes are slightly dry but not parched Eyes PERRL, EOMs intact bilaterally and conjunctivae normal Eyes Narrative: No scleral icterus Neck no lymphadenopathy, supple, no JVD and no carotid bruits Neck Narrative: Trachea is midline without any thyroid enlargement, neck is short and thick Resp no retractions and no use of accessory muscles Resp Narrative: Tachypneic with diffuse scattered inspiratory and expiratory wheeze Auscultation: wheezes; Negative for crackles, rales or rhonchi Cardio regular rhythm, S2 normal heart sound, no murmurs, no rub, no gallops, no clicks and no JVD Cardio Narrative: Mildly tachycardic GI normal to inspection, nondistended, normoactive bowel sounds, soft to palpation, non-tender and non-distended Extremity no clubbing, cyanosis or edema Peripheral Pulses: Yes pulses 2+ throughout Skin no rashes or lesions noted, no wounds, skin turgor normal, no jaundice, no petechiae and no mottling Skin Narrative: Mediport right upper chest is clean and dry currently accessed with no surrounding erythema or drainage Neuro oriented x3, CN's II-XII intact bilaterally, moves all extremities and no focal motor deficits Neuro Narrative: Marked generalized weakness but no focal deficit Sensorium / Orientation: awake and alert Speech: speech normal Psych affect normal Psych Narrative: Very pleasant Results Lab / Micro Data Attestation: I reviewed the patient's lab results. Result Diagrams: 11/03/21 14:57 11/03/21 14:57 Labs: Laboratory Results - last 24 hr 11/03/21 14:57: WBC 12.1 H, RBC 3.94 L, Hgb 13.2, Hct 39.7, MCV 100.8 H, MCH 33.5 H, MCHC 33.2, RDW Std Deviation 65.8 H, RDW Coeff of Mahnaz 17.5 H, Plt Count 151, MPV 10.9, Immature Gran % (Auto) 0.600, Neut % (Auto) 74.3 H, Lymph % (Auto) 15.6 L, Hinds % (Auto) 8.9, Eos % (Auto) 0.4, Baso % (Auto) 0.2, Absolute Neuts (auto) 9.0 H, Absolute Lymphs (auto) 1.89, Nucleated RBC % 0, Differential Comment SCANNED 11/03/21 14:57: PT 12.3, INR 1.0, APTT 26.8 11/03/21 14:57: Sodium 140, Potassium 3.8, Chloride 107, Carbon Dioxide 28.0, Anion Gap 5, BUN 39 H, Creatinine 1.77 H, Estim Creat Clear Calc 26.61, Est GFR (MDRD) Af Amer 36 L, Est GFR (MDRD) Non-Af 30 L, BUN/Creatinine Ratio 22.0 H, Glucose 183 H, Calcium 9.6, Total Bilirubin 1.00, AST 16, ALT 25, Alkaline Phosphatase 92, Troponin I High Sens 13, Total Protein 6.7, Albumin 3.2, Globulin 3.5, Albumin/Globulin Ratio 0.9 11/03/21 14:57: Lactic Acid 2.2 H* Micro: Microbiology 11/03/21 15:18 Interface Orders SARS-CoV-2 Antigen (Rapid) - Final Rhythm Strip Rhythm Strip: Sinus Rhythm Rate: 88 Ectopy: None Radiology Impression Chest X-Ray 11/03/21 15:00 IMPRESSION: Patchy right upper lobe and right lower lobe pulmonary infiltrates. Electronically Signed: Cristino Medina MD at 15:15 EST , Service support , Assessment & Plan Assessment/Plan (1) Sepsis: (2) Pneumonia: (3) Acute hypotension: (4) Acute dehydration: (5) Dysphagia: (6) JANESSA (acute kidney injury): PLAN: Sepsis/severe sepsis secondary to suspected pneumonia -Patient received 2 L IV fluids in the emergency department -Meets sepsis criteria with an elevated respiratory rate, elevated white count, elevated heart rate, lactic acid elevation -Patient was dosed with 30 mg/kg of body weight of IV fluids -Repeat lactate at 2 hours from initial -Blood, urine, sputum cultures were ordered -We will initially use vancomycin and Zosyn given patient is immunocompromised and has recently been on chemotherapy -Check strep pneumo and Legionella antigens -Check flu and RSV swab -Rapid COVID is negative and patient is fully vaccinated but needing booster -We we will dose booster prior to discharge -Aggressive pulmonary toilet -I-S/Pep therapy -Mucinex -Antitussives as needed -If patient clinically worsens consider pulmonary consultation -Solu-Medrol 40 every 8 Acute hypotension -Improving with volume resuscitation -Continue to monitor serial blood pressures -Hold home hypertensives Lactic acidosis -Mild -Repeat at 2 hours from initial Acute dehydration/JANESSA -Baseline serum creatinine appears to be 1.2-1.4 -Current serum creatinine is 1.77 -Aggressive hydration -Hold Lasix -Avoid nephrotoxins -Repeat BMP in a.m. Dysphagia -Patient with recent modified barium swallow and diet recommended is mechanical soft with thin liquids -Likely related to radiation in the vicinity of the esophagus GRETEL -Continue CPAP at night with 13 cm of water Hypertension -Hold home antihypertensives given current borderline blood pressures and presentation with hypotension DM-2 -Hold home Trulicity and oral agents -Continue Lantus but at 15 units given steroid use -Need up titration -SSI -Accu-Cheks before meals and at bedtime Hyperlipidemia -Continue pravastatin Hypothyroidism -Continue home levothyroxine -Check TSH Vitamin D deficiency -Hold ergocalciferol until discharge and reinitiate at that time History of gout -Continue allopurinol 300 mg nightly Non-small cell lung CA/adenocarcinoma stage IIIa -Has undergone chemotherapy up until 12/04/2020 and just completed radiation -Repeat CT scan due on Monday -Follow-up with oncology and radiation oncology as directed Morbid obesity -BMI 45.9 -Recommend weight loss -Complicates overall treatment, prognosis, outcomes DVT prophylaxis -Heparin 3 times daily with JANESSA -SCDs CODE STATUS -Patient requests full code at this time--> she initially expressed the wish for me not to divulge this to her sons but I strongly encouraged her to have these conversations and explained that in the event that she was incapacitated given the fact that she is not currently decisions would default to them and it is important for them to know her wishes. She stated that she would have these conversations with them in the near future. Charges/Coding Visit Charges Inpatient E&M: 43904 Init Hosp L3
--- NOTE | 2021-11-03 18:59 | PCM.RX.CS ---
Consult Pharmacy has been consulted to manage selected antiobiotic: Vancomycin Type of Consult: New start Suspected Infection: Pneumonia Labs: Sodium 140 mmol/L (136-145) 11/03/21 14:57 Potassium 3.8 mmol/L (3.5-5.1) 11/03/21 14:57 Chloride 107 mmol/L (98-107) 11/03/21 14:57 Carbon Dioxide 28.0 mmol/L (21.0-32.0) 11/03/21 14:57 Anion Gap 5 (5-15) 11/03/21 14:57 BUN 39 mg/dL (7-18) H 11/03/21 14:57 Creatinine 1.77 mg/dL (0.55-1.02) H 11/03/21 14:57 Est GFR (MDRD) Af Amer 36 mL/min (>60) L 11/03/21 14:57 Est GFR (MDRD) Non-Af 30 mL/min (>60) L 11/03/21 14:57 BUN/Creatinine Ratio 22.0 RATIO (10-20) H 11/03/21 14:57 Glucose 183 mg/dL (74-106) H 11/03/21 14:57 Microbiology: Microbiology 11/03/21 15:18 Interface Orders SARS-CoV-2 Antigen (Rapid) - Final Goal Trough: 15-20 mcg/mL Pharmacy Plan for Drug Dosing: NEW START IV VANCOMYCIN Consulting Physician: Dr. Luz Marina Sanchez Indication: Pneumonia Goal Trough: 15-20 SrCr: 1.77 CrCl: 27 mL/min Comments: Had 2g IV x1 in ED 11/03/21 @1755 Vancomcyin Dose: 1250mg IV Q24hr to start 11/04/21 @1800 Pending Level: 11/05/21 @1730, prior to 3rd total dose per protocol Pharmacy Service will continue to monitor and adjust dosing as required.
[2021-11-03] MEDS: Ipratropium/Albuterol Sulfate 3 ML AMPUL.NEB INHALATION ×2 (19:03→22:35)
[2021-11-03 19:10] LABS: Reflex Lactate? Y
[2021-11-03 19:46] LABS: Lactic Acid 2.4 mmol/L (0.4-1.9)
[2021-11-03] MEDS: Lactated Ringers 1,000 ML 999 ML IV ×2 (19:53→21:33)
[2021-11-03 21:33] LABS: Mucous, Urine 0 SEEN /hpf (<or=2+)
[2021-11-03] MEDS: guaiFENesin 1,200 MG Tablet 1200 MG PO (21:37)
[2021-11-03] MEDS: Gabapentin 300 MG Capsule PO (21:37)
[2021-11-03] MEDS: Heparin Injection (Vial) 5,000 UNIT/ML VIAL 5000 UNIT SC (21:38)
[2021-11-03] MEDS: Pantoprazole Sodium 40 MG Tablet PO (21:38)
[2021-11-03] MEDS: Pravastatin 40 MG Tablet PO (21:38)
[2021-11-03] MEDS: Allopurinol 300 MG Tablet PO (21:38)
[2021-11-03 21:40] LABS: Color, Urine Yellow (Yellow); Glucose, Dipstick Normal (Normal); Ketone-Dipstick Negative (Negative); Leukocyte Esterase-Dipstick 500 /ul (Negative); Nitrite-Dipstick Positive (Negative); Occult Blood-Urine 50 /ul (Negative); Protein-Dipstick 30 mg/dl (Negative); Urine Bilirubin Dipstick Negative (Negative); Urine Clarity Cloudy (Clear); Urine Urobilinogen Normal (Normal)
[2021-11-03 21:47] LABS: White Blood Cells >100 SEEN /hpf (0-5)
[2021-11-03 21:48] LABS: Bacteria RARE /hpf (None Seen); Red Blood Cells-Urine 0-5 SEEN /hpf (0-5); Squamous Epithelial Cells - UA 5-10 SEEN /hpf (5-10)
[2021-11-03 21:55] LABS: Bedside Glucose 163 mg/dL (70-110)
[2021-11-03 21:57] LABS: M R Staph aureus DNA By PCR Negative (Negative); Probe Check PASS; Specimen Processing Control PASS
[2021-11-03] MEDS: 0.9% Normal Saline 1,000 ML 70 ML IV (22:22)
[2021-11-04] VITALS (12 sets, daily range): BP systolic 88–115; BP diastolic 48–71; PULSE 83–119; RESP 18–24; TEMP 36.4–36.6; O2SAT 94–100
[2021-11-04] MEDS: Ipratropium/Albuterol Sulfate 3 ML AMPUL.NEB INHALATION ×5 (04:08→21:13)
[2021-11-04] MEDS: Heparin Injection (Vial) 5,000 UNIT/ML VIAL 5000 UNIT SC ×3 (06:14→22:51)
[2021-11-04] MEDS: Levothyroxine 25 MCG TABLET PO (06:14)
[2021-11-04] MEDS: Insulin Lispro 100 UNIT/ML INSULN.PEN SC ×2 (06:18→12:05)
[2021-11-04 06:21] LABS: Bedside Glucose 334 mg/dL (70-110)
[2021-11-04 06:30] LABS: Absolute Lymphocyte Count 0.54 X10^3/uL (0.83-4.51); Absolute Neutrophil Count 6.8 X10^3/uL (2.0-7.7); Basophil# 0.01 X10^3/uL; Basophil% 0.1 % (0-1); Eosinophil# 0.01 X10^3/uL; Eosinophils% 0.1 % (0-5); Hematocrit 35.1 % (37-47); Hemoglobin 12.3 g/dL (12.0-15.0); Lymphocyte # 0.54 X10^3/ul (0.83-4.51); Lymphocyte % 7.2 % (19-41); Mean Platelet Vol. 11.1 fl (6.2-12.0); Monocyte# 0.11 X10^3/uL; Monocyte% 1.5 % (0-10); NRBC Flagged by Analyzer 0 % (0-5); Neutrophil # 6.83 X10^3/uL (2.7-7.7); Neutrophil % 90.4 % (47-70); POSITIVE DIFFERENTIAL YES; Platelet Count 127 K/mm3 (150-450); RBC Distribution Width CV 17.6 % (11.6-14.6); RBC Distribution Width SD 64.8 fl (35.1-43.9); Red Blood Count 3.51 M/mm3 (4.2-5.4); White Blood Count 7.6 K/mm3 (4.4-11.0)
[2021-11-04 06:42] LABS: Differential Indicated SCAN CRITERIA MET
[2021-11-04 07:05] LABS: Anisocytosis 2+
[2021-11-04 07:06] LABS: Anion Gap 11 (5-15); BUN 33 mg/dL (7-18); BUN/Creat Ratio 20.5 RATIO (10-20); Calcium,Total 8.7 mg/dL (8.5-10.1); Chloride 107 mmol/L (98-107); Creatinine, Serum 1.61 mg/dL (0.55-1.02); EST Glomerular Filtration Rate 34 mL/min (>60); Est Glom Filt Rate - Afr Amer 41 mL/min (>60); Estimated Creatinine Clearance 29.26 ml/min; Glucose 316 mg/dL (74-106); Potassium 4.9 mmol/L (3.5-5.1); Sodium Level 140 mmol/L (136-145); Thyroid Stim Hormone (TSH) 0.53 uIU/mL (0.358-3.74)
[2021-11-04] MEDS: guaiFENesin 1,200 MG Tablet 1200 MG PO ×2 (09:54→22:48)
[2021-11-04] MEDS: Fluconazole 100 MG Tablet 200 MG PO (09:54)
[2021-11-04] MEDS: Pantoprazole Sodium 40 MG Tablet PO ×2 (09:54→22:49)
[2021-11-04 12:05] LABS: Bedside Glucose 423 mg/dL (70-110)
--- NOTE | 2021-11-04 12:40 | CASEMGMT ---
BRYANNA CASTRO Face to Face with patient for initial transition planning/care coordination assessment. BRYANNA CASTRO introduced self and role at [facility]. Patient sitting in chair, alert and oriented. Patient willing to participate in assessment and is able to answer all questions appropriately. Care providers, pharmacy, and demographics verified. Patient wishes to discharge home, denies need for home health at this time. Patient states she has no further needs or concerns at this time. CM to follow for discharge planning needs that may arise. PCP: Petty Brizuela Specialists: Duarte, dean of women; Saundra, oncologist; Geovanny, radiologist Preferred Pharmacy: [facility] Insurance: [employer] Prescription Benefit: yes Living Will/HPOA: none LNOK: sons, brother Living Arrangements: Patient lives alone in a first floor apartment with one step to enter. Patient states she is independent at home. Transportation: self, [facility] van DME/HHC: Patient states she has walker, shower chair, and cpap at home. No previous HHC. BRYANNA CASTRO updated regarding referral for [facility]. Disposition Plan: Patient to discharge home with family support and follow-up plans in place. Jessica HANSON, RN, CM
--- NOTE | 2021-11-04 12:49 | NURSING ---
weaned pt off of her O2 since her SPO2 was at 100%. Will recheck her spo2 again at 2pm to make sure mainatined.
--- NOTE | 2021-11-04 14:57 | PN.HOSP_ITS ---
Subjective Subjective Patient seen and examined. She says she is feeling better today. She is still coughing. She is still coughing. She denies any fever or chills, nausea or vomiting. She admits to wheezing. Review of systems otherwise negative. Objective Data Objective Data Vital Signs: Vital Signs Temp Pulse Resp BP Pulse Ox 98 F 113 H 18 88/48 L 97 11/04/21 14:36 11/04/21 14:36 11/04/21 14:36 11/04/21 14:36 11/04/21 14:36 Oxygen Flow Rate (L/min) 2 Oxygen Delivery Method Room Air Weight: 276 lb 14.4 oz Body Mass Index (BMI) 45.3 Intake & Output: Intake and Output for Last 24 Hours 11/02/21 11/03/21 11/04/21 23:59 23:59 23:59 Intake Total 4640 / 4640 1550 / 1550 Balance 4640 / 4640 1550 / 1550 Lab / Micro Data Result Diagrams: 11/04/21 05:35 11/04/21 05:35 Labs: Laboratory Results - last 24 hr 11/03/21 14:57: WBC 12.1 H, RBC 3.94 L, Hgb 13.2, Hct 39.7, MCV 100.8 H, MCH 33.5 H, MCHC 33.2, RDW Std Deviation 65.8 H, RDW Coeff of Mahnaz 17.5 H, Plt Count 151, MPV 10.9, Immature Gran % (Auto) 0.600, Neut % (Auto) 74.3 H, Lymph % (A uto) 15.6 L, Winkler % (Auto) 8.9, Eos % (Auto) 0.4, Baso % (Auto) 0.2, Absolute Neuts (auto) 9.0 H, Absolute Lymphs (auto) 1.89, Nucleated RBC % 0, Differential Comment SCANNED 11/03/21 14:57: PT 12.3, INR 1.0, APTT 26.8 11/03/21 14:57: Sodium 140, Potassium 3.8, Chloride 107, Carbon Dioxide 28.0, Anion Gap 5, BUN 39 H, Creatinine 1.77 H, Estim Creat Clear Calc 26.61, Est GFR (MDRD) Af Amer 36 L, Est GFR (MDRD) Non-Af 30 L, BUN/Creatinine Ratio 22.0 H, Glucose 183 H, Calcium 9.6, Total Bilirubin 1.00, AST 16, ALT 25, Alkaline Phosphatase 92, Troponin I High Sens 13, Total Protein 6.7, Albumin 3.2, Globulin 3.5, Albumin/Globulin Ratio 0.9 11/03/21 14:57: Lactic Acid 2.2 H* 11/03/21 18:35: Lactic Acid 2.4 H* 11/03/21 18:50: MRSA (PCR) Negative 11/03/21 21:20: Urine Color Yellow, Urine Clarity Cloudy, Urine pH 5.0, Ur Specific Hessel 1.020, Urine Protein 30 H, Urine Glucose (UA) Normal, Urine Ketones Negative, Urine Occult Blood 50 H, Urine Nitrite Positive H, Urine Bilirubin Negative, Urine Urobilinogen Normal, Ur Leukocyte Esterase 500 H, Urine RBC 0-5 SEEN, Urine WBC >100 SEEN, Ur Squamous Epith Cells 5-10 SEEN, Urine Bacteria RARE, Urine Mucus 0 SEEN 11/03/21 21:48: POC Glucose 163 H 11/04/21 05:35: WBC 7.6, RBC 3.51 L, Hgb 12.3, Hct 35.1 L, MCV 100.0 H, MCH 35.0 H, MCHC 35.0 D, RDW Std Deviation 64.8 H, RDW Coeff of Mahnaz 17.6 H, Plt Count 127 L, MPV 11.1, Immature Gran % (Auto) 0.700, Neut % (Auto) 90.4 H, Lymph % (Auto) 7.2 L, Winkler % (Auto) 1.5, Eos % (Auto) 0.1, Baso % (Auto) 0.1, Absolute Neuts (auto) 6.8, Absolute Lymphs (auto) 0.54 L, Nucleated RBC % 0, Anisocytosis 2+ 11/04/21 05:35: Sodium 140, Potassium 4.9, Chloride 107, Carbon Dioxide 22.0, Anion Gap 11, BUN 33 H, Creatinine 1.61 H, Estim Creat Clear Calc 29.26, Est GFR (MDRD) Af Amer 41 L, Est GFR (MDRD) Non-Af 34 L, BUN/Creatinine Ratio 20.5 H, Glucose 316 H, Calcium 8.7, Phosphorus 4.0, Magnesium 2.0, TSH 0.53 01/13/22 06:13: POC Glucose 334 H 11/04/21 12:00: POC Glucose 423 H Micro: Microbiology 11/03/21 19:51 Sputum, Expectorated/Coughed Gram Stain - Final 11/03/21 21:20 Urine, Clean Catch Legionella Antigen - Final 11/03/21 21:20 Urine, Clean Catch Streptococcus pneumoniae Antigen (M - Final 11/03/21 18:30 Mucosa - Nose Rapid RSV (DFA) - Final 11/03/21 18:30 Mucosa - Nasopharyngeal Influenza Types A,B Direct FA (JUAN) - Final 11/03/21 15:18 Interface Orders SARS-CoV-2 Antigen (Rapid) - Final Radiography Diagnostic Testing: Radiology Impression Chest X-Ray 11/03/21 15:00 IMPRESSION: Patchy right upper lobe and right lower lobe pulmonary infiltrates. Electronically Signed: Cristino Medina MD at 15:15 EST , Service support , Rhythm Strip Rhythm Strip: Sinus Rhythm Rate: 88 Ectopy: None Physical Exam Const alert, oriented x3 and no apparent distress Exam Limitations: no limitations Nutritional Appearance: morbidly obese HEENT head/scalp atraumatic and moist oral mucous membranes Head and Scalp: normocephalic Eyes PERRL, EOMs intact bilaterally and conjunctivae normal Neck no lymphadenopathy, supple and no JVD Resp Resp Narrative: diminished breath sounds bibasally, mild wheezing in all lung campos. On room air. Cardio S1 normal heart sound, S2 normal heart sound and no murmurs Cardio Narrative: tachycardic, GI normal to inspection, nondistended, normoactive bowel sounds, soft to palpation, non-tender and non-distended Extremity normal to inspection, full ROM and no clubbing, cyanosis or edema Peripheral Pulses: Yes pulses 2+ throughout Skin no rashes or lesions noted and no wounds Skin Narrative: has chemo port in place Neuro oriented x3, CN's II-XII intact bilaterally and moves all extremities Sensorium / Orientation: awake and alert Psych affect normal Assessment & Plan Assessment/Plan (1) JANESSA (acute kidney injury): PLAN: #Sepsis due to community acquired pneumonia * Patient is feeling better today. She was however noted to be hypotensive and tachycardic later today. * Blood and sputum cultures pending. On IV vancomycin and Zosyn. * Urine for strep and Legionella were negative. Flu and RSV swab are pending. * COVID test negative. Patient fully vaccinated. * Breathing treatments bronchodilators. On IV Solu-Medrol 40 mg every 8 hours. * Titrate oxygen as needed to maintain saturation above 90%. * On Mucinex. * #Hypotension: Patient again hypotensive today. Continue hydration with IV fluids. Home BP meds on hold. #?UTI: urine showed >100 wbcs. On IV zosyn which should cover UTI. Urine culture pending #JANESSA due to dehydration: * Lasix on hold. Patient being hydrated with IV fluids. * Will monitor. * CR is down slightly to 1.61. #Dysphagia: Recently had a modified barium swallow and is on mechanical soft with thin liquids. #Non-small cell lung cancer: * S/p chemo therapy and also just completed radiation. * To follow-up with oncology on outpatient basis. * Due for repeat CT scan on Monday. * #GRETEL: On CPAP nightly #Hypertension: BP meds on hold on account of hypotension #Type 2 diabetes mellitus: On Lantus. Insulin sliding scale. Checks AC at bedtime. Trulicity and oral meds on hold #Hyperlipidemia: On statin #Hypothyroidism: On Synthroid. #Morbid obesity: BMI is 45.9. Complicates acute care, expected recovery and prognosis CODE STATUS: Full code #History of gout: On allopurinol DVT prophylaxis: on heparin Charges/Coding Visit Charges Inpatient E&M: 75087 Subs Hosp L3
--- NOTE | 2021-11-04 15:20 | CASEMGMT ---
Social Work SW met w/pt, educated her on [employer]. Pt agreeable to SW completing referral form. SW completed form and faxed to [facility]. We also spoke about home delivered meals. SW provided information to pt on Meals on Wheels, [employer] and [employer]. No further social service needs anticipated at this time. QUINCY Chneey
[2021-11-04] MEDS: 0.9% Normal Saline 1,000 ML 125 ML IV ×2 (15:27→23:32)
--- NOTE | 2021-11-04 16:32 | CHAPLAIN ---
Type of Pastoral Visit _x__ Initial Visit ___ Follow-up Visit ___ On-call Visit ___ General Patient Visit ___ Spiritual Assessment ___ Family Conference ___ Bereavement ___ Rapid Response ___ Code Blue ___ Other (describe below) Pastoral Care Referral From _x__ Patient ___ Family ___ Nurse ___ Physician ___ Weir Fisher ___ Physiotherapy Practice Manager ___ Other (describe below) Sacrament/Intervention _x__ Active listening ___ Anointing ___ Scientology ___ Bereavement ___ Communion ___ Camille exploration ___ _x__ Life review _x__ Prayer ___ Reconciliation ___ Sacrament of Sick _x__ Supportive presence ___ Wedding ___ Other (describe below) Pastoral Comments patient describes her situation in health and the new development of sob; pt admits to some concern about her health and future; pt identifies her family support; prayer is welcomed
[2021-11-04] MEDS: Insulin Lispro 100 UNIT/ML INSULN.PEN 18 UNIT SC (17:24)
[2021-11-04 21:41] LABS: Bedside Glucose 458 mg/dL (70-110)
[2021-11-04 22:28] LABS: Glucose 498 mg/dL (74-106)
[2021-11-04] MEDS: Insulin Lispro 100 UNIT/ML INSULN.PEN 20 UNIT SC (22:44)
[2021-11-04] MEDS: MELATONIN 10 MG TABLET 5 MG PO (22:46)
[2021-11-04] MEDS: Gabapentin 300 MG Capsule PO (22:48)
[2021-11-04] MEDS: Pravastatin 40 MG Tablet PO (22:48)
[2021-11-04] MEDS: Allopurinol 300 MG Tablet PO (23:35)
[2021-11-05] VITALS (7 sets, daily range): BP systolic 105–120; BP diastolic 55–74; PULSE 79–118; RESP 18–20; TEMP 36.4–36.5; O2SAT 92–100
[2021-11-05 06:04] LABS: Absolute Lymphocyte Count 0.35 X10^3/uL (0.83-4.51); Absolute Neutrophil Count 13.9 X10^3/uL (2.0-7.7); Basophil# 0.02 X10^3/uL; Basophil% 0.1 % (0-1); Hematocrit 33.6 % (37-47); Hemoglobin 11.2 g/dL (12.0-15.0); Lymphocyte # 0.35 X10^3/ul (0.83-4.51); Lymphocyte % 2.4 % (19-41); Mean Corp Hgb Conc 33.3 g/dL (32-36); Mean Corpuscular Hgb 33.8 pg (27.0-32.0); Mean Corpuscular Volume 101.5 fL (81-99); Mean Platelet Vol. 10.7 fl (6.2-12.0); Monocyte# 0.36 X10^3/uL; Monocyte% 2.4 % (0-10); NRBC Flagged by Analyzer 0 % (0-5); Neutrophil # 13.89 X10^3/uL (2.7-7.7); Neutrophil % 94.2 % (47-70); POSITIVE DIFFERENTIAL YES; Platelet Count 122 K/mm3 (150-450); RBC Distribution Width CV 16.9 % (11.6-14.6); RBC Distribution Width SD 63.6 fl (35.1-43.9); Red Blood Count 3.31 M/mm3 (4.2-5.4); White Blood Count 14.8 K/mm3 (4.4-11.0)
[2021-11-05 06:07] LABS: Differential Indicated SCAN CRITERIA MET
[2021-11-05] MEDS: Heparin Injection (Vial) 5,000 UNIT/ML VIAL 5000 UNIT SC (06:15)
[2021-11-05] MEDS: Insulin Lispro 100 UNIT/ML INSULN.PEN SC ×2 (06:18→10:59)
[2021-11-05] MEDS: Levothyroxine 25 MCG TABLET PO (06:19)
[2021-11-05 06:24] LABS: Anion Gap 5 (5-15); BUN 34 mg/dL (7-18); BUN/Creat Ratio 20.2 RATIO (10-20); Calcium,Total 9.1 mg/dL (8.5-10.1); Chloride 109 mmol/L (98-107); Creatinine, Serum 1.68 mg/dL (0.55-1.02); EST Glomerular Filtration Rate 32 mL/min (>60); Est Glom Filt Rate - Afr Amer 39 mL/min (>60); Estimated Creatinine Clearance 28.04 ml/min; Glucose 353 mg/dL (74-106); Potassium 4.5 mmol/L (3.5-5.1); Sodium Level 136 mmol/L (136-145)
[2021-11-05 06:35] LABS: Bedside Glucose 306 mg/dL (70-110)
[2021-11-05 06:42] LABS: Anisocytosis 2+
[2021-11-05] MEDS: Ipratropium/Albuterol Sulfate 3 ML AMPUL.NEB INHALATION ×2 (07:13→12:08)
[2021-11-05 07:20] LABS: Bedside Glucose 485 mg/dL (70-110)
[2021-11-05 07:20] LABS: Bedside Glucose 476 mg/dL (70-110)
[2021-11-05] MEDS: Pantoprazole Sodium 40 MG Tablet PO (09:17)
[2021-11-05] MEDS: Fluconazole 100 MG Tablet 200 MG PO (09:17)
[2021-11-05] MEDS: guaiFENesin 1,200 MG Tablet 1200 MG PO (09:17)
[2021-11-05 11:10] LABS: Bedside Glucose 397 mg/dL (70-110)
--- NOTE | 2021-11-05 11:49 | PCM.DC.SUM ---
Providers Date of Admission: 11/03/21 Primary Care Physician: [facility] Reason For Visit: PNEUMONIA Diagnosis Discharge Diagnosis (1) JANESSA (acute kidney injury): Status: Acute Code(s): N17.9 - Acute kidney failure, unspecified Medications at Discharge Home Medications allopurinol 300 mg PO QHS 07/10/15 cholecalciferol (vitamin D3) 1,250 mcg (50,000 unit) capsule 50,000 unit PO CANO #12 cap 08/16/19 losartan 100 mg tablet 100 mg PO DAILY 08/16/19 pravastatin 40 mg tablet 40 mg PO QHS #90 tab 08/16/19 dulaglutide 1.5 mg/0.5 mL subcutaneous pen injector 1.5 mg SUBCUT CANO 04/20/21 amlodipine 10 mg tablet 10 mg PO DAILY 08/05/21 glipizide 10 mg tablet 10 mg PO DAILY 08/05/21 linagliptin 5 mg tablet 5 mg PO DAILY 08/09/21 lidocaine-prilocaine 2.5 %-2.5 % topical cream 1 applic TOPICAL ONCE PRN 30 Days #30 g 08/16/21 ondansetron 4 mg disintegrating tablet 4 mg PO Q8H PRN #30 tab 08/16/21 insulin glargine 100 unit/mL (3 mL) subcutaneous pen 14 unit SUBCUT QPM 09/08/21 lidocaine HCl [Lidocaine Viscous] 5 ml PO Q3H PRN 30 Days #100 ml 09/20/21 loperamide 2 mg PO Q2H PRN PRN #30 cap 09/20/21 furosemide 20 mg PO DAILY 11/03/21 levothyroxine 25 mcg PO DAILY 11/03/21 prednisone 10 mg PO QDAY 11/03/21 levofloxacin 250 mg PO DAILY #7 tab 11/05/21 prednisone 40 mg PO DAILY #10 tab 11/05/21 Hospital Course Operations None Procedures None Summary of Care Provided Minutes Spent on Discharge: 45 Hospital Course: Patient is a 79-year-old female with a past medical history as outlined which includes non-small cell lung cancer for which she follows up with her pattern chart writer was admitted through the ED on 11/03/2021 with a complaint of cough and shortness of breath. Patient had seen her pattern chart writer on the day of admission. After she left his office, she became more short of breath which worsened with exertion and also had a cough as well as chest tightness and chills but denied any fever, nausea or vomiting or diarrhea. She said he had recently been evaluated for dysphagia and her diet has been altered mechanical soft with thin liquids. Modified barium swallow done on 10/25/2020. Patient has been undergoing chemotherapy and radiation. On admission she was found to be tachycardic. CBC showed leukocytes of 12.1. Chest x-ray showed a patchy right upper lobe and right lower lobe infiltrate. She was admitted and managed for sepsis due to community-acquired pneumonia and started on IV vancomycin and Zosyn. Blood cultures and urine cultures were obtained. She was also placed on IV Solu-Medrol as patient was wheezing. COVID test that was negative blood culture showed no growth after 48 hours. Influenza and RSV screens were also negative. Urine for strep and Legionella were negative. Sputum Gram stain showed 1+ gram-positive cocci and 1+ gram-positive rods as well as 1+ gram-negative rods. Sputum culture however showed mixed normal respiratory miriam. Urine culture was positive for E. coli with less than thousand colony-forming units per mL. Patient's shortness of breath gradually improved and she felt much better. She had a walking pulse ox on 11/05/2021 which showed that she did not require any home oxygen. She remained stable and was discharged home on 11/05/2021 on p.o. Levaquin 250 mg daily for 7 days. She was also discharged on p.o. prednisone 40 mg daily for 5 days. She is to follow-up with her primary care doctor and pattern chart writer in 1 to 2 weeks. Patient seen and examined prior to discharge. She says she felt much better and wanted to go home. Shortness of breath that improved markedly. Review of symptoms otherwise negative. Labs and vitals reviewed. Home medication reviewed and reconciled. Physical Exam Const alert, oriented x3, no apparent distress and well nourished General Appearance: cooperative, comfortable and well kempt Exam Limitations: no limitations Nutritional Appearance: morbidly obese HEENT normocephalic, head/scalp atraumatic, hearing grossly normal bilaterally and moist oral mucous membranes Eyes PERRL, EOMs intact bilaterally and conjunctivae normal Neck no lymphadenopathy, supple, no JVD and no carotid bruits Neck Narrative: T Resp Resp Narrative: diminished breath sounds bibasally, mild wheezing in all lung campos. On room air. Mild wheezing. Auscultation: Negative for crackles, rales or rhonchi Cardio regular rhythm, S1 normal heart sound, S2 normal heart sound, no murmurs, no rub, no gallops, no clicks and no JVD Cardio Narrative: mildly tachycardic, GI normal to inspection, nondistended, normoactive bowel sounds, soft to palpation, non-tender and non-distended Extremity normal to inspection, full ROM and no clubbing, cyanosis or edema Skin no rashes or lesions noted, no wounds, skin turgor normal, no jaundice, no petechiae and no mottling Skin Narrative: has chemo port in place Neuro oriented x3, CN's II-XII intact bilaterally, moves all extremities and no focal motor deficits Sensorium / Orientation: awake and alert Speech: speech normal Psych affect normal Medical Records Data Medical Nutrition Assessment Dietitian: Malnutrition Criteria Met Start: 11/04/21 15:00 Freq: Status: Active Protocol: Document 11/04/21 15:00 (Rec: 11/04/21 15:00 [id number]) Nutrition Malnutrition Evidence of Malnutrition Exists Yes Malnutrition (severe): Chronic Evidenced By Suboptimal Energy Intake ( Severe),Weight Loss (Severe) Clinical Problem Chronic Disease or Condition Related Malnutrition Etiology severe malnutrition r/t inadequate energy intake w/ increased energy needs d/t cancer Signs/Symptoms as evidenced by unintentional 34.1#/11% wt loss x 3 months, estimated PO intake meeting < 75% of estimated energy needs >3 months Status Active Problem Recommendation Dietitian Recommendations/Changes 1800 calorie, consistent CHO diet- texture/consistency modifications per OCCUPATIONAL ANALYST. Recommend OCCUPATIONAL ANALYST consult if chewing/swallowing issues persist. Pt refusing supplements- encourage protein at meals. Weight / BMI Weight Weight: 276 lb 14.409 oz Body Mass Index (BMI) 45.3 ABG / Lab / Microbiology Data Result Diagrams: 11/05/21 05:35 11/05/21 05:35 Laboratory: Laboratory Results - last 24 hr 11/04/21 12:00: POC Glucose 423 H 11/04/21 16:32: POC Glucose 485 H* 11/04/21 16:34: POC Glucose 476 H* 11/04/21 21:35: POC Glucose 458 H* 11/04/21 22:00: Glucose 498 H* 11/05/21 05:35: WBC 14.8 H, RBC 3.31 L, Hgb 11.2 L, Hct 33.6 L, MCV 101.5 H, MCH 33.8 H, MCHC 33.3, RDW Std Deviation 63.6 H, RDW Coeff of Mahnaz 16.9 H, Plt Count 122 L, MPV 10.7, Immature Gran % (Auto) 0.900, Neut % (Auto) 94.2 H, Lymph % (Auto) 2.4 L, Mason % (Auto) 2.4, Eos % (Auto) 0.0, Baso % (Auto) 0.1, Absolute Neuts (auto) 13.9 H, Absolute Lymphs (auto) 0.35 L, Nucleated RBC % 0, Anisocytosis 2+ 11/05/21 05:35: Sodium 136, Potassium 4.5, Chloride 109 H, Carbon Dioxide 22.0, Anion Gap 5, BUN 34 H, Creatinine 1.68 H, Estim Creat Clear Calc 28.04, Est GFR (MDRD) Af Amer 39 L, Est GFR (MDRD) Non-Af 32 L, BUN/Creatinine Ratio 20.2 H, Glucose 353 H, Calcium 9.1 11/05/21 06:17: POC Glucose 306 H 11/05/21 10:55: POC Glucose 397 H Microbiology: Microbiology 11/03/21 19:51 Sputum, Expectorated/Coughed Gram Stain - Final 11/03/21 19:51 Sputum, Expectorated/Coughed Respiratory Culture - Preliminary 11/03/21 21:20 Urine, Clean Catch Urine Culture - Final Presumptive E. coli 11/03/21 14:57 Blood Culture (Wb) - Port Blood Culture - Preliminary No growth in 48 hours. 11/03/21 15:20 Blood Culture (Wb) - Right Hand Blood Culture - Preliminary No growth in 48 hours. 11/03/21 21:20 Urine, Clean Catch Legionella Antigen - Final 11/03/21 21:20 Urine, Clean Catch Streptococcus pneumoniae Antigen (M - Final 11/03/21 18:30 Mucosa - Nose Rapid RSV (DFA) - Final 11/03/21 18:30 Mucosa - Nasopharyngeal Influenza Types A,B Direct FA (JUAN) - Final 11/03/21 15:18 Interface Orders SARS-CoV-2 Antigen (Rapid) - Final D/C Instructions Discharge Diet: Low fat / Low cholesterol Discharge Activity: Return to Normal Activity Weight Bearing Status: Weight bearing as tolerated Call your doctor if you observe: Fever of 101 or Higher, Shortness of breath, Swelling in the ankles, Chest pain, Increased palpitations (irregular heartbeat) and Uncontrolled pain Meaningful Use Info Meaningful Use Diagnoses (Choose all that apply): None applicable Discharge Plan Admission Admit Date/Time: 11/03/21 16:28 Primary Reason for Your Visit: sepsis due to pneumonia Attending Provider: [facility] Billy [facility] Patient Instructions: ED Pneumonia (Adult) Discharge Orders/Prescriptions Prescriptions: New levofloxacin 250 mg tablet 250 mg PO DAILY Qty: 7 RF: 0 prednisone 20 mg tablet 40 mg PO DAILY Qty: 10 RF: 0 Continued cholecalciferol (vitamin D3) 50,000 unit capsule 50,000 unit PO CANO Qty: 12 RF: 0 losartan 100 mg tablet 100 mg PO DAILY RF: 0 pravastatin 40 mg tablet 40 mg PO QHS Qty: 90 RF: 0 Trulicity 1.5 mg/0.5 mL pen injector 1.5 mg subcut CANO RF: 0 glipizide 10 mg tablet 10 mg PO DAILY RF: 0 amlodipine 10 mg tablet 10 mg PO DAILY RF: 0 Tradjenta 5 mg tablet 5 mg PO DAILY RF: 0 lidocaine-prilocaine 2.5-2.5 % cream 1 applic topical ONCE PRN (Reason: port access) 30 Days Qty: 30 RF: 2 ondansetron 4 mg tablet,disintegrating 4 mg PO Q8H PRN (Reason: nausea and vomiting) Qty: 30 RF: 2 Basaglar KwikPen U-100 Insulin 100 unit/mL (3 mL) insulin pen 14 unit subcut QPM RF: 0 allopurinol 300 MG tablet 300 mg PO QHS RF: 0 loperamide 2 mg Capsule 2 mg PO Q2H PRN PRN (Reason: chemotherapy associated diarrhea) Qty: 30 RF: 0 lidocaine HCl [Lidocaine Viscous] 2 % Solution 5 ml PO Q3H PRN (Reason: dysphagia) 30 Days Qty: 100 RF: 0 levothyroxine 25 mcg tablet 25 mcg PO DAILY RF: 0 furosemide 20 mg tablet 20 mg PO DAILY RF: 0 prednisone 10 mg tablet 10 mg PO QDAY RF: 0 Discontinued amoxicillin-pot clavulanate 875-125 mg tablet 1 tab PO BID RF: 0 [facility]Primary Care Provider[facility] - Within 2 Weeks Disposition Disposition (needs filled in before D/C Order can be placed): Home, Self Care Charges/Coding Visit Charges Inpatient E&M: 73454 Disch Hosp
--- NOTE | 2021-11-08 13:56 | CASEMGMT ---
Social Work SW received a message from Makayla at [facility] requesting a phone number for pt, the referral for regional intermodal truck driver care assessment. SW called [facility] back, message left for Makayla with pt's phone numbers. QUINCY Cheney
== END 2021-11-05 13:57 | disposition home or self-care (01) | DRG 871 ==
LOC: ED 16:25 → MS3 16:54
PROVIDERS: Admitting Provider Internal Medicine; Emergency Provider Emergency Medicine; Visit Provider Student in an Organized Health Care Education/Training Program
DX: A41.9 Sepsis, unspecified organism (principal); J18.9 Pneumonia, unspecified organism; D84.9 Immunodeficiency, unspecified; N17.9 Acute kidney failure, unspecified; E87.2 Acidosis; C34.31 Malignant neoplasm of lower lobe, right bronchus or lung; Z68.42 Body mass index [BMI] 45.0-49.9, adult; R65.20 Severe sepsis without septic shock; Z79.4 Long term (current) use of insulin; E66.01 Morbid (severe) obesity due to excess calories; E11.9 Type 2 diabetes mellitus without complications; I10 Essential (primary) hypertension; E78.00 Pure hypercholesterolemia, unspecified; E86.0 Dehydration; G47.33 Obstructive sleep apnea (adult) (pediatric); E03.9 Hypothyroidism, unspecified; M10.9 Gout, unspecified; E55.9 Vitamin D deficiency, unspecified; E78.5 Hyperlipidemia, unspecified; Z87.891 Personal history of nicotine dependence; Z20.822 Contact with and (suspected) exposure to COVID-19; Z80.1 Family history of malignant neoplasm of trachea, bronchus and lung; R13.10 Dysphagia, unspecified; Z80.3 Family history of malignant neoplasm of breast; Z92.21 Personal history of antineoplastic chemotherapy; Z92.3 Personal history of irradiation
CPT/HCPCS: 36415; 36591; 71045; 80048; 80053; 81001; 82947; 82962; 83605; 83735; 84100; 84443; 84484; 85025; 85610; 85730; 87040; 87070; 87077; 87086; 87088; 87205; 87426; 87449; 87641; 87804; 87807; 93005; 94640; 94667; 94668; 97116; 97162; 97166; 97530; 97535; 99251; 99285; J7030; J7040; J7050; J7120; G0463

== ENCOUNTER 2021-11-12 12:58 | Outpatient (CLI) | payer MEDICARE, MEDICAID, SELFPAY ==
--- NOTE | 2021-11-12 13:01 | CT_ITS ---
STUDY: CT CHEST WITH CONTRAST REASON FOR EXAM: Female, 71 years old. ASSESS TREATMENT RESPONSE-LUNG CA. Status post chemotherapy. RADIATION DOSAGE (If Supplied By Facility): CTDIvol = ( 13.12 ) mGy, DLP = ( 649.81 ) mGycm TECHNIQUE: Transaxial imaging was performed following intravenous administration of IV 100mL Isovue-370. Multiplanar coronal and sagittal images were reformatted. Individualized dose optimization techniques were used for this CT. COMPARISON: Comparison is made with prior examination dated 05/03/2021. FINDINGS: A right-sided portacatheter is seen with the tip in the superior vena cava. Focal scarring and Loss is seen along the medial aspect of the right middle lobe. Adjacent to this in the anterior lateral aspect of the right middle lobe there is evidence of a 2 cm x 1.8 cm area of groundglass appearance. This may represent changes related to radiotherapy. The previously seen spiculated nodular density in the right lower lobe has decreased in size. It presently measures 1.3 cm x 3.5 cm. Persistent linear density posteriorly extending into the pleural surface. There is no demonstrated pleural abnormality. Normal heart and pericardium. Calcified lymph node in the aortopulmonary window. Normal hilar regions. Normal enhanced pulmonary arteries. Normal aorta arch and descending thoracic aorta. There are multi-level degenerative changes of the thoracic spine. There is no demonstrated abnormality of the visualized upper abdomen. CT/Chest WITH Contrast IMPRESSION: Interval decrease in size of the SPECT data nodule in the posterior aspect of the right lower lobe with adjacent linear density. Focal bone loss and groundglass appearance in the right middle lobe most likely related to the postradiation treatment. Electronically Signed: Cristino Medina MD at 13:47 EST , Service support ,
== END 2021-11-12 23:59 | disposition short-term general hospital (02) ==
LOC: CT 12:59
PROVIDERS: Referring Provider Internal Medicine Medical Oncology; Visit Provider Internal Medicine Medical Oncology
DX: C34.91 Malignant neoplasm of unspecified part of right bronchus or lung (principal)
CPT/HCPCS: 71260; Q9967; A4216

== ENCOUNTER 2021-11-28 14:56 | Inpatient (IN) | payer MEDICARE, MEDICAID, SELFPAY ==
[2021-11-28] VITALS (11 sets, daily range): BP systolic 109–149; BP diastolic 68–87; PULSE 110–129; RESP 18–36; TEMP 35.6–36.6; O2SAT 93–100; BMI 44.8; BMI 44.0
--- NOTE | 2021-11-28 15:55 | EKG12_ITS ---
Test Reason : SOB Blood Pressure : / mmHG Vent. Rate : 114 BPM Atrial Rate : 114 BPM P-R Int : 132 ms QRS Dur : 100 ms QT Int : 362 ms P-R-T Axes : 033 017 012 degrees QTc Int : 498 ms Sinus tachycardia Nonspecific ST and T wave abnormality Abnormal ECG Incomplete right bundle branch block Confirmed by DECLAN HERNANDEZ, MICHELE ([id number]), news copy editor DASHAWN DIAZ ([id number]) on 11/29/2021 11:37:09 AM Referred By: RO Confirmed By:MICHELE MANRIQUEZ MD
[2021-11-28] MEDS: Albuterol 2.5 MG/3 ML VIAL.NEB. INHALATION ×2 (16:14)
[2021-11-28] MEDS: Ipratropium/Albuterol Sulfate 3 ML AMPUL.NEB INHALATION (16:14)
--- NOTE | 2021-11-28 16:16 | EDS_ITS ---
HPI History of Present Illness Chief Complaint: Shortness of Breath Informant: patient Onset/Context/Timing Onset: Weeks Context: Gradual Onset Current Severity: Moderate Maximum Severity: Moderate Narrative Narrative: Patient presents secondary to increase shortness of breath and cough. She is currently being treated for non-small cell lung cancer. She was admitted to the hospital November 03 to the with pneumonia. Patient states she felt pretty well at the time of discharge but since then has gradually worsened. She denies fever or chills. She states she will get central chest pain when she gets a coughing fit only. [facility] Medical History Abdominal pain Ambulates with cane Anxiety Back pain Bladder disease Cancer Chills Cholelithiasis Cough CPAP (continuous positive airway pressure) dependence Dehydration Diabetes Diabetes mellitus, type II Diarrhea Dietary restriction DJD (degenerative joint disease) Dysphagia Easy bruising Encounter for education Fatty food intolerance Former smoker Gastric reflux Gout High cholesterol History of echocardiogram History of edema History of nephrolithiasis History of pain when walking Hyperlipidemia Hypertension Hypertension Hypomagnesemia Lactic acidosis Leukopenia due to antineoplastic chemotherapy Lung cancer Migraine headache Morbid obesity with BMI of 45.0-49.9, adult Non-small cell cancer of right lung Odynophagia Odynophagia Rheumatoid arthritis Shortness of breath on exertion Sleep apnea Thyroid disease Wears glasses Home Medications allopurinol 300 mg PO QHS 07/10/15 [History Last Taken 11/02/21] cholecalciferol (vitamin D3) 1,250 mcg (50,000 unit) capsule 50,000 unit PO CANO #12 cap 08/16/19 [History Last Taken 10/31/21] losartan 100 mg tablet 100 mg PO DAILY 08/16/19 [History Last Taken 11/02/21] pravastatin 40 mg tablet 40 mg PO QHS #90 tab 08/16/19 [History Last Taken 11/02/21] dulaglutide 1.5 mg/0.5 mL subcutaneous pen injector 1.5 mg SUBCUT CANO 04/20/21 [History Last Taken 10/31/21] amlodipine 10 mg tablet 10 mg PO DAILY 08/05/21 [History Last Taken 11/03/21] glipizide 10 mg tablet 10 mg PO DAILY 08/05/21 [History Last Taken 11/02/21] linagliptin 5 mg tablet 5 mg PO DAILY 08/09/21 [History Last Taken 11/03/21] lidocaine-prilocaine 2.5 %-2.5 % topical cream 1 applic TOPICAL ONCE PRN 30 Days #30 g 08/16/21 [Rx Last Taken Unknown] ondansetron 4 mg disintegrating tablet 4 mg PO Q8H PRN #30 tab 08/16/21 [Rx Last Taken 11/02/21] insulin glargine 100 unit/mL (3 mL) subcutaneous pen 14 unit SUBCUT QPM 09/08/21 [History Last Taken 11/02/21] furosemide 20 mg PO DAILY 11/03/21 [History Last Taken 11/03/21] levothyroxine 25 mcg PO DAILY 11/03/21 [History Last Taken 11/03/21] potassium chloride 10 meq PO DAILY 11/28/21 [History Last Taken Unknown] Allergy/AdvReac Type Severity Reaction Status Date / Time No Known Allergies Allergy Verified 11/28/21 14:57 Family History Father Lung cancer Sister Breast cancer Mother Hypertension Other Heart disease Kidney disease Surgical History H/O tubal ligation History of cholecystectomy Hx of colonoscopy Social History adopted: No household members: none number of children: 3 current occupational status: retired Smoking Status: Former smoker Tobacco: How many years used: 2 alcohol intake: current alcohol intake frequency: 0-2 drinks per day substance use type: does not use what type of physical activity do you participate in: none additional social history: ROS ROS ED Constitutional Constitutional ED: Denies chills or fever(s) Eyes Eyes: Denies change in vision ENT ENT ED: Denies sore throat Cardiovascular Cardiovascular: Reports chest pain Respiratory/Chest Respiratory/Chest: Reports cough and dyspnea Gastrointestinal Gastrointestinal: Reports abdominal pain; Denies diarrhea, nausea or vomiting Genitourinary Genitourinary ED: Denies dysuria Musculoskeletal Musculoskeletal: Denies back pain or neck pain Integumentary Denies rash Neurologic Neurologic: Reports weakness; Denies headache(s) Allergic/Immunologic Allergic/Immunologic ED: Denies urticaria EXAM Physical Exam Const Vital Signs: 11/28/21 14:58 11/28/21 15:01 11/28/21 16:15 Temperature 96.1 F L Temperature Source Temporal Pulse Rate 117 H 118 H Respiratory Rate 36 H 24 H Respiratory Pattern Tachypnea Blood Pressure 149/74 H Blood Pressure Mean 99 Pulse Ox 100 Oxygen Delivery Method Room Air Room Air 11/28/21 17:59 11/28/21 19:17 Temperature Temperature Source Pulse Rate 129 H 120 H Respiratory Rate 18 28 H Respiratory Pattern Blood Pressure 135/87 H 122/82 H Blood Pressure Mean 103 95 Pulse Ox 96 96 Oxygen Delivery Method Room Air Room Air Positive well nourished and well developed General Appearance ED: well developed HEENT Reports moist mucous membranes Eyes PERRL and EOMs intact bilaterally Neck supple Chest Wall inspection of chest normal and palpation of chest normal Resp Resp Narrative: Expiratory wheezes bilaterally. Cardio Rate: tachycardic GI non-tender Auscultation: hypoactive bowel sounds Palpation: soft Extremity normal to inspection Neuro oriented x3 Sensorium / Orientation: alert Psych mental status grossly normal Skin no rashes or lesions noted MDM MDM MDM Narrative Medical decision making narrative: Patient given Solu-Medrol along with aerosols. Lab work, chest x-ray obtained. EKG ordered. Lab Data Attestation: I reviewed the patient's lab results. Labs: Laboratory Results - last 24 hr 11/28/21 11/28/21 11/28/21 16:40 16:40 16:40 WBC 9.6 RBC 4.06 L Hgb 14.2 Hct 40.4 MCV 99.5 H MCH 35.0 H MCHC 35.1 RDW Std Deviation 52.5 H RDW Coeff of Mahnaz 14.3 Plt Count 122 L MPV 11.0 Immature Gran % (Auto) 0.400 Neut % (Auto) 60.7 Lymph % (Auto) 28.9 [place] % (Auto) 9.2 Eos % (Auto) 0.5 Baso % (Auto) 0.3 Absolute Neuts (auto) 5.8 Absolute Lymphs (auto) 2.77 Nucleated RBC % 0 D-Dimer Quant (PE/DVT) 3.62 H* Sodium 140 Potassium 3.2 L Chloride 106 Carbon Dioxide 24.0 Anion Gap 10 BUN 23 H Creatinine 1.44 H Estim Creat Clear Calc 32.71 Est GFR (MDRD) Af Amer 46 L Est GFR (MDRD) Non-Af 38 L BUN/Creatinine Ratio 16.0 Glucose 207 H Lactic Acid Calcium 9.0 11/28/21 16:40 WBC RBC Hgb Hct MCV MCH MCHC RDW Std Deviation RDW Coeff of Mahnaz Plt Count MPV Immature Gran % (Auto) Neut % (Auto) Lymph % (Auto) [place] % (Auto) Eos % (Auto) Baso % (Auto) Absolute Neuts (auto) Absolute Lymphs (auto) Nucleated RBC % D-Dimer Quant (PE/DVT) Sodium Potassium Chloride Carbon Dioxide Anion Gap BUN Creatinine Estim Creat Clear Calc Est GFR (MDRD) Af Amer Est GFR (MDRD) Non-Af BUN/Creatinine Ratio Glucose Lactic Acid 2.5 H* Calcium Rapid COVID: Negative Radiography Chest X-Ray - ED: 1 View, Read by ED Physician and Chronic Changes Diagnostic Testing: Clinical Impression(s) from Imaging Studies Chest X-Ray 11/28/21 16:55 IMPRESSION: Mild basilar atelectasis. Electronically Signed: Demetrius Duenas DO at 17:51 EST , Chest CTA 11/28/21 17:23 IMPRESSION: 1. Moderate volume acute pulmonary embolism. 2. Moderate chronic pulmonary tail hypertension, unreliable assessment for acute right heart strain. 3. Treated right lower lobe lung cancer. 4. Suboptimally evaluated lung parenchyma, recommend short-term repeat, possibly pneumonia or artifact. 5. Indeterminate sclerotic lesion in T12, refer to subsequent bone imaging. Electronically Signed: Susan Loyd MD at 19:32 EST , EKG Initial EKG: Attestation: I personally reviewed and interpreted this EKG as follows: Interpretation: Sinus Tachycardia (Sinus tach at 114. No acute ST change.) Treatment and Re-Evaluation Comments:: Lab work significant for elevated D-dimer at 3.62. Potassium slightly low at 3.2 and replaced IV. Creatinine is 1.44 which is slightly improved when compared to prior values. Lactic acid 2.5. Rapid Covid test is negative. Chest x-ray reveals chronic changes with no obvious infiltrate. CTA of the chest is obtained which reveals moderate volume of pulmonary emboli. On repeat examination patient is still having significant cough. She is on room air. We will give her a dose of Robitussin-AC as well as Eliquis. I will speak with hospitalist regarding observation for initiation of PE treatment along with replacement of potassium and cough control. Discharge Plan Triage Chief Complaint: Shortness of Breath ED Provider: Helen Saavedra Dx/Rx/DC Orders Clinical Impression: Pulmonary emboli, Hypokalemia Prescriptions: No Action cholecalciferol (vitamin D3) 50,000 unit capsule 50,000 unit PO CANO Qty: 12 RF: 0 losartan 100 mg tablet 100 mg PO DAILY RF: 0 pravastatin 40 mg tablet 40 mg PO QHS Qty: 90 RF: 0 Trulicity 1.5 mg/0.5 mL pen injector 1.5 mg subcut CANO RF: 0 glipizide 10 mg tablet 10 mg PO DAILY RF: 0 amlodipine 10 mg tablet 10 mg PO DAILY RF: 0 Tradjenta 5 mg tablet 5 mg PO DAILY RF: 0 lidocaine-prilocaine 2.5-2.5 % cream 1 applic topical ONCE PRN (Reason: port access) 30 Days Qty: 30 RF: 2 ondansetron 4 mg tablet,disintegrating 4 mg PO Q8H PRN (Reason: nausea and vomiting) Qty: 30 RF: 2 Basaglar KwikPen U-100 Insulin 100 unit/mL (3 mL) insulin pen 14 unit subcut QPM RF: 0 allopurinol 300 MG tablet 300 mg PO QHS RF: 0 levothyroxine 25 mcg tablet 25 mcg PO DAILY RF: 0 furosemide 20 mg tablet 20 mg PO DAILY RF: 0 potassium chloride 10 mEq Tablet Extended Release 10 meq PO DAILY RF: 0 Primary Care Provider: Petty Moraes Referrals: [facility] Petty Silva [Primary Care Provider] - Disposition Disposition: Acute Care Hospital [facility]
[2021-11-28] MEDS: MethylPREDNISolone 125 MG/2 ML Vial IV (16:51)
--- NOTE | 2021-11-28 16:55 | RAD_ITS ---
STUDY: X-RAY CHEST REASON FOR EXAM: Female, 71 years old. sob TECHNIQUE: Frontal view COMPARISON: 11/03/2021 FINDINGS: Stable right venous port. The lungs are not fully expanded. Mild basilar atelectasis. Normal size heart. Normal mediastinum and dragan. Normal visualized pulmonary arteries. Normal visualized aortic arch and descending thoracic aorta. Degenerative changes of the thoracic spine. Normal visualized ribs, clavicles, and shoulders. There is no demonstrated abnormality of the visualized soft tissue structures of the upper abdomen. RAD/Chest 1 View (Portable) IMPRESSION: Mild basilar atelectasis. Electronically Signed: Demetrius Duenas DO at 17:51 EST Reading Location ID and State: [facility] / [place] Tel [phone], Service support ,
[2021-11-28 17:01] LABS: Absolute Lymphocyte Count 2.77 X10^3/uL (0.83-4.51); Absolute Neutrophil Count 5.8 X10^3/uL (2.0-7.7); Basophil# 0.03 X10^3/uL; Basophil% 0.3 % (0-1); Eosinophil# 0.05 X10^3/uL; Eosinophils% 0.5 % (0-5); Hematocrit 40.4 % (37-47); Hemoglobin 14.2 g/dL (12.0-15.0); Lymphocyte # 2.77 X10^3/ul (0.83-4.51); Lymphocyte % 28.9 % (19-41); Mean Corp Hgb Conc 35.1 g/dL (32-36); Mean Corpuscular Volume 99.5 fL (81-99); Monocyte# 0.88 X10^3/uL; Monocyte% 9.2 % (0-10); NRBC Flagged by Analyzer 0 % (0-5); Neutrophil # 5.81 X10^3/uL (2.7-7.7); Neutrophil % 60.7 % (47-70); Platelet Count 122 K/mm3 (150-450); RBC Distribution Width CV 14.3 % (11.6-14.6); RBC Distribution Width SD 52.5 fl (35.1-43.9); Red Blood Count 4.06 M/mm3 (4.2-5.4); White Blood Count 9.6 K/mm3 (4.4-11.0)
[2021-11-28 17:11] LABS: Anion Gap 10 (5-15); BUN 23 mg/dL (7-18); Chloride 106 mmol/L (98-107); Creatinine, Serum 1.44 mg/dL (0.55-1.02); EST Glomerular Filtration Rate 38 mL/min (>60); Est Glom Filt Rate - Afr Amer 46 mL/min (>60); Estimated Creatinine Clearance 32.71 ml/min; Glucose 207 mg/dL (74-106); Potassium 3.2 mmol/L (3.5-5.1); Sodium Level 140 mmol/L (136-145)
[2021-11-28 17:14] LABS: D-Dimer Quantitative (DVT/PE) 3.62 FEU/ug/m (0.27-0.49)
--- NOTE | 2021-11-28 17:23 | CT_ITS ---
STUDY: CTA CHEST REASON FOR EXAM: Female, 71 years old. Chest pain shortness of breath evaluation for pulmonary embolism RADIATION DOSAGE (If Supplied By Facility): CTDIvol = ( 12.67 ) mGy, DLP = ( 475.64 ) mGycm TECHNIQUE: The examination was performed with the intravenous administration of IV 100mL Isovue-370. Post-processing of the angiographic images was performed, with multiplanar reformation and 3D reconstruction. Individualized dose optimization techniques were used for this CT. COMPARISON: 12 November 2021 FINDINGS: There is acute pulmonary embolism bilaterally in the upper lobes and left lower lobe, moderate volume of thrombus, with visually estimated occlusive index of 30%. Pulmonary arteries are chronically moderately dilated due to pulmonary arterial hypertension. Aorta is normal. Corneae arteries are severely diseased. Lung parenchyma is suboptimally evaluated due to respiratory motion artifact. There are likely radial and superimposed artifactual groundglass opacities. There is right lower lobe irregular linear opacity representing treated lung cancer. There is benign calcified left upper hilar lymph node. There are indeterminate right hilar lymph nodes. There is no pulmonary edema or pleural effusions. Chemotherapy infusion port enters the right internal jugular and terminates in the upper right atrium. There is a subcentimeters sclerotic focus in the anterior T12. This is of unclear etiology but was not present on the prior in 2019. CT/CTA Chest W/WO Contrast IMPRESSION: 1. Moderate volume acute pulmonary embolism. 2. Moderate chronic pulmonary tail hypertension, unreliable assessment for acute right heart strain. 3. Treated right lower lobe lung cancer. 4. Suboptimally evaluated lung parenchyma, recommend short-term repeat, possibly pneumonia or artifact. 5. Indeterminate sclerotic lesion in T12, refer to subsequent bone imaging. Electronically Signed: Susan Loyd MD at 19:32 EST ,
[2021-11-28 17:43] LABS: Lactic Acid 2.5 mmol/L (0.4-1.9)
[2021-11-28] MEDS: Potassium Chloride 10mEq/100mL 10 MEQ/100 ML IV.SOLN. 100 MEQ IV BOLUS ×4 (18:00→22:46)
[2021-11-28] MEDS: 0.9% Normal Saline 1,000 ML 1000 ML IV (18:04)
[2021-11-28] MEDS: 0.9% Normal Saline 1,000 ML 150 ML IV (19:51)
[2021-11-28] MEDS: APIXABAN 5 MG TABLET 10 MG PO (19:51)
[2021-11-28] MEDS: guaiFENesin/Codeine 5 ML UDC PO (20:03)
[2021-11-28 20:24] LABS: Troponin-I HS 36 pg/mL (3.0-54.0)
[2021-11-28 20:55] LABS: Reflex Lactate? Y
--- NOTE | 2021-11-28 21:21 | PCM.HP.STD ---
HPI - General General Date of Admission: 11/28/21 HPI Narrative STAN MCKINNEY, is a 71 F with a significant history of hypothyroidism on Synthroid; of non-small cell lung cancer who presents to the emergency department with persistent shortness of breath and cough. Patient reported that her symptom has been going as since the biopsy of her right lung. She estimated symptoms going on for about 6 months. As she was admitted to the hospital on November 03 to November 05 for pneumonia. Her cough is occasionally productive with light brown sputum. She reports inability to sleep secondary to shortness of breath and cough. She reports poor appetite and fatigue. She report bilateral leg swelling that has actually increased. [facility] Medical History Abdominal pain Ambulates with cane Anxiety Back pain Bladder disease Cancer Chills Cholelithiasis Cough CPAP (continuous positive airway pressure) dependence Dehydration Diabetes Diabetes mellitus, type II Diarrhea Dietary restriction DJD (degenerative joint disease) Dysphagia Easy bruising Encounter for education Fatty food intolerance Former smoker Gastric reflux Gout High cholesterol History of echocardiogram History of edema History of nephrolithiasis History of pain when walking Hyperlipidemia Hypertension Hypertension Hypomagnesemia Lactic acidosis Leukopenia due to antineoplastic chemotherapy Lung cancer Migraine headache Morbid obesity with BMI of 45.0-49.9, adult Non-small cell cancer of right lung Odynophagia Odynophagia Rheumatoid arthritis Shortness of breath on exertion Sleep apnea Thyroid disease Wears glasses Home Medications allopurinol 300 mg PO QHS 07/10/15 [History Last Taken 11/02/21] cholecalciferol (vitamin D3) 1,250 mcg (50,000 unit) capsule 50,000 unit PO CANO #12 cap 08/16/19 [History Last Taken 10/31/21] losartan 100 mg tablet 100 mg PO DAILY 08/16/19 [History Last Taken 11/02/21] pravastatin 40 mg tablet 40 mg PO QHS #90 tab 08/16/19 [History Last Taken 11/02/21] dulaglutide 1.5 mg/0.5 mL subcutaneous pen injector 1.5 mg SUBCUT CANO 04/20/21 [History Last Taken 10/31/21] amlodipine 10 mg tablet 10 mg PO DAILY 08/05/21 [History Last Taken 11/03/21] glipizide 10 mg tablet 10 mg PO DAILY 08/05/21 [History Last Taken 11/02/21] linagliptin 5 mg tablet 5 mg PO DAILY 08/09/21 [History Last Taken 11/03/21] lidocaine-prilocaine 2.5 %-2.5 % topical cream 1 applic TOPICAL ONCE PRN 30 Days #30 g 08/16/21 [Rx Last Taken Unknown] ondansetron 4 mg disintegrating tablet 4 mg PO Q8H PRN #30 tab 08/16/21 [Rx Last Taken 11/02/21] insulin glargine 100 unit/mL (3 mL) subcutaneous pen 14 unit SUBCUT QPM 09/08/21 [History Last Taken 11/02/21] furosemide 20 mg PO DAILY 11/03/21 [History Last Taken 11/03/21] levothyroxine 25 mcg PO DAILY 11/03/21 [History Last Taken 11/03/21] potassium chloride 10 meq PO DAILY 11/28/21 [History Last Taken Unknown] Allergy/AdvReac Type Severity Reaction Status Date / Time No Known Allergies Allergy Verified 11/28/21 14:57 Family History Father Lung cancer Sister Breast cancer Mother Hypertension Other Heart disease Kidney disease Surgical History H/O tubal ligation History of cholecystectomy Hx of colonoscopy Social History adopted: No household members: none number of children: 3 current occupational status: retired Smoking Status: Former smoker Tobacco: How many years used: 2 alcohol intake: current alcohol intake frequency: 0-2 drinks per day substance use type: does not use what type of physical activity do you participate in: none additional social history: ROS ROS Narrative Pertinent positives and pertinent negatives as noted in HPI. All other systems were reviewed and are negative. Vital Signs Vital Signs Vital Signs: 11/28/21 14:58 11/28/21 15:01 11/28/21 16:15 Temperature 96.1 F L Temperature Source Temporal Pulse Rate 117 H 118 H Respiratory Rate 36 H 24 H Respiratory Pattern Tachypnea Blood Pressure 149/74 H Blood Pressure Mean 99 Pulse Ox 100 Oxygen Delivery Method Room Air Room Air 11/28/21 17:59 11/28/21 19:17 11/28/21 21:00 Temperature Temperature Source Pulse Rate 129 H 120 H 115 H Respiratory Rate 18 28 H 28 H Respiratory Pattern Blood Pressure 135/87 H 122/82 H 109/68 Blood Pressure Mean 103 95 81 Pulse Ox 96 96 93 Oxygen Delivery Method Room Air Room Air Weight Weight: 122.1 kg Body Mass Index (BMI) 44.8 Physical Exam Narrative Physical exam: General: Well-nourished, well-developed. Head: Normocephalic, atraumatic, no tenderness Eyes: PERRLA, EOMI ENT, no trauma, moist mucous membranes, no rhinorrhea Neck: Nontender, full range of motion, no spinal tenderness, deformities, step-off CVS: Tachycardia. S1-S2 present. No murmur, gallop or rub. Respiratory : Tachypneic. chest wall nontender. Wheezes. Abdomen: Soft, nontender, nondistended, normal bowel sounds, no masses : Deferred Back: Nontender, no CVA tenderness, no midline spinal tenderness, deformities, step-offs Extremities: Bilateral lower extremity swelling. Nontender full range of motion, no trauma Skin: Normal color, no trauma, abrasions Neuro: Alert, oriented, cranial nerves II through XII grossly intact. Psychiatry: Appears depressed and anxious. Results Lab / Micro Data Result Diagrams: 11/28/21 16:40 11/28/21 16:40 Labs: Laboratory Results - last 24 hr 11/28/21 16:40: WBC 9.6, RBC 4.06 L, Hgb 14.2, Hct 40.4, MCV 99.5 H, MCH 35.0 H, MCHC 35.1, RDW Std Deviation 52.5 H, RDW Coeff of Mahnaz 14.3, Plt Count 122 L, MPV 11.0, Immature Gran % (Auto) 0.400, Neut % (Auto) 60.7, Lymph % (Auto) 28.9, [place] % (Auto) 9.2, Eos % (Auto) 0.5, Baso % (Auto) 0.3, Absolute Neuts (auto) 5.8, Absolute Lymphs (auto) 2.77, Nucleated RBC % 0 11/28/21 16:40: D-Dimer Quant (PE/DVT) 3.62 H* 11/28/21 16:40: Sodium 140, Potassium 3.2 L, Chloride 106, Carbon Dioxide 24.0, Anion Gap 10, BUN 23 H, Creatinine 1.44 H, Estim Creat Clear Calc 32.71, Est GFR (MDRD) Af Amer 46 L, Est GFR (MDRD) Non-Af 38 L, BUN/Creatinine Ratio 16.0, Glucose 207 H, Calcium 9.0 11/28/21 16:40: Lactic Acid 2.5 H* 11/28/21 19:58: Troponin I High Sens 36 Micro: Microbiology 11/28/21 16:40 Nasal Secretion SARS-CoV-2 Antigen (Rapid) - Final Radiology Impression Chest X-Ray 11/28/21 16:55 IMPRESSION: Mild basilar atelectasis. Electronically Signed: Demetrius Duenas DO at 17:51 EST , Chest CTA 11/28/21 17:23 IMPRESSION: 1. Moderate volume acute pulmonary embolism. 2. Moderate chronic pulmonary tail hypertension, unreliable assessment for acute right heart strain. 3. Treated right lower lobe lung cancer. 4. Suboptimally evaluated lung parenchyma, recommend short-term repeat, possibly pneumonia or artifact. 5. Indeterminate sclerotic lesion in T12, refer to subsequent bone imaging. Electronically Signed: Susan Loyd MD at 19:32 EST , Assessment & Plan Assessment/Plan (1) Pulmonary emboli: QUALIFIERS: Acute cor pulmonale presence: unspecified Chronicity: acute Pulmonary embolism type: other Qualified Code(s): I26.99 - Other pulmonary embolism without acute cor pulmonale (2) Hypokalemia: (3) Wheezes: PLAN: Acute pulmonary embolism D-dimer on presentation was elevated at 3.62. Chest CTA image was visualized and independently interpreted. I agree with radiologist interpretation of moderate volume acute pulmonary embolism. Per radiologist lung parenchyma was suboptimally evaluated. Started on Eliquis at the emergency department and continued. Trend troponin. Trend lactic acid. Get bilateral Doppler since it could change director if patient has an occlusive clots that could be considered for thrombectomy in the setting of patient reporting of bilateral increase in her leg swelling. Started on Eliquis at the emergency department and continued. Echocardiogram ordered. Wheezes Received a Solu-Medrol and breathing treatment at the emergency department. Prednisone 40 mg daily ordered. Scheduled DuoNeb and as needed albuterol ordered. Scheduled Mucinex ordered.. Tessalon Perles ordered. Lactic acidosis Likely secondary to pulmonary embolism.With her pulmonary symptoms and no conclusive evidence of pneumonia/ septic shock will avoid fluid boluses at this time. Patient has no fever or white count elevation. Diabetes mellitus Patient with hyperglycemia on presentation Continue home basal insulin. Continue glipizide. Continue linagliptin. Trulicity is on hold in the hospital setting. Anticipate blood glucose requirements will increase with steroids. Accu-Chek QA CHS with correction scale insulin ordered. Hypokalemia Potassium on presentation was 3.2. Received placement emergency department. Trend BMP. Continue home supplementation. Check magnesium. Hypertension Blood pressure is stable Home losartan and Lasix continued. Trend blood pressure and adjust blood pressure medications. Bilateral lower extremity swelling JER hose continued. Continue home Lasix. CKD stage IIIa Stable Trend BMP. DVT prophylaxis not indicated since patient has already been started on Eliquis for acute PE Charges/Coding Visit Charges Inpatient E&M: 73143 Init Hosp L3
--- NOTE | 2021-11-28 21:55 | ECHOD_ITS ---
Version 2 Reason For Study: Pulm emboli Procedure This was a 2D Doppler, Color Flow transthoracic echocardiogram. Exam performed portable in patient room. Left Ventricle Normal LV size. Moderate eccentric left ventricular hypertrophy. Left ventricular systolic function is normal. The estimated ejection fraction is 65 %. Stage 1 diastolic dysfunction. Right Ventricle Normal RV size. Normal systolic function. Mitral Valve There is mild mitral annular calcification. Tricuspid Valve Normal tricuspid valve. Mild (1+) tricuspid valve insufficiency. Pulmonary artery systolic pressure is 40 mmHg. Aortic Valve Trisinus/trileaflet aortic valve. Mild focal aortic valve calcification. Mild (1+) aortic valve insufficiency. Great Vessels Normal aortic root. The pulmonary artery is normal size. Normal inferior vena cava. Pericardium/Pleural No pericardial effusion. MMode/2D Measurements & Calculations LVIDd: 2.6 cm IVSd: 1.6 cm LVOT diam: 2.0 cm LVIDs: 1.7 cm LVPWd: 1.2 cm LVOT area: 3.2 cm2 FS: 34.2 % Ao root diam: 3.5 cm LAV(MOD-sp2): 43.3 ml LA dimension(2D): 3.6 cm Doppler Measurements & Calculations MV E max compa: 83.0 cm/sec Lat Peak E' Compa: 5.7 cm/sec Med Peak E' Compa: 4.5 cm/sec MV A max compa: 144.0 cm/sec E/E' lat: 14.5 E/E' med: 18.4 MV E/A: 0.58 Ao V2 max: 204.7 cm/sec AI max compa: 329.4 cm/sec LV V1 max: 166.8 cm/sec Ao max P.8 mmHg AI max P.4 mmHg LV V1 max P.1 mmHg Ao V2 mean: 143.0 cm/sec AI dec slope: 286.4 cm/sec2 LV V1 mean P.3 mmHg Ao mean P.2 mmHg AI P1/2t: 337.0 msec LV V1 mean: 117.2 cm/sec Ao V2 VTI: 31.0 cm LV V1 VTI: 26.9 cm BARRETT(I,D): 2.7 cm2 BARRETT(V,D): 2.6 cm2 SV(LVOT): 85.2 ml PA V2 max: 101.9 cm/sec TR max compa: 298.1 cm/sec TR max P.5 mmHg ECHO/Echo Complete Interpretation Summary Normal LV size. Moderate eccentric left ventricular hypertrophy. Left ventricular systolic function is normal. The estimated ejection fraction is 65 %. Stage 1 diastolic dysfunction. Mild (1+) aortic valve insufficiency. Pulmonary artery systolic pressure is 40 mmHg. Ordering Physician: Esvin Marie Referring Physician: Petty [facility] Performed By: Selma Olguin, DEBBI, RVT
[2021-11-28 22:10] LABS: Lactic Acid 4.2 mmol/L (0.4-1.9)
[2021-11-28] MEDS: Allopurinol 300 MG Tablet PO (23:41)
[2021-11-28] MEDS: guaiFENesin 600 MG Tablet PO (23:41)
[2021-11-28] MEDS: Pravastatin 40 MG Tablet PO (23:41)
[2021-11-29] VITALS (13 sets, daily range): BP systolic 94–118; BP diastolic 46–76; PULSE 101–127; RESP 16–20; TEMP 36.4–36.8; O2SAT 96–98
[2021-11-29] MEDS: Insulin Lispro 100 UNIT/ML INSULN.PEN SC ×4 (00:18→17:16)
[2021-11-29 00:21] LABS: Bedside Glucose 357 mg/dL (70-110)
[2021-11-29] MEDS: MELATONIN 3 MG TABLET PO ×2 (00:49→20:38)
[2021-11-29 00:50] LABS: Troponin-I HS 37 pg/mL (3.0-54.0)
[2021-11-29] MEDS: Ipratropium/Albuterol Sulfate 3 ML AMPUL.NEB INHALATION ×4 (01:07→20:16)
[2021-11-29 02:30] LABS: Absolute Lymphocyte Count 0.42 X10^3/uL (0.83-4.51); Absolute Neutrophil Count 5.1 X10^3/uL (2.0-7.7); Basophil# 0.01 X10^3/uL; Basophil% 0.2 % (0-1); Hematocrit 35.3 % (37-47); Hemoglobin 12.4 g/dL (12.0-15.0); Lymphocyte # 0.42 X10^3/ul (0.83-4.51); Lymphocyte % 7.6 % (19-41); Mean Corp Hgb Conc 35.1 g/dL (32-36); Mean Corpuscular Volume 96.7 fL (81-99); Mean Platelet Vol. 10.8 fl (6.2-12.0); Monocyte# 0.05 X10^3/uL; Monocyte% 0.9 % (0-10); NRBC Flagged by Analyzer 0 % (0-5); Neutrophil # 5.05 X10^3/uL (2.7-7.7); Neutrophil % 90.9 % (47-70); POSITIVE DIFFERENTIAL YES; Platelet Count 109 K/mm3 (150-450); RBC Distribution Width CV 14.2 % (11.6-14.6); RBC Distribution Width SD 50.6 fl (35.1-43.9); Red Blood Count 3.65 M/mm3 (4.2-5.4); White Blood Count 5.6 K/mm3 (4.4-11.0)
[2021-11-29 02:34] LABS: Differential Indicated SCAN CRITERIA MET
[2021-11-29 02:56] LABS: Troponin-I HS 35 pg/mL (3.0-54.0)
[2021-11-29 03:04] LABS: Anion Gap 13 (5-15); BUN 23 mg/dL (7-18); BUN/Creat Ratio 15.6 RATIO (10-20); Calcium,Total 8.4 mg/dL (8.5-10.1); Chloride 105 mmol/L (98-107); Creatinine, Serum 1.47 mg/dL (0.55-1.02); EST Glomerular Filtration Rate 37 mL/min (>60); Est Glom Filt Rate - Afr Amer 45 mL/min (>60); Estimated Creatinine Clearance 32.04 ml/min; Glucose 412 mg/dL (74-106); Potassium 4.4 mmol/L (3.5-5.1); Sodium Level 136 mmol/L (136-145)
[2021-11-29] MEDS: Levothyroxine 25 MCG TABLET PO (06:35)
[2021-11-29 07:21] LABS: Bedside Glucose 422 mg/dL (70-110)
--- NOTE | 2021-11-29 07:28 | PN.HOSP_ITS ---
Objective Data Objective Data Vital Signs: Vital Signs Temp Pulse Resp BP Pulse Ox 97.5 F L 108 H 18 118/76 98 11/29/21 02:59 11/29/21 06:55 11/29/21 02:59 11/29/21 02:59 11/29/21 02:59 Oxygen Delivery Method Room Air Weight: 120 kg Body Mass Index (BMI) 44.0 Intake & Output: Intake and Output for Last 24 Hours 11/27/21 11/28/21 11/29/21 23:59 23:59 23:59 Intake Total 1695 / 1695 Output Total 100 / 100 Balance 1695 / 1695 -100 / -100 Lab / Micro Data Result Diagrams: 11/29/21 02:20 11/29/21 02:20 Labs: Laboratory Results - last 24 hr 11/28/21 16:40: WBC 9.6, RBC 4.06 L, Hgb 14.2, Hct 40.4, MCV 99.5 H, MCH 35.0 H, MCHC 35.1, RDW Std Deviation 52.5 H, RDW Coeff of Mahnaz 14.3, Plt Count 122 L, MPV 11.0, Immature Gran % (Auto) 0.400, Neut % (Auto) 60.7, Lymph % (Auto) 28.9, [place] % (Auto) 9.2, Eos % (Auto) 0.5, Baso % (Auto) 0.3, Absolute Neuts (auto) 5.8, Absolute Lymphs (auto) 2.77, Nucleated RBC % 0 11/28/21 16:40: D-Dimer Quant (PE/DVT) 3.62 H* 11/28/21 16:40: Sodium 140, Potassium 3.2 L, Chloride 106, Carbon Dioxide 24.0, Anion Gap 10, BUN 23 H, Creatinine 1.44 H, Estim Creat Clear Calc 32.71, Est GFR (MDRD) Af Amer 46 L, Est GFR (MDRD) Non-Af 38 L, BUN/Creatinine Ratio 16.0, Glucose 207 H, Calcium 9.0 11/28/21 16:40: Lactic Acid 2.5 H* 11/28/21 19:58: Troponin I High Sens 36 11/28/21 21:30: Lactic Acid 4.2 H* 11/28/21 23:50: POC Glucose 357 H 11/29/21 00:24: Troponin I High Sens 37 11/29/21 02:20: WBC 5.6, RBC 3.65 L, Hgb 12.4, Hct 35.3 L, MCV 96.7, MCH 34.0 H, MCHC 35.1, RDW Std Deviation 50.6 H, RDW Coeff of Mahnaz 14.2, Plt Count 109 L, MPV 10.8, Immature Gran % (Auto) 0.400, Neut % (Auto) 90.9 H, Lymph % (Auto) 7.6 L, [place] % (Auto) 0.9, Eos % (Auto) 0.0, Baso % (Auto) 0.2, Absolute Neuts (auto) 5.1, Absolute Lymphs (auto) 0.42 L, Nucleated RBC % 0 11/29/21 02:20: Sodium 136, Potassium 4.4, Chloride 105, Carbon Dioxide 18.0 L, Anion Gap 13, BUN 23 H, Creatinine 1.47 H, Estim Creat Clear Calc 32.04, Est GFR (MDRD) Af Amer 45 L, Est GFR (MDRD) Non-Af 37 L, BUN/Creatinine Ratio 15.6, Glucose 412 H, Calcium 8.4 L, Magnesium Cancelled 11/29/21 02:20: Troponin I High Sens 35 11/29/21 06:51: POC Glucose 422 H Micro: Microbiology 11/28/21 16:40 Nasal Secretion SARS-CoV-2 Antigen (Rapid) - Final Radiography Diagnostic Testing: Radiology Impression Chest X-Ray 11/28/21 16:55 IMPRESSION: Mild basilar atelectasis. Electronically Signed: Demetrius Duenas DO at 17:51 EST Reading Location ID and State: [facility] / [place] Tel [phone], Service support , Chest CTA 11/28/21 17:23 IMPRESSION: 1. Moderate volume acute pulmonary embolism. 2. Moderate chronic pulmonary tail hypertension, unreliable assessment for acute right heart strain. 3. Treated right lower lobe lung cancer. 4. Suboptimally evaluated lung parenchyma, recommend short-term repeat, possibly pneumonia or artifact. 5. Indeterminate sclerotic lesion in T12, refer to subsequent bone imaging. Electronically Signed: Susan Loyd MD at 19:32 EST , Assessment & Plan Assessment/Plan (1) Pulmonary emboli: QUALIFIERS: Pulmonary embolism type: other Chronicity: acute Acute cor pulmonale presence: unspecified Qualified Code(s): I26.99 - Other pulmonary embolism without acute cor pulmonale (2) Hypokalemia: (3) Wheezes: PLAN: Acute pulmonary embolism D-dimer on presentation was elevated at 3.62. Chest CTA image was visualized and independently interpreted. I agree with radiologist interpretation of moderate volume acute pulmonary embolism. Per radiologist lung parenchyma was suboptimally evaluated. Started on Eliquis at the emergency department and continued. Trend troponin. Trend lactic acid. Get bilateral Doppler since it could private branch exchange service advisor if patient has an occlusive clots that could be considered for thrombectomy in the setting of patient reporting of bilateral increase in her leg swelling. Started on Eliquis at the emergency department and continued. Echocardiogram ordered. Wheezes Received a Solu-Medrol and breathing treatment at the emergency department. Prednisone 40 mg daily ordered. Scheduled DuoNeb and as needed albuterol ordered. Scheduled Mucinex ordered.. Tessalon Perles ordered. Lactic acidosis Likely secondary to pulmonary embolism.With her pulmonary symptoms and no conclusive evidence of pneumonia/ septic shock will avoid fluid boluses at this time. Patient has no fever or white count elevation. Diabetes mellitus Patient with hyperglycemia on presentation Continue home basal insulin. Continue glipizide. Continue linagliptin. [employer] is on hold in the hospital setting. Anticipate blood glucose requirements will increase with steroids. Accu-Chek QA CHS with correction scale insulin ordered. Hypokalemia Potassium on presentation was 3.2. Received placement emergency department. Trend BMP. Continue home supplementation. Check magnesium. Hypertension Blood pressure is stable Home losartan and Lasix continued. Trend blood pressure and adjust blood pressure medications. Bilateral lower extremity swelling JER hose continued. Continue home Lasix. CKD stage IIIa Stable Trend BMP. DVT prophylaxis not indicated since patient has already been started on Eliquis for acute PE
[2021-11-29] MEDS: glipiZIDE 10 MG Tablet PO (08:43)
[2021-11-29] MEDS: Potassium Chloride Oral Tablet 10 MEQ PO (08:43)
[2021-11-29] MEDS: Furosemide 20 MG Tablet PO (08:43)
[2021-11-29] MEDS: predniSONE 20 MG Tablet 40 MG PO (08:43)
[2021-11-29] MEDS: APIXABAN 5 MG TABLET 10 MG PO ×2 (08:44→20:38)
[2021-11-29] MEDS: Losartan Potassium 100 MG Tablet PO (08:44)
[2021-11-29] MEDS: guaiFENesin 600 MG Tablet PO ×2 (08:44→20:38)
--- NOTE | 2021-11-29 09:25 | CASEMGMT ---
Patient is know to SCOTTIE from [facility] cancer treatment center. SCOTTIE has been talking with patient on phone regarding how she is coping. Last conversation was 11-24 and patient asked about home health. SCOTTIE called Odalys at [facility] and left her a message about setting this up. Patient is now in the hospital so SCOTTIE called Odalys at [facility] and left her a voice mail requesting a return call. Lisset SWENSON
--- NOTE | 2021-11-29 10:53 | PCM.PN.HOSP ---
Subjective Subjective Patient is a 71-year-old lady with history of non-small cell lung cancer adenocarcinoma type stage IIIA(pT1c pN2 M0) involving the right lower lobe, right ipsilateral para tracheal node and subcarinal node who presented with persistent cough. Imaging studies obtained on admission demonstrated There is acute pulmonary embolism bilaterally in the upper lobes and left lower lobe, moderate volume of thrombus, with visually estimated occlusive index of 30%. Started on systemic anticoagulation with Eliquis admitted to telemetry floor for further management Objective Data Objective Data Vital Signs: Vital Signs Temp Pulse Resp BP Pulse Ox 97.9 F 112 H 17 95/57 L 97 11/29/21 08:41 11/29/21 08:41 11/29/21 08:41 11/29/21 08:41 11/29/21 08:41 Oxygen Delivery Method Room Air Weight: 120 kg Body Mass Index (BMI) 44.0 Intake & Output: Intake and Output for Last 24 Hours 11/27/21 11/28/21 11/29/21 23:59 23:59 23:59 Intake Total 1695 / 1695 Output Total 100 / 100 Balance 1695 / 1695 -100 / -100 Lab / Micro Data Result Diagrams: 11/29/21 02:20 11/29/21 02:20 Labs: Laboratory Results - last 24 hr 11/28/21 16:40: WBC 9.6, RBC 4.06 L, Hgb 14.2, Hct 40.4, MCV 99.5 H, MCH 35.0 H, MCHC 35.1, RDW Std Deviation 52.5 H, RDW Coeff of Mahnaz 14.3, Plt Count 122 L, MPV 11.0, Immature Gran % (Auto) 0.400, Neut % (Auto) 60.7, Lymph % (Auto) 28.9, [place] % (Auto) 9.2, Eos % (Auto) 0.5, Baso % (Auto) 0.3, Absolute Neuts (auto) 5.8, Absolute Lymphs (auto) 2.77, Nucleated RBC % 0 11/28/21 16:40: D-Dimer Quant (PE/DVT) 3.62 H* 11/28/21 16:40: Sodium 140, Potassium 3.2 L, Chloride 106, Carbon Dioxide 24.0, Anion Gap 10, BUN 23 H, Creatinine 1.44 H, Estim Creat Clear Calc 32.71, Est GFR (MDRD) Af Amer 46 L, Est GFR (MDRD) Non-Af 38 L, BUN/Creatinine Ratio 16.0, Glucose 207 H, Calcium 9.0 11/28/21 16:40: Lactic Acid 2.5 H* 11/28/21 19:58: Troponin I High Sens 36 11/28/21 21:30: Lactic Acid 4.2 H* 11/28/21 23:50: POC Glucose 357 H 11/29/21 00:24: Troponin I High Sens 37 11/29/21 02:20: WBC 5.6, RBC 3.65 L, Hgb 12.4, Hct 35.3 L, MCV 96.7, MCH 34.0 H, MCHC 35.1, RDW Std Deviation 50.6 H, RDW Coeff of Mahnaz 14.2, Plt Count 109 L, MPV 10.8, Immature Gran % (Auto) 0.400, Neut % (Auto) 90.9 H, Lymph % (Auto) 7.6 L, [place] % (Auto) 0.9, Eos % (Auto) 0.0, Baso % (Auto) 0.2, Absolute Neuts (auto) 5.1, Absolute Lymphs (auto) 0.42 L, Nucleated RBC % 0 11/29/21 02:20: Sodium 136, Potassium 4.4, Chloride 105, Carbon Dioxide 18.0 L, Anion Gap 13, BUN 23 H, Creatinine 1.47 H, Estim Creat Clear Calc 32.04, Est GFR (MDRD) Af Amer 45 L, Est GFR (MDRD) Non-Af 37 L, BUN/Creatinine Ratio 15.6, Glucose 412 H, Calcium 8.4 L, Magnesium Cancelled 11/29/21 02:20: Troponin I High Sens 35 11/29/21 06:51: POC Glucose 422 H Micro: Microbiology 11/28/21 16:40 Nasal Secretion SARS-CoV-2 Antigen (Rapid) - Final Radiography Diagnostic Testing: Radiology Impression Chest X-Ray 11/28/21 16:55 IMPRESSION: Mild basilar atelectasis. Electronically Signed: Demetrius Duenas DO at 17:51 EST Reading Location ID and State: [facility] / [place] Tel [phone], Service support , Chest CTA 11/28/21 17:23 IMPRESSION: 1. Moderate volume acute pulmonary embolism. 2. Moderate chronic pulmonary tail hypertension, unreliable assessment for acute right heart strain. 3. Treated right lower lobe lung cancer. 4. Suboptimally evaluated lung parenchyma, recommend short-term repeat, possibly pneumonia or artifact. 5. Indeterminate sclerotic lesion in T12, refer to subsequent bone imaging. Electronically Signed: Susan Loyd MD at 19:32 EST , Physical Exam Narrative GENERAL: cooperative HEENT: Atraumatic; EYES; Anicteric, Normal Conjunctiva NECK; supple, normal thyroid, RESPIRATORY: Diminished to auscultation CARDIOVASCULAR: Regular S1 S2, GI: soft, normoactive bowel sounds, : No Renal angle tenderness; EXTREMITIES: edema, no clubbing, MUSCULOSKELETAL: no muscle wasting NEURO: Awake; no lateralizing signs. SKIN: No Rash PSYCH; Flat affect Assessment & Plan Assessment/Plan (1) Pulmonary emboli: QUALIFIERS: Pulmonary embolism type: other Chronicity: acute Acute cor pulmonale presence: unspecified Qualified Code(s): I26.99 - Other pulmonary embolism without acute cor pulmonale (2) Hypokalemia: (3) Wheezes: PLAN: Patient is a 71-year-old lady with history of non-small cell lung cancer adenocarcinoma type stage IIIA(pT1c pN2 M0) involving the right lower lobe, right ipsilateral para tracheal node and subcarinal node who presented with persistent cough. Imaging studies obtained on admission demonstrated There is acute pulmonary embolism bilaterally in the upper lobes and left lower lobe, moderate volume of thrombus, with visually estimated occlusive index of 30%. Started on systemic anticoagulation with Eliquis admitted to telemetry floor for further management 1. Acute pulmonary embolism ?CT obtained demonstrated There is acute pulmonary embolism bilaterally in the upper lobes and left lower lobe, moderate volume of thrombus, with visually estimated occlusive index of 30% patient started on systemic anticoagulation admitted to regular nursing for further management. As part of patient's management echo ordered for RV systolic function assessment. Patient was started on Eliquis from the ED did continue. Echo ordered for assessment of RV function 2. Lactic acidosis ?Due to increasing work of breathing as a result of patient PE no evidence of infectious etiology 3. Non-small cell lung cancer -adenocarcinoma type stage IIIA(pT1c pN2 M0) involving the right lower lobe, right ipsilateral para tracheal node and subcarinal node. Patient currently being managed by Dr Sahu as outpatient. 4. Diabetes mellitus type II -Patient blood glucose not well controlled with glucose level as high as 412. Patient's oral hypoglycemics held. Placed on long acting insulin, Accu-Cheks a.c. and at bedtime and covered with sliding scale insulin 5. Hypokalemia -Corrected per protocol. Repeat BMP is ordered for monitoring 6. Hypertension - Blood pressure controlled, home medications continued with dose adjustment as needed Seven. Class III obesity with BMI of forty-four ?Weight loss advised 8. CKD stage IIIa Patient at baseline, monitoring with daily BMPs Charges/Coding Visit Charges Inpatient E&M: 25005 Subs Hosp L3
[2021-11-29 11:41] LABS: Bedside Glucose 426 mg/dL (70-110)
--- NOTE | 2021-11-29 11:47 | CASEMGMT ---
BRYANNA CM in to complete GONZALES form with patient. BRYANNA CASRTO explained GONZALES form, patient voiced understanding. Patient signed GONZALES form and filed in chart. Patient provide with copy of signed GONZALES form. Patient had no further questions or concerns at this time.
--- NOTE | 2021-11-29 12:05 | CASEMGMT ---
Per therapy, pt would benefit from SNF short term. This RN CM to room and pt was provided a list of SNF and [facility] providers including quality and resource use data and consistent with the patient?s preferred geographic region, medical needs, and insurance network. CM to follow. Pt is agreeable to SNF for short term. SStaten RN CM
--- NOTE | 2021-11-29 14:08 | CASEMGMT ---
Per patient's RN patient would like [facility] vs [facility]. SW spoke with S[facility] in TCU and they are full. SW faxed referral to [facility]. SCOTTIE also called regarding referral. Await response. Lisset SWENSON
--- NOTE | 2021-11-29 14:46 | CHAPLAIN ---
Type of Pastoral Visit _x__ Initial Visit ___ Follow-up Visit ___ On-call Visit ___ General Patient Visit ___ Spiritual Assessment ___ Family Conference ___ Bereavement ___ Rapid Response ___ Code Blue ___ Other (describe below) Pastoral Care Referral From _x__ Patient ___ Family ___ Nurse ___ Physician ___ Statement Processor ___ Charcoal Kiln Burner ___ Other (describe below) Sacrament/Intervention _x__ Active listening ___ Anointing ___ Pentecostalism ___ Bereavement ___ Communion ___ Camille exploration ___ _x__ Life review _x__ Prayer ___ Reconciliation ___ Sacrament of Sick _x__ Supportive presence ___ Wedding ___ Other (describe below) Pastoral Comments patient was seen before in a previous admission and she remembers this plush weaver; pt explains her situation and her fear of going home too soon; pt wants to have therapy or rehab somewhere to feel more confident about going home; pt open to visits and prayer support
[2021-11-29 17:25] LABS: Bedside Glucose 434 mg/dL (70-110)
[2021-11-29] MEDS: Benzonatate 100 MG Capsule PO (19:31)
[2021-11-29] MEDS: Senna/Docusate Sodium 1 Tablet 2 TABLET PO (19:34)
[2021-11-29] MEDS: Pravastatin 40 MG Tablet PO (20:38)
[2021-11-29] MEDS: Allopurinol 300 MG Tablet PO (20:38)
[2021-11-29] MEDS: Insulin Lispro 100 UNIT/ML INSULN.PEN 15 UNIT SC (21:25)
[2021-11-29 21:59] LABS: Glucose > 500 mg/dL (74-106)
[2021-11-29 23:06] LABS: Bedside Glucose > 500 mg/dL (70-110)
[2021-11-30] VITALS (16 sets, daily range): BP systolic 88–120; BP diastolic 48–70; PULSE 100–126; RESP 16–24; TEMP 36.2–36.9; O2SAT 94–98
[2021-11-30] MEDS: Levothyroxine 25 MCG TABLET PO (03:12)
[2021-11-30] MEDS: Benzonatate 100 MG Capsule PO ×3 (03:12→16:37)
[2021-11-30 05:01] LABS: Bedside Glucose 430 mg/dL (70-110)
[2021-11-30] MEDS: Insulin Lispro 100 UNIT/ML INSULN.PEN SC ×5 (05:08→21:58)
[2021-11-30 05:27] LABS: Absolute Lymphocyte Count 0.74 X10^3/uL (0.83-4.51); Absolute Neutrophil Count 10.7 X10^3/uL (2.0-7.7); Basophil# 0.01 X10^3/uL; Basophil% 0.1 % (0-1); Hematocrit 35.9 % (37-47); Hemoglobin 12.2 g/dL (12.0-15.0); Lymphocyte # 0.74 X10^3/ul (0.83-4.51); Lymphocyte % 6.1 % (19-41); Mean Corpuscular Hgb 34.7 pg (27.0-32.0); Mean Platelet Vol. 10.7 fl (6.2-12.0); Monocyte# 0.56 X10^3/uL; Monocyte% 4.6 % (0-10); NRBC Flagged by Analyzer 0 % (0-5); Neutrophil # 10.69 X10^3/uL (2.7-7.7); Neutrophil % 88.4 % (47-70); Platelet Count 143 K/mm3 (150-450); RBC Distribution Width CV 14.8 % (11.6-14.6); RBC Distribution Width SD 55.6 fl (35.1-43.9); Red Blood Count 3.52 M/mm3 (4.2-5.4); White Blood Count 12.1 K/mm3 (4.4-11.0)
[2021-11-30 06:06] LABS: Anion Gap 10 (5-15); BUN 37 mg/dL (7-18); BUN/Creat Ratio 16.8 RATIO (10-20); Calcium,Total 9.1 mg/dL (8.5-10.1); Chloride 103 mmol/L (98-107); EST Glomerular Filtration Rate 23 mL/min (>60); Est Glom Filt Rate - Afr Amer 28 mL/min (>60); Estimated Creatinine Clearance 21.41 ml/min; Glucose 421 mg/dL (74-106); Potassium 4.4 mmol/L (3.5-5.1); Sodium Level 135 mmol/L (136-145)
[2021-11-30] MEDS: Ipratropium/Albuterol Sulfate 3 ML AMPUL.NEB INHALATION ×3 (07:07→19:18)
--- NOTE | 2021-11-30 07:10 | PN.HOSP_ITS ---
Subjective Subjective Patient seen has a persistent cough otherwise currently not requiring oxygen. Did discuss with patient about possibility of being discharged to [facility] facility patient is agreeable Objective Data Objective Data Vital Signs: Vital Signs Temp Pulse Resp BP Pulse Ox 98.5 F 105 H 16 96/65 95 11/30/21 03:20 11/30/21 03:20 11/30/21 03:20 11/30/21 03:20 11/30/21 03:20 Oxygen Delivery Method Room Air Weight: 120 kg Body Mass Index (BMI) 44.0 Intake & Output: Intake and Output for Last 24 Hours 11/28/21 11/29/21 11/30/21 23:59 23:59 23:59 Intake Total 1695 / 1695 1270 / 1270 220 / 220 Output Total 100 / 100 Balance 1695 / 1695 1170 / 1170 220 / 220 Lab / Micro Data Result Diagrams: 11/30/21 04:40 11/30/21 04:40 Labs: Laboratory Results - last 24 hr 11/29/21 06:51: POC Glucose 422 H 11/29/21 11:30: POC Glucose 426 H 11/29/21 17:14: POC Glucose 434 H 11/29/21 20:35: POC Glucose > 500 H* 11/29/21 21:24: Glucose > 500 H* 11/30/21 04:40: WBC 12.1 H, RBC 3.52 L, Hgb 12.2, Hct 35.9 L, MCV 102.0 H D, MCH 34.7 H, MCHC 34.0, RDW Std Deviation 55.6 H, RDW Coeff of Mahnaz 14.8 H, Plt Count 143 L, MPV 10.7, Immature Gran % (Auto) 0.800, Neut % (Auto) 88.4 H, Lymph % (Auto) 6.1 L, [place] % (Auto) 4.6, Eos % (Auto) 0.0, Baso % (Auto) 0.1, Absolute Neuts (auto) 10.7 H, Absolute Lymphs (auto) 0.74 L, Nucleated RBC % 0 11/30/21 04:40: Sodium 135 L, Potassium 4.4, Chloride 103, Carbon Dioxide 22.0, Anion Gap 10, BUN 37 H, Creatinine 2.20 H, Estim Creat Clear Calc 21.41, Est GFR (MDRD) Af Amer 28 L, Est GFR (MDRD) Non-Af 23 L, BUN/Creatinine Ratio 16.8, Gl ucose 421 H, Calcium 9.1 11/30/21 04:56: POC Glucose 430 H Micro: Microbiology 11/28/21 16:40 Nasal Secretion SARS-CoV-2 Antigen (Rapid) - Final Radiography Diagnostic Testing: Radiology Impression Echocardiogram 11/28/21 21:55 Interpretation Summary Normal LV size. Moderate eccentric left ventricular hypertrophy. Left ventricular systolic function is normal. The estimated ejection fraction is 65 %. Stage 1 diastolic dysfunction. Mild (1+) aortic valve insufficiency. Pulmonary artery systolic pressure is 40 mmHg. Ordering Physician: Esvin Marie Referring Physician: [facility] Performed By: Selma Olguin, DEBBI, RVT Physical Exam Narrative GENERAL: cooperative HEENT: Atraumatic; EYES; Anicteric, Normal Conjunctiva NECK; supple, normal thyroid, RESPIRATORY: Diminished to auscultation CARDIOVASCULAR: Regular S1 S2, GI: soft, normoactive bowel sounds, : No Renal angle tenderness; EXTREMITIES: edema, no clubbing, MUSCULOSKELETAL: no muscle wasting NEURO: Awake; no lateralizing signs. SKIN: No Rash PSYCH; Flat affect Assessment & Plan Assessment/Plan (1) Pulmonary emboli: QUALIFIERS: Acute cor pulmonale presence: unspecified Chronicity: acute Pulmonary embolism type: other Qualified Code(s): I26.99 - Other pulmonary embolism without acute cor pulmonale (2) Hypokalemia: (3) Wheezes: PLAN: Patient is a 71-year-old lady with history of non-small cell lung cancer adenocarcinoma type stage IIIA(pT1c pN2 M0) involving the right lower lobe, right ipsilateral para tracheal node and subcarinal node who presented with persistent cough. Imaging studies obtained on admission demonstrated There is acute pulmonary embolism bilaterally in the upper lobes and left lower lobe, moderate volume of thrombus, with visually estimated occlusive index of 30%. Started on systemic anticoagulation with Eliquis admitted to telemetry floor for further management 1. Acute pulmonary embolism ?CT obtained demonstrated There is acute pulmonary embolism bilaterally in the upper lobes and left lower lobe, moderate volume of thrombus, with visually estimated occlusive index of 30% patient started on systemic anticoagulation admitted to regular nursing for further management. As part of patient's management echo ordered for RV systolic function assessment. Patient was started on Eliquis from the ED did continue. Echo ordered for assessment of RV function -11/30/2021. On Eliquis 2. Lactic acidosis ?Due to increasing work of breathing as a result of patient PE no evidence of infectious etiology 3. Non-small cell lung cancer -adenocarcinoma type stage IIIA(pT1c pN2 M0) involving the right lower lobe, right ipsilateral para tracheal node and subcarinal node. Patient currently being managed by Dr Sahu as outpatient. 4. Diabetes mellitus type II -Patient blood glucose not well controlled with glucose level as high as 412. Patient's oral hypoglycemics held. Placed on long acting insulin, Accu-Cheks a.c. and at bedtime and covered with sliding scale insulin 5. Hypokalemia -Corrected per protocol. Repeat BMP is ordered for monitoring 6. Hypertension - Blood pressure controlled, home medications continued with dose adjustment as needed Seven. Class III obesity with BMI of forty-four ?Weight loss advised 8. CKD stage IIIa Patient at baseline, monitoring with daily BMPs 9. Physical deconditioning - Requested for PT OT eval and family welfare social work professor to assist with discharge planning Charges/Coding Visit Charges Inpatient E&M: 88836 Subs Hosp L2
[2021-11-30] MEDS: Losartan Potassium 100 MG Tablet PO (08:10)
[2021-11-30] MEDS: Furosemide 20 MG Tablet PO (08:10)
[2021-11-30] MEDS: Potassium Chloride Oral Tablet 10 MEQ PO (08:11)
[2021-11-30] MEDS: guaiFENesin 600 MG Tablet PO (08:11)
[2021-11-30] MEDS: glipiZIDE 10 MG Tablet PO (08:11)
[2021-11-30] MEDS: predniSONE 20 MG Tablet 40 MG PO (08:11)
[2021-11-30] MEDS: APIXABAN 5 MG TABLET 10 MG PO ×2 (08:11→21:51)
[2021-11-30 08:26] LABS: Bedside Glucose 310 mg/dL (70-110)
--- NOTE | 2021-11-30 09:11 | CASEMGMT ---
SCOTTIE received a call from [facility] and they can accept patient. Liza said she will need another COVID test. SW notified physician. SW went to notify patient, but she was getting a bath. SW will stop back by. Plan: d/c to [facility] under skilled level of care. Lisset Linares ROTARY ENVELOPE MACHINE OPERATOR MESSI
--- NOTE | 2021-11-30 09:57 | DS.PCM_ITS ---
Providers Date of Admission: 11/28/21 Primary Care Physician: [facility] Reason For Visit: PULMONARY EMBOLISM Diagnosis Discharge Diagnosis (1) Pulmonary emboli: Status: Acute Code(s): I26.99 - Other pulmonary embolism without acute cor pulmonale Qualifiers: Acute cor pulmonale presence: unspecified Chronicity: acute Pulmonary embolism type: other Qualified Code(s): I26.99 - Other pulmonary embolism without acute cor pulmonale (2) Hypokalemia: Status: Acute Code(s): E87.6 - Hypokalemia (3) Wheezes: Status: Acute Code(s): R06.2 - Wheezing Medications at Discharge Home Medications allopurinol 300 mg PO QHS 07/10/15 cholecalciferol (vitamin D3) 1,250 mcg (50,000 unit) capsule 50,000 unit PO CANO #12 cap 08/16/19 losartan 100 mg tablet 100 mg PO DAILY 08/16/19 pravastatin 40 mg tablet 40 mg PO QHS #90 tab 08/16/19 dulaglutide 1.5 mg/0.5 mL subcutaneous pen injector 1.5 mg SUBCUT CANO 04/20/21 amlodipine 10 mg tablet 10 mg PO DAILY 08/05/21 linagliptin 5 mg tablet 5 mg PO DAILY 08/09/21 lidocaine-prilocaine 2.5 %-2.5 % topical cream 1 applic TOPICAL ONCE PRN 30 Days #30 g 08/16/21 ondansetron 4 mg disintegrating tablet 4 mg PO Q8H PRN #30 tab 08/16/21 furosemide 20 mg PO DAILY 11/03/21 levothyroxine 25 mcg PO DAILY 11/03/21 potassium chloride 10 meq PO DAILY 11/28/21 Basaglar KwikPen U-100 Insulin 25 unit SUBCUT BIDAC #0 ml 11/30/21 acetaminophen [Tylenol] 650 mg PO Q6H PRN PRN #0 tab 11/30/21 albuterol sulfate 2.5 mg INHALATION Q2H PRN PRN #0 ml 11/30/21 apixaban [Eliquis] 10 mg PO BID #0 tab 11/30/21 benzonatate 100 mg PO Q4H PRN #0 cap 11/30/21 glucagon [GlucaGen Diagnostic Kit] 1 mg IM X1 PRN #0 ea 11/30/21 guaifenesin 10 ml PO Q4H PRN #0 ml 11/30/21 insulin lispro [Humalog KwikPen Insulin] See Protocol SUBCUT ACHS #0 ml 11/30/21 ipratropium-albuterol 3 ml INHALATION Q6HWA.RT #0 ml 11/30/21 melatonin 3 mg PO QHS #0 tab 11/30/21 prednisone 40 mg PO BREAKFAST #0 tab 11/30/21 sennosides-docusate sodium [Stool Softener-Stimulant Laxat] 2 tab PO BID PRN PRN #0 tab 11/30/21 Weight / BMI Weight Weight: 120 kg Body Mass Index (BMI) 44.0 ABG / Lab / Microbiology Data Result Diagrams: 11/30/21 04:40 11/30/21 04:40 Laboratory: Laboratory Results - last 24 hr 11/29/21 11:30: POC Glucose 426 H 11/29/21 17:14: POC Glucose 434 H 11/29/21 20:35: POC Glucose > 500 H* 11/29/21 21:24: Glucose > 500 H* 11/30/21 04:40: WBC 12.1 H, RBC 3.52 L, Hgb 12.2, Hct 35.9 L, MCV 102.0 H D, MCH 34.7 H, MCHC 34.0, RDW Std Deviation 55.6 H, RDW Coeff of Mahnaz 14.8 H, Plt Count 143 L, MPV 10.7, Immature Gran % (Auto) 0.800, Neut % (Auto) 88.4 H, Lymph % (Auto) 6.1 L, [place] % (Auto) 4.6, Eos % (Auto) 0.0, Baso % (Auto) 0.1, Absolute Neuts (auto) 10.7 H, Absolute Lymphs (auto) 0.74 L, Nucleated RBC % 0 11/30/21 04:40: Sodium 135 L, Potassium 4.4, Chloride 103, Carbon Dioxide 22.0, Anion Gap 10, BUN 37 H, Creatinine 2.20 H, Estim Creat Clear Calc 21.41, Est GFR (MDRD) Af Amer 28 L, Est GFR (MDRD) Non-Af 23 L, BUN/Creatinine Ratio 16.8, Glucose 421 H, Calcium 9.1 11/30/21 04:56: POC Glucose 430 H 11/30/21 08:00: POC Glucose 310 H Microbiology: Microbiology 11/28/21 16:40 Nasal Secretion SARS-CoV-2 Antigen (Rapid) - Final Radiography Diagnostic Testing: Radiology Impression Echocardiogram 11/28/21 21:55 Interpretation Summary Normal LV size. Moderate eccentric left ventricular hypertrophy. Left ventricular systolic function is normal. The estimated ejection fraction is 65 %. Stage 1 diastolic dysfunction. Mild (1+) aortic valve insufficiency. Pulmonary artery systolic pressure is 40 mmHg. Ordering Physician: Esvin Marie Referring Physician: [facility] Performed By: Selma Olguin RDCS, RVT D/C Instructions Discharge Diet: 1800 Calorie Control Diet Discharge Activity: Return to Normal Activity Call your doctor if you observe: Fever of 101 or Higher, Shortness of breath, Fainting spells and Chest pain Meaningful Use Info Meaningful Use Diagnoses (Choose all that apply): VTE VTE Anticoag overlap given w/in hospital stay or rx'd at [place]?: No Pt receive overlap for 5 days?: No Reason overlap not ordered, prescribed, or given for 5 days: Treatment Not Indicated Discharge Plan Admission Admit Date/Time: 11/28/21 21:12 Attending Provider: Vinny Andrade [facility]Prescriptions Prescriptions: New Eliquis 5 mg Tablet 10 mg PO BID Qty: 0 RF: 0 insulin lispro [Humalog KwikPen Insulin] 100 unit/mL Insulin Pen See Protocol unit subcut ACHS Qty: 0 RF: 0 ipratropium-albuterol 0.5 mg-3 mg(2.5 mg base)/3 mL Solution For Nebulization 3 ml inhalation Q6HWA.RT Qty: 0 RF: 0 prednisone 20 mg Tablet 40 mg PO BREAKFAST Qty: 0 RF: 0 sennosides-docusate sodium [Stool Softener-Stimulant Laxat] 8.6-50 mg Tablet 2 tab PO BID PRN PRN (Reason: Constipation) Qty: 0 RF: 0 melatonin 3 mg Tablet 3 mg PO QHS Qty: 0 RF: 0 guaifenesin 100 mg/5 mL Liquid 10 ml PO Q4H PRN (Reason: COUGH) Qty: 0 RF: 0 benzonatate 100 mg Capsule 100 mg PO Q4H PRN (Reason: COUGH) Qty: 0 RF: 0 GlucaGen Diagnostic Kit 1 mg/mL Recon Soln 1 mg IM X1 PRN (Reason: Hypoglycemia) Qty: 0 RF: 0 acetaminophen [Tylenol] 325 mg Tablet 650 mg PO Q6H PRN PRN (Reason: Pain Score 1-10/Temp > 100.7 F) Qty: 0 RF: 0 albuterol sulfate 2.5 mg /3 mL (0.083 %) Solution For Nebulization 2.5 mg inhalation Q2H PRN PRN (Reason: SOB/Wheezing) Qty: 0 RF: 0 Continued cholecalciferol (vitamin D3) 50,000 unit capsule 50,000 unit PO CANO Qty: 12 RF: 0 losartan 100 mg tablet 100 mg PO DAILY RF: 0 pravastatin 40 mg tablet 40 mg PO QHS Qty: 90 RF: 0 Trulicity 1.5 mg/0.5 mL pen injector 1.5 mg subcut CANO RF: 0 amlodipine 10 mg tablet 10 mg PO DAILY RF: 0 Tradjenta 5 mg tablet 5 mg PO DAILY RF: 0 lidocaine-prilocaine 2.5-2.5 % cream 1 applic topical ONCE PRN (Reason: port access) 30 Days Qty: 30 RF: 2 ondansetron 4 mg tablet,disintegrating 4 mg PO Q8H PRN (Reason: nausea and vomiting) Qty: 30 RF: 2 allopurinol 300 MG tablet 300 mg PO QHS RF: 0 levothyroxine 25 mcg tablet 25 mcg PO DAILY RF: 0 furosemide 20 mg tablet 20 mg PO DAILY RF: 0 potassium chloride 10 mEq Tablet Extended Release 10 meq PO DAILY RF: 0 Changed Basaglar KwikPen U-100 Insulin 100 unit/mL (3 mL) insulin pen 25 unit subcut BIDAC Qty: 0 RF: 0 Discontinued glipizide 10 mg tablet 10 mg PO DAILY RF: 0 [facility] [Primary Care Provider[facility] - Disposition Disposition (needs filled in before D/C Order can be placed): [facility] Charges/Coding Visit Charges OBSV E&M: 95002 Observation care discharge
--- NOTE | 2021-11-30 10:00 | CASEMGMT ---
SW met with patient, introduced self and role at [facility]. SW let patient know that [facility] can take her when she is ready. Lisset Linares MSW MESSI
--- NOTE | 2021-11-30 10:07 | PCM.TXEXTCAR ---
Diet 11/28/21 21:56 Diet: Cardiac: Calorie-Controlled Food consistency:: Regular Liquid Consistency:: Regular/Thin Dietary Modifications:: Consistent Carbohydrate Type of Dietary Supplement:: Ensure Clear Diet Comments: 120ml ensure clear TID w/ meals; extra 1-2 oz pro Q meal How many daily calories?: 2000 calorie Routine Orders/Code Status Code Status: Full Code Therapies Physical Therapy: Eval and Treat Occupational Therapy: Eval and Treat Problem/Diagnosis (1) Pulmonary emboli: Status: Acute (2) Hypokalemia: Status: Acute (3) Wheezes: Status: Acute Allergies/Procedures Done in Hospital Allergies No Known Allergies Allergy (Verified 11/28/21 14:57) Procedures: 2-D Echocardiogram Type of Care/Length of Stay Estimated LOS: Convalescent Care Less Than 30 days Type of Care Needed: Skilled Rehab Potential: Good Prognosis: Good Additional Orders/Day of Discharge Day of Discharge: 11/30/21 Dietary and Speech Recommendations Dietitian Recommendations/Changes: Will adjust diet to 2000 calorie/consistent carbohydrate; cardiac. Will add 120ml ensure clear TID w/ meals and 1-2 oz extra protein Q meal. Discharge Plan Admission Admit Date/Time: 11/28/21 21:12 Attending Provider: Vinny Andrade [facility] Orders/Prescriptions Prescriptions: New Eliquis 5 mg Tablet 10 mg PO BID Qty: 0 RF: 0 insulin lispro [Humalog KwikPen Insulin] 100 unit/mL Insulin Pen See Protocol unit subcut ACHS Qty: 0 RF: 0 ipratropium-albuterol 0.5 mg-3 mg(2.5 mg base)/3 mL Solution For Nebulization 3 ml inhalation Q6HWA.RT Qty: 0 RF: 0 prednisone 20 mg Tablet 40 mg PO BREAKFAST Qty: 0 RF: 0 sennosides-docusate sodium [Stool Softener-Stimulant Laxat] 8.6-50 mg Tablet 2 tab PO BID PRN PRN (Reason: Constipation) Qty: 0 RF: 0 melatonin 3 mg Tablet 3 mg PO QHS Qty: 0 RF: 0 guaifenesin 100 mg/5 mL Liquid 10 ml PO Q4H PRN (Reason: COUGH) Qty: 0 RF: 0 benzonatate 100 mg Capsule 100 mg PO Q4H PRN (Reason: COUGH) Qty: 0 RF: 0 GlucaGen Diagnostic Kit 1 mg/mL Recon Soln 1 mg IM X1 PRN (Reason: Hypoglycemia) Qty: 0 RF: 0 acetaminophen [Tylenol] 325 mg Tablet 650 mg PO Q6H PRN PRN (Reason: Pain Score 1-10/Temp > 100.7 F) Qty: 0 RF: 0 albuterol sulfate 2.5 mg /3 mL (0.083 %) Solution For Nebulization 2.5 mg inhalation Q2H PRN PRN (Reason: SOB/Wheezing) Qty: 0 RF: 0 Continued cholecalciferol (vitamin D3) 50,000 unit capsule 50,000 unit PO CANO Qty: 12 RF: 0 losartan 100 mg tablet 100 mg PO DAILY RF: 0 pravastatin 40 mg tablet 40 mg PO QHS Qty: 90 RF: 0 Trulicity 1.5 mg/0.5 mL pen injector 1.5 mg subcut CANO RF: 0 amlodipine 10 mg tablet 10 mg PO DAILY RF: 0 Tradjenta 5 mg tablet 5 mg PO DAILY RF: 0 lidocaine-prilocaine 2.5-2.5 % cream 1 applic topical ONCE PRN (Reason: port access) 30 Days Qty: 30 RF: 2 ondansetron 4 mg tablet,disintegrating 4 mg PO Q8H PRN (Reason: nausea and vomiting) Qty: 30 RF: 2 allopurinol 300 MG tablet 300 mg PO QHS RF: 0 levothyroxine 25 mcg tablet 25 mcg PO DAILY RF: 0 furosemide 20 mg tablet 20 mg PO DAILY RF: 0 potassium chloride 10 mEq Tablet Extended Release 10 meq PO DAILY RF: 0 Changed Basaglar KwikPen U-100 Insulin 100 unit/mL (3 mL) insulin pen 25 unit subcut BIDAC Qty: 0 RF: 0 Discontinued glipizide 10 mg tablet 10 mg PO DAILY RF: 0 [facility] - Disposition Disposition (needs filled in before D/C Order can be placed): [facility]
--- NOTE | 2021-11-30 10:30 | CASEMGMT ---
Physician canceled patient's discharge due to rising creatinine. SW called Liza at [facility] and let her know this information. Plan: d/c to [facility] under skilled level of care when medically ready. Lisset SWENSON
[2021-11-30] MEDS: Senna/Docusate Sodium 1 Tablet 2 TABLET PO (11:04)
[2021-11-30] MEDS: 0.9% Normal Saline 1,000 ML 125 ML IV ×2 (11:05→20:16)
[2021-11-30] MEDS: Insulin Lispro 100 UNIT/ML INSULN.PEN 10 UNIT SC ×2 (11:06→16:04)
[2021-11-30] MEDS: amLODIPine 10 MG Tablet PO (11:08)
[2021-11-30 11:21] LABS: Bedside Glucose 283 mg/dL (70-110)
[2021-11-30 12:31] LABS: MG Sendout 1.6 mg/dL (1.6-2.3)
[2021-11-30 17:06] LABS: Bedside Glucose 406 mg/dL (70-110)
[2021-11-30] MEDS: MELATONIN 3 MG TABLET PO (21:52)
[2021-11-30] MEDS: Allopurinol 300 MG Tablet PO (21:52)
[2021-11-30] MEDS: Pravastatin 40 MG Tablet PO (21:53)
[2021-11-30 22:05] LABS: Bedside Glucose 392 mg/dL (70-110)
[2021-11-30] MEDS: 0.9% Saline Lock 10 ML Syringe IV (22:06)
[2021-12-01] MEDS: guaiFENesin 10 ML UDC (200MG/10ML) PO ×2 (01:06→05:28)
[2021-12-01 03:00] VITALS: PULSE 97
[2021-12-01] MEDS: 0.9% Normal Saline 1,000 ML 125 ML IV (04:07)
[2021-12-01 04:15] VITALS: BP 96/63; PULSE 93; RESP 16; TEMP 36.4; O2SAT 96
[2021-12-01] MEDS: Levothyroxine 25 MCG TABLET PO (05:28)
[2021-12-01 06:07] LABS: Absolute Lymphocyte Count 0.92 X10^3/uL (0.83-4.51); Absolute Neutrophil Count 7.3 X10^3/uL (2.0-7.7); Basophil# 0.01 X10^3/uL; Basophil% 0.1 % (0-1); Eosinophil# 0.02 X10^3/uL; Eosinophils% 0.2 % (0-5); Hemoglobin 12.7 g/dL (12.0-15.0); Lymphocyte # 0.92 X10^3/ul (0.83-4.51); Lymphocyte % 10.3 % (19-41); Mean Corp Hgb Conc 36.3 g/dL (32-36); Mean Corpuscular Hgb 35.2 pg (27.0-32.0); Mean Platelet Vol. 10.9 fl (6.2-12.0); Monocyte# 0.53 X10^3/uL; Monocyte% 5.9 % (0-10); NRBC Flagged by Analyzer 0 % (0-5); Neutrophil # 7.32 X10^3/uL (2.7-7.7); Neutrophil % 82.3 % (47-70); Platelet Count 130 K/mm3 (150-450); RBC Distribution Width CV 14.5 % (11.6-14.6); RBC Distribution Width SD 51.6 fl (35.1-43.9); Red Blood Count 3.61 M/mm3 (4.2-5.4); White Blood Count 8.9 K/mm3 (4.4-11.0)
[2021-12-01 06:59] VITALS: PULSE 96
[2021-12-01 07:01] VITALS: PULSE 102; RESP 20; O2SAT 95
[2021-12-01] MEDS: Ipratropium/Albuterol Sulfate 3 ML AMPUL.NEB INHALATION (07:01)
[2021-12-01 07:03] LABS: Anion Gap 8 (5-15); BUN 40 mg/dL (7-18); BUN/Creat Ratio 24.4 RATIO (10-20); Calcium,Total 8.5 mg/dL (8.5-10.1); Chloride 108 mmol/L (98-107); Creatinine, Serum 1.64 mg/dL (0.55-1.02); EST Glomerular Filtration Rate 33 mL/min (>60); Est Glom Filt Rate - Afr Amer 40 mL/min (>60); Estimated Creatinine Clearance 28.72 ml/min; Glucose 201 mg/dL (74-106); Potassium 3.9 mmol/L (3.5-5.1); Sodium Level 138 mmol/L (136-145)
[2021-12-01] MEDS: Potassium Chloride Oral Tablet 10 MEQ PO (07:39)
[2021-12-01] MEDS: predniSONE 20 MG Tablet 40 MG PO (07:39)
[2021-12-01] MEDS: Benzonatate 100 MG Capsule PO (07:39)
[2021-12-01] MEDS: APIXABAN 5 MG TABLET 10 MG PO (07:40)
[2021-12-01] MEDS: Insulin Lispro 100 UNIT/ML INSULN.PEN 10 UNIT SC (07:40)
[2021-12-01] MEDS: Insulin Lispro 100 UNIT/ML INSULN.PEN SC (07:41)
--- NOTE | 2021-12-01 07:41 | PCM.PN.HOSP ---
Subjective Subjective Patient discharged the day prior was discontinued following worsening of kidney function. She was placed on IV fluid. Kidney function did improve. Plans for [facility] be [facility] Objective Data Objective Data Vital Signs: Vital Signs Temp Pulse Resp BP Pulse Ox 97.5 F L 93 16 96/63 96 12/01/21 04:15 12/01/21 04:15 12/01/21 04:15 12/01/21 04:15 12/01/21 04:15 Oxygen Delivery Method Room Air Weight: 120 kg Body Mass Index (BMI) 44.0 Intake & Output: Intake and Output for Last 24 Hours 11/29/21 11/30/21 12/01/21 23:59 23:59 23:59 Intake Total 1270 / 1270 2760.00 / 3160.00 1681.25 / 1681.25 Output Total 100 / 100 200 / 200 500 / 500 Balance 1170 / 1170 2560.00 / 2960.00 1181.25 / 1181.25 Lab / Micro Data Result Diagrams: 12/01/21 05:25 12/01/21 05:25 Labs: Laboratory Results - last 24 hr 11/29/21 02:20: Magnesium 1.6 11/30/21 08:00: POC Glucose 310 H 11/30/21 11:00: POC Glucose 283 H 11/30/21 16:02: POC Glucose 406 H 11/30/21 21:56: POC Glucose 392 H 12/01/21 05:25: WBC 8.9, RBC 3.61 L, Hgb 12.7, Hct 35.0 L, MCV 97.0, MCH 35.2 H, MCHC 36.3 H D, RDW Std Deviation 51.6 H, RDW Coeff of Mahnaz 14.5, Plt Count 130 L, MPV 10.9, Immature Gran % (Auto) 1.200 H, Neut % (Auto) 82.3 H, Lymph % (Auto) 10.3 L, [place] % (Auto) 5.9, Eos % (Auto) 0.2, Baso % (Auto) 0.1, Absolute Neuts (auto) 7.3, Absolute Lymphs (auto) 0.92, Nucleated RBC % 0 12/01/21 05:25: Sodium 138, Potassium 3.9, Chloride 108 H, Carbon Dioxide 22.0, Anion Gap 8, BUN 40 H, Creatinine 1.64 H, Estim Creat Clear Calc 28.72, Est GFR (MDRD) Af Amer 40 L, Est GFR (MDRD) Non-Af 33 L, BUN/Creatinine Ratio 24.4 H, Glucose 201 H, Calcium 8.5 Micro: Microbiology 11/28/21 18:00 Blood Culture (Wb) - Left Hand Blood Culture - Preliminary No growth in 48 hours. 11/28/21 16:40 Blood Culture (Wb) - Port Blood Culture - Preliminary No growth in 48 hours. 11/30/21 09:25 Nasal Secretion SARS-CoV-2 Antigen (Rapid) - Final 11/28/21 16:40 Nasal Secretion SARS-CoV-2 Antigen (Rapid) - Final Physical Exam Narrative GENERAL: cooperative HEENT: Atraumatic; EYES; Anicteric, Normal Conjunctiva NECK; supple, normal thyroid, RESPIRATORY: Diminished to auscultation CARDIOVASCULAR: Regular S1 S2, GI: soft, normoactive bowel sounds, : No Renal angle tenderness; EXTREMITIES: No edema, no clubbing, MUSCULOSKELETAL: no muscle wasting NEURO: Awake; no lateralizing signs. SKIN: No Rash PSYCH; Flat affect Assessment & Plan Assessment/Plan (1) Pulmonary emboli: QUALIFIERS: Acute cor pulmonale presence: unspecified Chronicity: acute Pulmonary embolism type: other Qualified Code(s): I26.99 - Other pulmonary embolism without acute cor pulmonale (2) Hypokalemia: (3) Wheezes: PLAN: Patient is a 71-year-old lady with history of non-small cell lung cancer adenocarcinoma type stage IIIA(pT1c pN2 M0) involving the right lower lobe, right ipsilateral para tracheal node and subcarinal node who presented with persistent cough. Imaging studies obtained on admission demonstrated There is acute pulmonary embolism bilaterally in the upper lobes and left lower lobe, moderate volume of thrombus, with visually estimated occlusive index of 30%. Started on systemic anticoagulation with Eliquis admitted to telemetry floor for further management 1. Acute pulmonary embolism ?CT obtained demonstrated There is acute pulmonary embolism bilaterally in the upper lobes and left lower lobe, moderate volume of thrombus, with visually estimated occlusive index of 30% patient started on systemic anticoagulation admitted to regular nursing for further management. As part of patient's management echo ordered for RV systolic function assessment. Patient was started on Eliquis from the ED did continue. Echo ordered for assessment of RV function -11/30/2021. On Eliquis 2. Lactic acidosis ?Due to increasing work of breathing as a result of patient PE no evidence of infectious etiology 3. Non-small cell lung cancer -adenocarcinoma type stage IIIA(pT1c pN2 M0) involving the right lower lobe, right ipsilateral para tracheal node and subcarinal node. Patient currently being managed by Dr Sahu as outpatient. 4. Diabetes mellitus type II -Patient blood glucose not well controlled with glucose level as high as 412. Patient's oral hypoglycemics held. Placed on long acting insulin, Accu-Cheks a.c. and at bedtime and covered with sliding scale insulin 5. Hypokalemia -Corrected per protocol. Repeat BMP is ordered for monitoring 6. Hypertension - Blood pressure controlled, home medications continued with dose adjustment as needed Seven. Class III obesity with BMI of forty-four ?Weight loss advised 8. CKD stage IIIa Patient at baseline, monitoring with daily BMPs ?12/01/2021 kidney function did worsen the day before managed with IV fluid. 9. Physical deconditioning - Requested for PT OT eval and nursing home social worker to assist with discharge planning Charges/Coding Visit Charges Inpatient E&M: 54457 Subs Hosp L2
[2021-12-01 07:50] LABS: Bedside Glucose 163 mg/dL (70-110)
--- NOTE | 2021-12-01 08:42 | PCM.TXEXTCAR ---
Diet 11/28/21 21:56 Diet: Cardiac: Calorie-Controlled Food consistency:: Regular Liquid Consistency:: Regular/Thin Dietary Modifications:: Consistent Carbohydrate Type of Dietary Supplement:: Ensure Clear Diet Comments: 120ml ensure clear TID w/ meals; extra 1-2 oz pro Q meal How many daily calories?: 2000 calorie Routine Orders/Code Status Code Status: Full Code Therapies Physical Therapy: Eval and Treat Occupational Therapy: Eval and Treat Problem/Diagnosis (1) Pulmonary emboli: Status: Acute (2) Hypokalemia: Status: Acute (3) Wheezes: Status: Acute Allergies/Procedures Done in Hospital Allergies No Known Allergies Allergy (Verified 11/28/21 14:57) Procedures: 2-D Echocardiogram Type of Care/Length of Stay Estimated LOS: Convalescent Care Less Than 30 days Type of Care Needed: Skilled Rehab Potential: Good Prognosis: Good Additional Orders/Day of Discharge Day of Discharge: 11/30/21 Dietary and Speech Recommendations Dietitian Recommendations/Changes: Will adjust diet to 2000 calorie/consistent carbohydrate; cardiac. Will add 120ml ensure clear TID w/ meals and 1-2 oz extra protein Q meal. Discharge Plan Admission Admit Date/Time: 11/30/21 10:28 Attending Provider: Vinny Andrade [facility] Orders/Prescriptions Prescriptions: New Eliquis 5 mg Tablet 10 mg PO BID Qty: 0 RF: 0 insulin lispro [Humalog KwikPen Insulin] 100 unit/mL Insulin Pen See Protocol unit subcut ACHS Qty: 0 RF: 0 ipratropium-albuterol 0.5 mg-3 mg(2.5 mg base)/3 mL Solution For Nebulization 3 ml inhalation Q6HWA.RT Qty: 0 RF: 0 prednisone 20 mg Tablet 40 mg PO BREAKFAST Qty: 0 RF: 0 sennosides-docusate sodium [Stool Softener-Stimulant Laxat] 8.6-50 mg Tablet 2 tab PO BID PRN PRN (Reason: Constipation) Qty: 0 RF: 0 melatonin 3 mg Tablet 3 mg PO QHS Qty: 0 RF: 0 guaifenesin 100 mg/5 mL Liquid 10 ml PO Q4H PRN (Reason: COUGH) Qty: 0 RF: 0 benzonatate 100 mg Capsule 100 mg PO Q4H PRN (Reason: COUGH) Qty: 0 RF: 0 GlucaGen Diagnostic Kit 1 mg/mL Recon Soln 1 mg IM X1 PRN (Reason: Hypoglycemia) Qty: 0 RF: 0 acetaminophen [Tylenol] 325 mg Tablet 650 mg PO Q6H PRN PRN (Reason: Pain Score 1-10/Temp > 100.7 F) Qty: 0 RF: 0 albuterol sulfate 2.5 mg /3 mL (0.083 %) Solution For Nebulization 2.5 mg inhalation Q2H PRN PRN (Reason: SOB/Wheezing) Qty: 0 RF: 0 Continued cholecalciferol (vitamin D3) 50,000 unit capsule 50,000 unit PO CANO Qty: 12 RF: 0 pravastatin 40 mg tablet 40 mg PO QHS Qty: 90 RF: 0 Trulicity 1.5 mg/0.5 mL pen injector 1.5 mg subcut CANO RF: 0 Tradjenta 5 mg tablet 5 mg PO DAILY RF: 0 lidocaine-prilocaine 2.5-2.5 % cream 1 applic topical ONCE PRN (Reason: port access) 30 Days Qty: 30 RF: 2 ondansetron 4 mg tablet,disintegrating 4 mg PO Q8H PRN (Reason: nausea and vomiting) Qty: 30 RF: 2 allopurinol 300 MG tablet 300 mg PO QHS RF: 0 levothyroxine 25 mcg tablet 25 mcg PO DAILY RF: 0 furosemide 20 mg tablet 20 mg PO DAILY RF: 0 potassium chloride 10 mEq Tablet Extended Release 10 meq PO DAILY RF: 0 Changed Basaglar KwikPen U-100 Insulin 100 unit/mL (3 mL) insulin pen 25 unit subcut BIDAC Qty: 0 RF: 0 Discontinued losartan 100 mg tablet 100 mg PO DAILY RF: 0 glipizide 10 mg tablet 10 mg PO DAILY RF: 0 amlodipine 10 mg tablet 10 mg PO DAILY RF: 0 [facility] -
[2021-12-01 09:52] VITALS: BP 103/55; PULSE 123; RESP 18; TEMP 36.4; O2SAT 100
[2021-12-01] MEDS: 0.9% Saline Lock 10 ML Syringe IV (09:52)
--- NOTE | 2021-12-01 09:52 | DS.PCM_ITS ---
Providers Date of Admission: 11/30/21 Primary Care Physician: [facility] Reason For Visit: PULMONARY EMBOLISM Diagnosis Discharge Diagnosis (1) Pulmonary emboli: Status: Acute Code(s): I26.99 - Other pulmonary embolism without acute cor pulmonale Qualifiers: Pulmonary embolism type: other Chronicity: acute Acute cor pulmonale presence: unspecified Qualified Code(s): I26.99 - Other pulmonary embolism without acute cor pulmonale (2) Hypokalemia: Status: Acute Code(s): E87.6 - Hypokalemia (3) Wheezes: Status: Acute Code(s): R06.2 - Wheezing Medications at Discharge Home Medications allopurinol 300 mg PO QHS 07/10/15 cholecalciferol (vitamin D3) 1,250 mcg (50,000 unit) capsule 50,000 unit PO CANO #12 cap 08/16/19 pravastatin 40 mg tablet 40 mg PO QHS #90 tab 08/16/19 dulaglutide 1.5 mg/0.5 mL subcutaneous pen injector 1.5 mg SUBCUT CANO 04/20/21 linagliptin 5 mg tablet 5 mg PO DAILY 08/09/21 lidocaine-prilocaine 2.5 %-2.5 % topical cream 1 applic TOPICAL ONCE PRN 30 Days #30 g 08/16/21 ondansetron 4 mg disintegrating tablet 4 mg PO Q8H PRN #30 tab 08/16/21 furosemide 20 mg PO DAILY 11/03/21 levothyroxine 25 mcg PO DAILY 11/03/21 potassium chloride 10 meq PO DAILY 11/28/21 Basaglar KwikPen U-100 Insulin 25 unit SUBCUT BIDAC #0 ml 11/30/21 acetaminophen [Tylenol] 650 mg PO Q6H PRN PRN #0 tab 11/30/21 albuterol sulfate 2.5 mg INHALATION Q2H PRN PRN #0 ml 11/30/21 apixaban [Eliquis] 10 mg PO BID #0 tab 11/30/21 benzonatate 100 mg PO Q4H PRN #0 cap 11/30/21 glucagon [GlucaGen Diagnostic Kit] 1 mg IM X1 PRN #0 ea 11/30/21 guaifenesin 10 ml PO Q4H PRN #0 ml 11/30/21 insulin lispro [Humalog KwikPen Insulin] See Protocol SUBCUT ACHS #0 ml 11/30/21 ipratropium-albuterol 3 ml INHALATION Q6HWA.RT #0 ml 11/30/21 melatonin 3 mg PO QHS #0 tab 11/30/21 prednisone 40 mg PO BREAKFAST #0 tab 11/30/21 sennosides-docusate sodium [Stool Softener-Stimulant Laxat] 2 tab PO BID PRN PRN #0 tab 11/30/21 Hospital Course Summary of Care Provided Minutes Spent on Discharge: 35 Hospital Course: 1. Acute pulmonary embolism ?CT obtained demonstrated There is acute pulmonary embolism bilaterally in the upper lobes and left lower lobe, moderate volume of thrombus, with visually estimated occlusive index of 30% patient started on systemic anticoagulation admitted to regular nursing for further management. As part of patient's management echo ordered for RV systolic function assessment. Patient was started on Eliquis from the ED did continue. Echo ordered for assessment of RV function -11/30/2021. On Eliquis 2. Lactic acidosis ?Due to increasing work of breathing as a result of patient PE no evidence of infectious etiology 3. Non-small cell lung cancer -adenocarcinoma type stage IIIA(pT1c pN2 M0) involving the right lower lobe, right ipsilateral para tracheal node and subcarinal node. Patient currently being managed by Dr Sahu as outpatient. 4. Diabetes mellitus type II -Patient blood glucose not well controlled with glucose level as high as 412. Patient's oral hypoglycemics held. Placed on long acting insulin, Accu-Cheks a.c. and at bedtime and covered with sliding scale insulin 5. Hypokalemia -Corrected per protocol. Repeat BMP is ordered for monitoring 6. Hypertension - Blood pressure controlled, home medications continued with dose adjustment as needed Seven. Class III obesity with BMI of forty-four ?Weight loss advised 8. CKD stage IIIa Patient at baseline, monitoring with daily BMPs ?12/01/2021 kidney function did worsen the day before managed with IV fluid. 9. Physical deconditioning - Requested for PT OT eval and protective services social worker to assist with discharge planning Physical Exam Narrative GENERAL: cooperative HEENT: Atraumatic; EYES; Anicteric, Normal Conjunctiva NECK; supple, normal thyroid, RESPIRATORY: Diminished to auscultation CARDIOVASCULAR: Regular S1 S2, GI: soft, normoactive bowel sounds, : No Renal angle tenderness; EXTREMITIES: No edema, no clubbing, MUSCULOSKELETAL: no muscle wasting NEURO: Awake; no lateralizing signs. SKIN: No Rash PSYCH; Flat affect Weight / BMI Weight Weight: 120 kg Body Mass Index (BMI) 44.0 ABG / Lab / Microbiology Data Result Diagrams: 12/01/21 05:25 12/01/21 05:25 Laboratory: Laboratory Results - last 24 hr 11/29/21 02:20: Magnesium 1.6 11/30/21 11:00: POC Glucose 283 H 11/30/21 16:02: POC Glucose 406 H 11/30/21 21:56: POC Glucose 392 H 12/01/21 05:25: WBC 8.9, RBC 3.61 L, Hgb 12.7, Hct 35.0 L, MCV 97.0, MCH 35.2 H, MCHC 36.3 H D, RDW Std Deviation 51.6 H, RDW Coeff of Mahnaz 14.5, Plt Count 130 L, MPV 10.9, Immature Gran % (Auto) 1.200 H, Neut % (Auto) 82.3 H, Lymph % (Auto) 10.3 L, [place] % (Auto) 5.9, Eos % (Auto) 0.2, Baso % (Auto) 0.1, Absolute Neuts (auto) 7.3, Absolute Lymphs (auto) 0.92, Nucleated RBC % 0 12/01/21 05:25: Sodium 138, Potassium 3.9, Chloride 108 H, Carbon Dioxide 22.0, Anion Gap 8, BUN 40 H, Creatinine 1.64 H, Estim Creat Clear Calc 28.72, Est GFR (MDRD) Af Amer 40 L, Est GFR (MDRD) Non-Af 33 L, BUN/Creatinine Ratio 24.4 H, Glucose 201 H, Calcium 8.5 12/01/21 07:29: POC Glucose 163 H Microbiology: Microbiology 11/28/21 18:00 Blood Culture (Wb) - Left Hand Blood Culture - Preliminary No growth in 48 hours. 11/28/21 16:40 Blood Culture (Wb) - Port Blood Culture - Preliminary No growth in 48 hours. 11/30/21 09:25 Nasal Secretion SARS-CoV-2 Antigen (Rapid) - Final 11/28/21 16:40 Nasal Secretion SARS-CoV-2 Antigen (Rapid) - Final D/C Instructions Discharge Diet: 1800 Calorie Control Diet Discharge Activity: Return to Normal Activity Call your doctor if you observe: Fever of 101 or Higher, Shortness of breath, Fainting spells and Chest pain Meaningful Use Info Meaningful Use Diagnoses (Choose all that apply): VTE VTE Anticoag overlap given w/in hospital stay or rx'd at in?: No Pt receive overlap for 5 days?: No Reason overlap not ordered, prescribed, or given for 5 days: Treatment Not Indicated Discharge Plan Admission Admit Date/Time: 11/30/21 10:28 Attending Provider: Vinny Andrade [facility] Orders/Prescriptions Prescriptions: New Eliquis 5 mg Tablet 10 mg PO BID Qty: 0 RF: 0 insulin lispro [Humalog KwikPen Insulin] 100 unit/mL Insulin Pen See Protocol unit subcut ACHS Qty: 0 RF: 0 ipratropium-albuterol 0.5 mg-3 mg(2.5 mg base)/3 mL Solution For Nebulization 3 ml inhalation Q6HWA.RT Qty: 0 RF: 0 prednisone 20 mg Tablet 40 mg PO BREAKFAST Qty: 0 RF: 0 sennosides-docusate sodium [Stool Softener-Stimulant Laxat] 8.6-50 mg Tablet 2 tab PO BID PRN PRN (Reason: Constipation) Qty: 0 RF: 0 melatonin 3 mg Tablet 3 mg PO QHS Qty: 0 RF: 0 guaifenesin 100 mg/5 mL Liquid 10 ml PO Q4H PRN (Reason: COUGH) Qty: 0 RF: 0 benzonatate 100 mg Capsule 100 mg PO Q4H PRN (Reason: COUGH) Qty: 0 RF: 0 GlucaGen Diagnostic Kit 1 mg/mL Recon Soln 1 mg IM X1 PRN (Reason: Hypoglycemia) Qty: 0 RF: 0 acetaminophen [Tylenol] 325 mg Tablet 650 mg PO Q6H PRN PRN (Reason: Pain Score 1-10/Temp > 100.7 F) Qty: 0 RF: 0 albuterol sulfate 2.5 mg /3 mL (0.083 %) Solution For Nebulization 2.5 mg inhalation Q2H PRN PRN (Reason: SOB/Wheezing) Qty: 0 RF: 0 Continued cholecalciferol (vitamin D3) 50,000 unit capsule 50,000 unit PO CANO Qty: 12 RF: 0 pravastatin 40 mg tablet 40 mg PO QHS Qty: 90 RF: 0 Trulicity 1.5 mg/0.5 mL pen injector 1.5 mg subcut CANO RF: 0 Tradjenta 5 mg tablet 5 mg PO DAILY RF: 0 lidocaine-prilocaine 2.5-2.5 % cream 1 applic topical ONCE PRN (Reason: port access) 30 Days Qty: 30 RF: 2 ondansetron 4 mg tablet,disintegrating 4 mg PO Q8H PRN (Reason: nausea and vomiting) Qty: 30 RF: 2 allopurinol 300 MG tablet 300 mg PO QHS RF: 0 levothyroxine 25 mcg tablet 25 mcg PO DAILY RF: 0 furosemide 20 mg tablet 20 mg PO DAILY RF: 0 potassium chloride 10 mEq Tablet Extended Release 10 meq PO DAILY RF: 0 Changed Basaglar KwikPen U-100 Insulin 100 unit/mL (3 mL) insulin pen 25 unit subcut BIDAC Qty: 0 RF: 0 Discontinued losartan 100 mg tablet 100 mg PO DAILY RF: 0 glipizide 10 mg tablet 10 mg PO DAILY RF: 0 amlodipine 10 mg tablet 10 mg PO DAILY RF: 0 [facility] - Disposition Disposition (needs filled in before D/C Order can be placed): Long Term Facility Charges/Coding Visit Charges Inpatient E&M: 42528 Disch Hosp
--- NOTE | 2021-12-01 09:53 | CASEMGMT ---
Patient is ready for discharge to [facility]. SCOTTIE spoke with Liza and patient does not need another COVID test. SCOTTIE arranged for patient to get picked up at 11a via [employer] van. SCOTTIE faxed orders, negative COVID test, and picking tech time to [facility]. SCOTTIE also notified RN, private secretary, patient, and Nella at [facility]. PASRR was completed as Patient was originally observation status in the hospital. Plan: d/c to [facility] under skilled level of care on a PASRR as she was originally observation status in the hospital. [facility] will transport patient via [employer] van. Lisset SWENSON
[2021-12-01 10:01] LABS: Bedside Glucose 195 mg/dL (70-110)
--- NOTE | 2021-12-01 10:22 | NURSING ---
flushed with normal saline, heparin, deaccessed, applied 2X2 gauze to site.
== END 2021-12-01 10:47 | DRG 176 ==
LOC: ED 20:02 → PCU 21:22
PROVIDERS: Admitting Provider Hospitalist; Emergency Provider Emergency Medicine; Visit Provider Internal Medicine
DX: I26.99 Other pulmonary embolism without acute cor pulmonale (principal); C77.1 Secondary and unspecified malignant neoplasm of intrathoracic lymph nodes; C34.31 Malignant neoplasm of lower lobe, right bronchus or lung; E87.2 Acidosis; Z68.41 Body mass index [BMI] 40.0-44.9, adult; E11.22 Type 2 diabetes mellitus with diabetic chronic kidney disease; E11.65 Type 2 diabetes mellitus with hyperglycemia; Z79.4 Long term (current) use of insulin; E66.01 Morbid (severe) obesity due to excess calories; N18.31 Chronic kidney disease, stage 3a; E87.6 Hypokalemia; I12.9 Hypertensive chronic kidney disease with stage 1 through stage 4 chronic kidney disease, or unspecified chronic kidney disease; E78.00 Pure hypercholesterolemia, unspecified; E03.9 Hypothyroidism, unspecified; M10.9 Gout, unspecified; Z79.01 Long term (current) use of anticoagulants; Z79.84 Long term (current) use of oral hypoglycemic drugs; Z79.899 Other long term (current) drug therapy; Z87.01 Personal history of pneumonia (recurrent); Z87.891 Personal history of nicotine dependence
CPT/HCPCS: 36415; 36591; 71045; 71275; 80048; 82947; 82962; 83605; 83735; 84484; 85025; 85379; 87040; 87426; 93005; 93306; 94640; 97162; 97166; 97530; 97535; 97802; 99285; J7030; J7040; Q9957; Q9967; A4216

== ENCOUNTER 2022-02-01 03:50 | Emergency (ER) | payer MEDICARE, MEDICAID, SELFPAY ==
[2022-02-01 03:51] VITALS: BP 117/70; PULSE 75; RESP 27; TEMP 36.2; O2SAT 94; BMI 45.6
--- NOTE | 2022-02-01 04:18 | RAD_ITS ---
We are attempting to reach an attending provider to discuss findings. An addendum with communication details will be sent when the communication is complete. STUDY: X-RAY CHEST REASON FOR EXAM: Female, 71 years old. cough TECHNIQUE: Portable upright. COMPARISON: November 28, 2021 frontal view. November 03, 2021. FINDINGS: There is increased patchy opacity in the right mid to lower lung field and right perihilar region and mild bulging contour of the right hilum, increased from prior exam. There is a right subclavian Nbrjqm-c-Hjsc catheter, tip over the right atrium roughly 2 cm superior to the right hemidiaphragm, similar location compared to prior exam. Borderline cardiomegaly. RAD/Chest 1 View (Portable) IMPRESSION: Volume loss on the right and increased right perihilar and lung opacity, significantly increased from November 03, 2021 and November 28, 2021. Considerations include residual or recurrent mass with postobstructive pneumonitis and/or pneumonia or aspiration. Well-positioned right subclavian Nwkfwz-g-Gkmc catheter. Electronically Signed: Cora Aleman MD at 5:32 EDT ,
[2022-02-01] MEDS: Ipratropium/Albuterol Sulfate 3 ML AMPUL.NEB INHALATION (04:25)
[2022-02-01 04:26] VITALS: PULSE 90; RESP 20
--- NOTE | 2022-02-01 04:29 | EX.ED.DYSGE1 ---
HPI History of Present Illness Chief Complaint: Shortness of Breath Narrative Narrative: Patient is a 71-year-old female with past medical history of non-small cell lung cancer. She also has past history of pulmonary embolus and is currently on Eliquis. She states she finished chemotherapy and radiation approximately 2 months ago. She states that she also had pneumonia about 3 weeks ago. She states this evening she was sleeping and she awoke from sleep feeling increased shortness of breath. She states she was congested and having coughing spells with this. Secondary to her sudden onset of symptoms and her past medical history EMS was called to bring her in to the ER for evaluation. Patient states that upon arrival to the ER she has had spontaneous improvement but as she has concerned that she could have a repeat infection wants evaluated at this time [facility] Medical History Abdominal pain Ambulates with cane Anxiety Back pain Bladder disease Cancer Chills Cholelithiasis Cough CPAP (continuous positive airway pressure) dependence Dehydration Diabetes Diabetes mellitus, type II Diarrhea Dietary restriction DJD (degenerative joint disease) Dysphagia Easy bruising Encounter for education Fatty food intolerance Former smoker Gastric reflux Gout High cholesterol History of echocardiogram History of edema History of nephrolithiasis History of pain when walking Hyperlipidemia Hypertension Hypertension Hypomagnesemia Lactic acidosis Leukopenia due to antineoplastic chemotherapy Lung cancer Migraine headache Morbid obesity with BMI of 45.0-49.9, adult Non-small cell cancer of right lung Odynophagia Odynophagia Rheumatoid arthritis Shortness of breath on exertion Sleep apnea Thyroid disease Wears glasses Home Medications allopurinol 300 mg PO QHS 07/10/15 [History Last Taken 11/02/21] cholecalciferol (vitamin D3) 1,250 mcg (50,000 unit) capsule 50,000 unit PO CANO #12 cap 08/16/19 [History Last Taken 10/31/21] pravastatin 40 mg tablet 40 mg PO QHS #90 tab 08/16/19 [History Last Taken 11/02/21] dulaglutide 1.5 mg/0.5 mL subcutaneous pen injector 1.5 mg SUBCUT CANO 04/20/21 [History Last Taken 10/31/21] linagliptin 5 mg tablet 5 mg PO DAILY 08/09/21 [History Last Taken 11/03/21] lidocaine-prilocaine 2.5 %-2.5 % topical cream 1 applic TOPICAL ONCE PRN 30 Days #30 g 08/16/21 [Rx Last Taken Unknown] ondansetron 4 mg disintegrating tablet 4 mg PO Q8H PRN #30 tab 08/16/21 [Rx Last Taken 11/02/21] furosemide 20 mg PO DAILY 11/03/21 [History Last Taken 11/03/21] levothyroxine 25 mcg PO DAILY 11/03/21 [History Last Taken 11/03/21] potassium chloride 10 meq PO DAILY 11/28/21 [History Last Taken Unknown] Basaglar KwikPen U-100 Insulin 25 unit SUBCUT BIDAC #0 ml 11/30/21 [Rx Last Taken 11/02/21] acetaminophen [Tylenol] 650 mg PO Q6H PRN PRN #0 tab 11/30/21 [Rx Last Taken Unknown] albuterol sulfate 2.5 mg INHALATION Q2H PRN PRN #0 ml 11/30/21 [Rx Last Taken Unknown] apixaban [Eliquis] 10 mg PO BID #0 tab 11/30/21 [Rx Last Taken Unknown] benzonatate 100 mg PO Q4H PRN #0 cap 11/30/21 [Rx Last Taken Unknown] glucagon [GlucaGen Diagnostic Kit] 1 mg IM X1 PRN #0 ea 11/30/21 [Rx Last Taken Unknown] guaifenesin 10 ml PO Q4H PRN #0 ml 11/30/21 [Rx Last Taken Unknown] insulin lispro [Humalog KwikPen Insulin] See Protocol SUBCUT ACHS #0 ml 11/30/21 [Rx Last Taken Unknown] ipratropium-albuterol 3 ml INHALATION Q6HWA.RT #0 ml 11/30/21 [Rx Last Taken Unknown] melatonin 3 mg PO QHS #0 tab 11/30/21 [Rx Last Taken Unknown] prednisone 40 mg PO BREAKFAST #0 tab 11/30/21 [Rx Last Taken Unknown] sennosides-docusate sodium [Stool Softener-Stimulant Laxat] 2 tab PO BID PRN PRN #0 tab 11/30/21 [Rx Last Taken Unknown] dexamethasone [Decadron] 4 mg PO DAILY 10 Days #10 tab 02/01/22 [Rx Last Taken Unknown] doxycycline hyclate 100 mg PO BID 10 Days #20 cap 02/01/22 [Rx Last Taken Unknown] Allergy/AdvReac Type Severity Reaction Status Date / Time No Known Allergies Allergy Verified 02/01/22 03:57 Family History Father Lung cancer Sister Breast cancer Mother Hypertension Other Heart disease Kidney disease Surgical History H/O tubal ligation History of cholecystectomy Hx of colonoscopy Social History adopted: No household members: none number of children: 3 current occupational status: retired Smoking Status: Former smoker Tobacco: How many years used: 2 alcohol intake: current alcohol intake frequency: 0-2 drinks per day substance use type: does not use what type of physical activity do you participate in: none additional social history: ROS ROS ED Constitutional Constitutional ED: Denies chills or fever(s) ENT ENT ED: Denies sore throat Cardiovascular Cardiovascular: Denies chest pain Respiratory/Chest Respiratory/Chest: Reports cough, dyspnea and sputum Gastrointestinal Gastrointestinal: Denies abdominal pain, diarrhea, nausea or vomiting Genitourinary Genitourinary ED: Denies dysuria Musculoskeletal Musculoskeletal: Denies myalgias Integumentary Denies rash Neurologic Neurologic: Denies headache(s) Hematologic/Lymphatic Hematologic/Lymphatic: Reports easy bleeding and easy bruising EXAM Physical Exam Const Vital Signs: 02/01/22 03:51 02/01/22 04:00 02/01/22 04:26 Temperature 97.1 F L Temperature Source Temporal Pulse Rate 75 90 Respiratory Rate 27 H 20 H Respiratory Effort Normal Blood Pressure 117/70 Blood Pressure Mean 85 Pulse Ox 94 Oxygen Delivery Method Room Air Positive well nourished, well developed and obese General Appearance ED: well developed Nutritional Appearance: obese HEENT Reports moist mucous membranes HEENT Narrative: No tongue or lip swelling no oral lesions no airway edema or compromise. There is cobblestoning noted in the posterior pharynx consistent with sinus drainage Eyes PERRL and EOMs intact bilaterally Neck supple and no JVD Neck Narrative: No crepitance palpated Resp Resp Narrative: Breath sounds are diminished throughout with faint expiratory wheeze in the bilateral bases. There is mild tachypnea noted but otherwise no nasal flaring retractions or accessory muscle use Cardio regular rate and regular rhythm Rate: other Other Details: Radial pulses are +2-4 bilaterally are equal and symmetric GI normal to inspection, nondistended, normoactive bowel sounds, non-tender, non-distended and no masses GI Narrative: No fluid wave or pulsatile mass Auscultation: normoactive bowel sounds Palpation: soft Extremity Extremity Narrative: +2-3 pitting edema to the bilateral lower extremities that is equal and symmetric with negative Homans' sign bilaterally Neuro oriented x3 and CN's II-XII intact bilaterally Sensorium / Orientation: alert Psych mental status grossly normal Skin no rashes or lesions noted MDM MDM MDM Narrative Medical decision making narrative: Patient lives the ER in no acute respiratory distress satting in the mid 90s on room air. Based on her history of lung cancer as well as previous pneumonia I did elect to perform basic laboratory studies and a chest x-ray. Labs show no leukocytosis or left shift patient is not neutropenic. The x-ray did show increased right sided lung opacity compared to her previous images and there was concern for pneumonitis versus obstructive pneumonia. Secondary to this reading I discussed the case with her oncologist Dr. Arguello. He recommends patient be started on Decadron antibiotics at this time and would prefer a noncontrast chest CT to further evaluate the mass. However as she is not neutropenic or having acute respiratory distress or need for supplemental oxygen he agrees that patient can be placed on her medications and be discharged and follow-up on an outpatient basis. The plan of care was discussed with the patient and she is agreeable to this. The fact that she is on Eliquis and has had cough and congestion leads me to believe we do not need to perform a CTA as her risk for PE is low Lab Data Attestation: I reviewed the patient's lab results. Labs: Laboratory Results - last 24 hr 02/01/22 02/01/22 02/01/22 04:15 04:15 04:15 WBC 8.7 RBC 3.59 L Hgb 11.8 L Hct 35.6 L MCV 99.2 H MCH 32.9 H MCHC 33.1 RDW Std Deviation 48.9 H RDW Coeff of Mahnaz 13.4 Plt Count 224 MPV 9.6 Immature Gran % (Auto) 0.700 Neut % (Auto) 72.2 H Lymph % (Auto) 13.6 L [place] % (Auto) 10.1 H Eos % (Auto) 3.1 Baso % (Auto) 0.3 Absolute Neuts (auto) 6.3 Absolute Lymphs (auto) 1.18 Nucleated RBC % 0 Sodium 144 Potassium 3.8 Chloride 109 H Carbon Dioxide 30.0 Anion Gap 5 BUN 27 H Creatinine 1.40 H Estim Creat Clear Calc 33.65 Est GFR (MDRD) Af Amer 48 L Est GFR (MDRD) Non-Af 39 L BUN/Creatinine Ratio 19.3 Glucose 94 Calcium 9.2 Magnesium 2.2 B-Natriuretic Peptide 100.9 H Radiography Diagnostic Testing: Clinical Impression(s) from Imaging Studies Chest X-Ray 02/01/22 04:18 IMPRESSION: Volume loss on the right and increased right perihilar and lung opacity, significantly increased from November 03, 2021 and November 28, 2021. Considerations include residual or recurrent mass with postobstructive pneumonitis and/or pneumonia or aspiration. Well-positioned right subclavian [id number] catheter. Electronically Signed: Cora Aleman MD at 5:32 EDT , ADDENDUM: 02/01/22 0547 IMPRESSION: Volume loss on the right and increased right perihilar and lung opacity, significantly increased from November 03, 2021 and November 28, 2021. Considerations include residual or recurrent mass with postobstructive pneumonitis and/or pneumonia or aspiration. Well-positioned right subclavian Sllitn-w-Qojd catheter. N.B. : The above Results were Read Back by Cora Aleman MD to MARY CUEVAS DO, and understanding confirmed on 02/01/2022 05:40:18 (ET). Electronically Signed: Cora Aleman MD at 5:32 EDT , X-ray as interpreted by the emergency medicine physician shows a right-sided lung mass with obstructive pneumonia Discharge Plan Triage Chief Complaint: Shortness of Breath ED Provider: Mary Cuevas Dx/Rx/DC Orders Clinical Impression: Lung mass, Obstructive pneumonia Instructions: Cancer Lung Dc, ED Pneumonia (Adult) Prescriptions: New dexamethasone [Decadron] 4 mg tablet 4 mg PO DAILY 10 Days Qty: 10 RF: 0 doxycycline hyclate 100 mg capsule 100 mg PO BID 10 Days Qty: 20 RF: 0 No Action cholecalciferol (vitamin D3) 50,000 unit capsule 50,000 unit PO CANO Qty: 12 RF: 0 pravastatin 40 mg tablet 40 mg PO QHS Qty: 90 RF: 0 Trulicity 1.5 mg/0.5 mL pen injector 1.5 mg subcut CANO RF: 0 Tradjenta 5 mg tablet 5 mg PO DAILY RF: 0 lidocaine-prilocaine 2.5-2.5 % cream 1 applic topical ONCE PRN (Reason: port access) 30 Days Qty: 30 RF: 2 ondansetron 4 mg tablet,disintegrating 4 mg PO Q8H PRN (Reason: nausea and vomiting) Qty: 30 RF: 2 allopurinol 300 MG tablet 300 mg PO QHS RF: 0 levothyroxine 25 mcg tablet 25 mcg PO DAILY RF: 0 furosemide 20 mg tablet 20 mg PO DAILY RF: 0 potassium chloride 10 mEq Tablet Extended Release 10 meq PO DAILY RF: 0 Eliquis 5 mg Tablet 10 mg PO BID Qty: 0 RF: 0 insulin lispro [Humalog KwikPen Insulin] 100 unit/mL Insulin Pen See Protocol unit subcut ACHS Qty: 0 RF: 0 ipratropium-albuterol 0.5 mg-3 mg(2.5 mg base)/3 mL Solution For Nebulization 3 ml inhalation Q6HWA.RT Qty: 0 RF: 0 prednisone 20 mg Tablet 40 mg PO BREAKFAST Qty: 0 RF: 0 sennosides-docusate sodium [Stool Softener-Stimulant Laxat] 8.6-50 mg Tablet 2 tab PO BID PRN PRN (Reason: Constipation) Qty: 0 RF: 0 melatonin 3 mg Tablet 3 mg PO QHS Qty: 0 RF: 0 guaifenesin 100 mg/5 mL Liquid 10 ml PO Q4H PRN (Reason: COUGH) Qty: 0 RF: 0 benzonatate 100 mg Capsule 100 mg PO Q4H PRN (Reason: COUGH) Qty: 0 RF: 0 GlucaGen Diagnostic Kit 1 mg/mL Recon Soln 1 mg IM X1 PRN (Reason: Hypoglycemia) Qty: 0 RF: 0 acetaminophen [Tylenol] 325 mg Tablet 650 mg PO Q6H PRN PRN (Reason: Pain Score 1-10/Temp > 100.7 F) Qty: 0 RF: 0 albuterol sulfate 2.5 mg /3 mL (0.083 %) Solution For Nebulization 2.5 mg inhalation Q2H PRN PRN (Reason: SOB/Wheezing) Qty: 0 RF: 0 Basaglar KwikPen U-100 Insulin 100 unit/mL (3 mL) insulin pen 25 unit subcut BIDAC Qty: 0 RF: 0 [facility]: Esvin Arguello MD [NON-STAFF] - 1 Day [facility] [Primary Care Provider] - Activity Restrictions/Additional Instructions: Please take your medications as directed to help control your symptoms and keep your appointment with your oncologist for tomorrow. Please return to the ER should you have any further concerns Disposition Disposition: Home, Self Care
[2022-02-01 04:31] LABS: Absolute Lymphocyte Count 1.18 X10^3/uL (0.83-4.51); Absolute Neutrophil Count 6.3 X10^3/uL (2.0-7.7); Basophil# 0.03 X10^3/uL; Basophil% 0.3 % (0-1); Eosinophil# 0.27 X10^3/uL; Eosinophils% 3.1 % (0-5); Hematocrit 35.6 % (37-47); Hemoglobin 11.8 g/dL (12.0-15.0); Lymphocyte # 1.18 X10^3/ul (0.83-4.51); Lymphocyte % 13.6 % (19-41); Mean Corp Hgb Conc 33.1 g/dL (32-36); Mean Corpuscular Hgb 32.9 pg (27.0-32.0); Mean Corpuscular Volume 99.2 fL (81-99); Mean Platelet Vol. 9.6 fl (6.2-12.0); Monocyte# 0.88 X10^3/uL; Monocyte% 10.1 % (0-10); NRBC Flagged by Analyzer 0 % (0-5); Neutrophil # 6.26 X10^3/uL (2.7-7.7); Neutrophil % 72.2 % (47-70); Platelet Count 224 K/mm3 (150-450); RBC Distribution Width CV 13.4 % (11.6-14.6); RBC Distribution Width SD 48.9 fl (35.1-43.9); Red Blood Count 3.59 M/mm3 (4.2-5.4); White Blood Count 8.7 K/mm3 (4.4-11.0)
[2022-02-01 04:44] LABS: Anion Gap 5 (5-15); BUN 27 mg/dL (7-18); BUN/Creat Ratio 19.3 RATIO (10-20); Calcium,Total 9.2 mg/dL (8.5-10.1); Chloride 109 mmol/L (98-107); EST Glomerular Filtration Rate 39 mL/min (>60); Est Glom Filt Rate - Afr Amer 48 mL/min (>60); Estimated Creatinine Clearance 33.65 ml/min; Glucose 94 mg/dL (74-106); Magnesium 2.2 mg/dL (1.6-2.6); Potassium 3.8 mmol/L (3.5-5.1); Sodium Level 144 mmol/L (136-145)
[2022-02-01 04:50] LABS: BNP,B-Type NATRIURETIC PEPTIDE 100.9 pg/mL (0-100)
--- NOTE | 2022-02-01 05:56 | CT_ITS ---
STUDY: CT CHEST WITHOUT CONTRAST REASON FOR EXAM: Female, 71 years old. lung mass RADIATION DOSAGE (If Supplied By Facility): CTDIvol = ( 20.15 ) mGy, DLP = ( 684.71 ) mGycm TECHNIQUE: Transaxial imaging was performed without the administration of intravenous contrast material. 2.5 mm axials, 1.2 mm coronal and sagittal reconstructions Individualized dose optimization techniques were used for this CT. COMPARISON: PE protocol chest November 28, 2021, the patient had bilateral PE at that time in the proximal segmental vessels, she is now on Eloquis per discussion with the referring physician earlier. FINDINGS: There is confluent irregular opacity in the right hilum and in the medial right upper and lower lobes and to a lesser extent in the proximal right middle lobe with air bronchograms, no complete central airway obstruction but there is bulky soft tissue density especially around right lower lobe bronchovascular structures which may be infiltrative mass. There is a calcified similar mass in the left prevascular region measuring 1.5 cm x 2.5 cm. Adequately positioned right jugular [id number] catheter. Coronary artery stent are suspected. Mild prominent epicardial fat. No epicardial effusion or nodule on unenhanced exam. Normal mediastinum. Normal hilar regions. Normal unenhanced pulmonary arteries. Normal aorta arch and descending thoracic aorta. Normal osseous structures. At least 2 small nonobstructing stones at the upper pole of the left kidney, they were not included at this region on prior exam. Unremarkable adrenals, partially included unenhanced liver, completely included spleen, mid to distal pancreas. CT/Chest without Contrast IMPRESSION: Increased moderate-large zone of right perihilar infiltrative-appearing soft tissue density surrounding bronchovascular structures and involving upper and lower lungs, suspicion of direct spread of neoplasm. Cannot exclude underlying infiltrate or aspiration but there is no high-grade central airway obstruction to suggest postobstructive pneumonitis. Coronary artery stent. Right Lyffcv-g-[id number] catheter, tip near the inferior right atrium and IVC, roughly 1-2 cm more inferior in position than on prior exam. Electronically Signed: Cora Aleman MD at 7:12 EDT ,
[2022-02-01] MEDS: Doxycycline 100 MG CAPSULE PO (06:31)
[2022-02-01] MEDS: dexAMETHasone 4 MG/ML Vial IV (06:32)
[2022-02-01 06:35] VITALS: BP 127/88; PULSE 97; RESP 20; O2SAT 93
[2022-02-01] MEDS: LORazepam 1 MG Tablet PO (08:18)
[2022-02-01] MEDS: 0.9 % NaCl (Sterile) Posiflush 10 mL IV (09:52)
[2022-02-01 09:55] VITALS: BP 143/89; PULSE 100; RESP 20; O2SAT 95
[2022-02-01 10:33] VITALS: BP 126/75; PULSE 81; RESP 16; O2SAT 93
== END 2022-02-01 10:35 | disposition home or self-care (01) ==
PROVIDERS: Emergency Provider Emergency Medicine; Visit Provider Emergency Medicine
DX: J18.8 Other pneumonia, unspecified organism (principal); M06.9 Rheumatoid arthritis, unspecified; E66.01 Morbid (severe) obesity due to excess calories; Z68.42 Body mass index [BMI] 45.0-49.9, adult; E11.9 Type 2 diabetes mellitus without complications; Z79.4 Long term (current) use of insulin; R91.8 Other nonspecific abnormal finding of lung field; I10 Essential (primary) hypertension; E78.00 Pure hypercholesterolemia, unspecified; E07.9 Disorder of thyroid, unspecified; M10.9 Gout, unspecified; Z79.01 Long term (current) use of anticoagulants; Z79.84 Long term (current) use of oral hypoglycemic drugs; Z79.899 Other long term (current) drug therapy; Z85.118 Personal history of other malignant neoplasm of bronchus and lung; Z86.711 Personal history of pulmonary embolism; Z87.891 Personal history of nicotine dependence
CPT/HCPCS: 36591; 71045; 71250; 80048; 83735; 83880; 85025; 87428; 94640; 96374; 99285; A4216

== ENCOUNTER 2022-02-11 15:07 | Outpatient (RCR) | payer MEDICARE, MEDICAID, SELFPAY ==
[2022-02-09 15:59] LABS: Absolute Lymphocyte Count 1.45 X10^3/uL (0.83-4.51); Absolute Neutrophil Count 12.8 X10^3/uL (2.0-7.7); Basophil# 0.03 X10^3/uL; Basophil% 0.2 % (0-1); Eosinophil# 0.01 X10^3/uL; Eosinophils% 0.1 % (0-5); Hematocrit 43.2 % (37-47); Hemoglobin 13.6 g/dL (12.0-15.0); Lymphocyte # 1.45 X10^3/ul (0.83-4.51); Lymphocyte % 9.4 % (19-41); Mean Corp Hgb Conc 31.5 g/dL (32-36); Mean Corpuscular Hgb 31.9 pg (27.0-32.0); Mean Corpuscular Volume 101.4 fL (81-99); Mean Platelet Vol. 10.7 fl (6.2-12.0); Monocyte# 0.95 X10^3/uL; Monocyte% 6.1 % (0-10); NRBC Flagged by Analyzer 0 % (0-5); Neutrophil # 12.83 X10^3/uL (2.7-7.7); Neutrophil % 82.8 % (47-70); Platelet Count 230 K/mm3 (150-450); RBC Distribution Width CV 13.5 % (11.6-14.6); RBC Distribution Width SD 50.2 fl (35.1-43.9); Red Blood Count 4.26 M/mm3 (4.2-5.4); White Blood Count 15.5 K/mm3 (4.4-11.0)
[2022-02-09 16:20] LABS: AST(SGOT) 15 U/L (15-37); Alanine Aminotransfer ALT/SGPT 17 U/L (13-56); Albumin, Serum 3.3 g/dL (3.2-5.0); Alkaline Phosphatase 77 U/L (45-117); Anion Gap 8 (5-15); BUN 43 mg/dL (7-18); BUN/Creat Ratio 27.9 RATIO (10-20); Calcium,Total 9.7 mg/dL (8.5-10.1); Chloride 105 mmol/L (98-107); Creatinine, Serum 1.54 mg/dL (0.55-1.02); EST Glomerular Filtration Rate 35 mL/min (>60); Est Glom Filt Rate - Afr Amer 43 mL/min (>60); Globulin 3.4 g/dL (2.2-4.2); Glucose 199 mg/dL (74-106); Potassium 4.2 mmol/L (3.5-5.1); Protein, Total 6.7 g/dL (6.4-8.2); Sodium Level 141 mmol/L (136-145)
[2022-02-11 16:27] LABS: BNP,B-Type NATRIURETIC PEPTIDE 116.7 pg/mL (0-100)
== END 2022-02-19 23:59 ==
LOC: HHLAB 15:07
PROVIDERS: Visit Provider Nurse Practitioner Adult Health
DX: C34.31 Malignant neoplasm of lower lobe, right bronchus or lung (principal); D63.0 Anemia in neoplastic disease; Z86.711 Personal history of pulmonary embolism
CPT/HCPCS: 80048; 80076; 83880; 85025

== ENCOUNTER → 2022-03-16 | Outpatient (CLI) | payer MEDICARE, MEDICAID, SELFPAY ==
--- NOTE | 2022-03-16 12:17 | CT_ITS ---
INDICATION: NSCLC, Radiation Pneumonitis, on treatment EXAMINATION: CT CHEST WITH CONTRAST - CT Chest W/ Contrast Injection TECHNIQUE: Helically acquired images were obtained of the chest following IV contrast. A radiation dose optimization technique was used for this scan. IV Contrast dosage and agent: 75 cc of ISOVUE-300. COMPARISON: CT chest from 02/01/2022, 11/12/2021. FINDINGS: LUNG/PLEURA: The central airways are patent. No pleural effusion or pneumothorax. Right lung: There is redemonstration of confluent opacities with air bronchogram levels in the right hilum and right upper, middle, and lower lobes. There are associated scattered groundglass opacities throughout the right lung. This is stable to slightly improved from previous study. The consolidative opacity in the right upper lobe is felt to relate to atelectasis with associated volume loss. The remaining opacities may relate to combination of atelectasis and infiltrative soft tissue. There is narrowing of the right subsegmental and segmental pulmonary bronchi with similar degree of compression of the right upper lobe and right lower lobe subsegmental bronchi. There is redemonstration of a spiculated 2.9 x 2.1 cm mass in the right lower lobe (6:97), which appears grossly stable from 02/01/2022 previously measuring 3.0 x 2.2 cm. However, direct assessment for measurements on both studies is limited given degree of surrounding atelectasis. Left lung: No focal consolidations or suspicious masses. MEDIASTINUM: Heart size is normal. No pericardial effusion. The infiltrative soft tissue from the lung on the right hilum abuts the right mediastinum does not demonstrate definitive invasion. Slight decrease in size of the left mediastinal slight node anterior to the left pulmonary artery now measuring 2.2 x 1.8 cm, previously 2.3 x 2.0 cm. There do not appear to be any other pathologically enlarged lymph nodes. VASCULATURE: Limited assessment of the pulmonary vessels for filling defects due to contrast timing and contrast mixing. However, there appears to be stable course and caliber of the pulmonary arteries when compared to CTA chest from 11/28/2021 without definitive large central pulmonary embolism. Thoracic aorta is normal course and caliber with minimal arteriovascular calcifications. BONES/SOFT TISSUES: Stable sclerotic focus in the T12 vertebral body likely a bone island. No destructive osseous lesions. No acute fracture or subluxation. Soft tissues are unremarkable. VISUALIZED UPPER ABDOMEN: Unremarkable. CT/Chest WITH Contrast IMPRESSION: 1. Extensive confluent opacities and associated scattered groundglass opacities throughout the right lung and the right hilum appear stable to slightly improved from previous study. A 2.9 x 2.1 cm mass in the right lower lobe also appears stable from 02/01/2022. However direct measurements are difficult to assess given degree of surrounding parenchymal changes. Overall, these findings are felt to relate to post radiation changes, atelectasis with volume loss, and some degree of infiltrative soft tissue. 2. Slight decrease in size of the calcified left mediastinal node. Electronically Signed: Mike Riojas, at 8:57 EDT ,
[2022-03-16] MEDS: 0.9% Saline Lock 10 ML Syringe IV (12:44)
== END | disposition home or self-care (01) ==
LOC: CT 12:15
PROVIDERS: Referring Provider Internal Medicine Medical Oncology; Visit Provider Internal Medicine Medical Oncology
DX: C34.91 Malignant neoplasm of unspecified part of right bronchus or lung (principal); J70.0 Acute pulmonary manifestations due to radiation
CPT/HCPCS: 71260; Q9967; A4216

== ENCOUNTER → 2022-04-15 | Outpatient (CLI) | payer MEDICARE, MEDICAID, SELFPAY ==
[2022-04-15 09:58] LABS: Absolute Lymphocyte Count 1.18 X10^3/uL (0.83-4.51); Absolute Neutrophil Count 6.8 X10^3/uL (2.0-7.7); Basophil# 0.04 X10^3/uL; Basophil% 0.4 % (0-1); Eosinophils% 1.1 % (0-5); Hematocrit 37.2 % (37-47); Hemoglobin 12.1 g/dL (12.0-15.0); Lymphocyte # 1.18 X10^3/ul (0.83-4.51); Lymphocyte % 13.1 % (19-41); Mean Corp Hgb Conc 32.5 g/dL (32-36); Mean Corpuscular Volume 98.4 fL (81-99); Monocyte# 0.82 X10^3/uL; Monocyte% 9.1 % (0-10); NRBC Flagged by Analyzer 0 % (0-5); Neutrophil # 6.78 X10^3/uL (2.7-7.7); Neutrophil % 75.6 % (47-70); Platelet Count 170 K/mm3 (150-450); RBC Distribution Width CV 15.2 % (11.6-14.6); RBC Distribution Width SD 54.7 fl (35.1-43.9); Red Blood Count 3.78 M/mm3 (4.2-5.4)
[2022-04-15 10:17] LABS: BNP,B-Type NATRIURETIC PEPTIDE 72.7 pg/mL (0-100)
[2022-04-15 10:25] LABS: Hemoglobin A1c 6.7 % (3.8-5.6)
[2022-04-15 10:41] LABS: ALB/GLOB Ratio 0.9 RATIO (0.9-2.4); AST(SGOT) 18 U/L (15-37); Alanine Aminotransfer ALT/SGPT 14 U/L (13-56); Alkaline Phosphatase 72 U/L (45-117); Anion Gap 10 (5-15); BUN 15 mg/dL (7-18); BUN/Creat Ratio 10.9 RATIO (10-20); Calcium,Total 9.1 mg/dL (8.5-10.1); Chloride 109 mmol/L (98-107); Creatinine, Serum 1.37 mg/dL (0.55-1.02); EST Glomerular Filtration Rate 40 mL/min (>60); Est Glom Filt Rate - Afr Amer 49 mL/min (>60); Globulin 3.4 g/dL (2.2-4.2); Glucose 71 mg/dL (74-106); Potassium 3.6 mmol/L (3.5-5.1); Protein, Total 6.4 g/dL (6.4-8.2); Sodium Level 142 mmol/L (136-145); Thyroid Stim Hormone (TSH) 1.09 uIU/mL (0.358-3.74)
== END | disposition home or self-care (01) ==
LOC: LAB 09:13
PROVIDERS: Visit Provider Nurse Practitioner Adult Health
DX: J18.9 Pneumonia, unspecified organism (principal); F32.0 Major depressive disorder, single episode, mild; E11.65 Type 2 diabetes mellitus with hyperglycemia; I10 Essential (primary) hypertension; R60.0 Localized edema
CPT/HCPCS: 36415; 80053; 83036; 83880; 84443; 85025

== ENCOUNTER → 2022-05-03 | Outpatient (CLI) | payer MEDICARE, MEDICAID, SELFPAY ==
--- NOTE | 2022-05-03 08:37 | CPS ---
DLCO WAS ATTEMPTED BUT PT UNABLE TO PERFORM PROPER TECHNIQUE
--- NOTE | 2022-05-03 12:11 | PFT ---
INTRODUCTION: The patient is a 71-year-old female that presents for pulmonary function studies secondary to a diagnosis of lung cancer. Respiratory therapy reported that the patient was unable to perform appropriate diffusing capacity maneuvers. Bronchodilators were used during testing. INTERPRETATION: Forced expiration spirometry demonstrates no evidence of a large airways obstructive ventilatory defect. There was no significant response to aerosolized bronchodilators. Spirograms are of adequate quality and plateau normally. Body plethysmography was performed and reveals a decreased TLC to 3.1 L, 62% of predicted, indicative of a moderate restrictive ventilatory impairment. Diffusing capacity was unable to be obtained. IMPRESSION: Moderate restrictive ventilatory impairment.
== END | disposition home or self-care (01) ==
PROVIDERS: Referring Provider Internal Medicine Critical Care Medicine; Visit Provider Internal Medicine Critical Care Medicine
DX: C34.91 Malignant neoplasm of unspecified part of right bronchus or lung (principal); J70.0 Acute pulmonary manifestations due to radiation
CPT/HCPCS: 94060; 94726

== ENCOUNTER → 2022-06-21 | Outpatient (CLI) | payer MEDICARE, MEDICAID, SELFPAY ==
[2022-06-21 10:49] LABS: Absolute Lymphocyte Count 1.21 X10^3/uL (0.83-4.51); Absolute Neutrophil Count 5.2 X10^3/uL (2.0-7.7); Basophil# 0.03 X10^3/uL; Basophil% 0.4 % (0-1); Eosinophil# 0.12 X10^3/uL; Eosinophils% 1.7 % (0-5); Hematocrit 41.3 % (37-47); Hemoglobin 13.6 g/dL (12.0-15.0); Lymphocyte # 1.21 X10^3/ul (0.83-4.51); Lymphocyte % 16.9 % (19-41); Mean Corp Hgb Conc 32.9 g/dL (32-36); Mean Corpuscular Volume 97.2 fL (81-99); Mean Platelet Vol. 10.6 fl (6.2-12.0); Monocyte# 0.63 X10^3/uL; Monocyte% 8.8 % (0-10); NRBC Flagged by Analyzer 0 % (0-5); Neutrophil # 5.17 X10^3/uL (2.7-7.7); Neutrophil % 71.9 % (47-70); Platelet Count 179 K/mm3 (150-450); RBC Distribution Width CV 13.2 % (11.6-14.6); RBC Distribution Width SD 47.1 fl (35.1-43.9); Red Blood Count 4.25 M/mm3 (4.2-5.4); White Blood Count 7.2 K/mm3 (4.4-11.0)
[2022-06-21 11:19] LABS: Hemoglobin A1c 5.6 % (3.8-5.6)
[2022-06-21 11:35] LABS: Anion Gap 8 (5-15); BUN 14 mg/dL (7-18); BUN/Creat Ratio 10.1 RATIO (10-20); Calcium,Total 9.6 mg/dL (8.5-10.1); Chloride 103 mmol/L (98-107); Creatinine, Serum 1.38 mg/dL (0.55-1.02); EST Glomerular Filtration Rate 40 mL/min (>60); Est Glom Filt Rate - Afr Amer 49 mL/min (>60); Glucose 66 mg/dL (74-106); Sodium Level 141 mmol/L (136-145)
== END | disposition home or self-care (01) ==
DX: E11.9 Type 2 diabetes mellitus without complications (principal)
CPT/HCPCS: 36415; 80048; 83036; 85025

== ENCOUNTER → 2022-09-26 | Outpatient (CLI) | payer MEDICARE, MEDICAID, SELFPAY ==
--- NOTE | 2022-09-26 12:25 | CT_ITS ---
ACR Level 3 findings have been noted. An addendum which confirms receipt of the report will follow. EXAM: CT CHEST AND ABDOMEN WITH INTRAVENOUS CONTRAST CLINICAL INDICATION: LUNG [id number] ONLY TECHNIQUE: Helically acquired images were obtained of the chest and abdomen with intravenous contrast. CTDIvol = ( 20.68 ) mGy, DLP = ( 1752.85 ) mGycm This CT exam was performed using one or more of the following dose reduction techniques: automated exposure control, adjustment of the mA and/or kV according to patient size, and/or use of iterative reconstruction technique. This report was created using [employer] report [employer] technology. CONTRAST: IV 100mL Isovue-300 COMPARISON: None. FINDINGS: CHEST: LUNGS AND PLEURAL SPACES: New right pleural effusion which is low in low in density without definite nodularity at the periphery. There is also a small right anterior basilar pneumothorax which is new. Persistent dense airspace disease centrally on the right side which may represent treatment/radiation change. No mass. HEART: Unremarkable. Heart size is normal. No pericardial effusion. No significant coronary artery calcifications. MEDIASTINUM: Unchanged calcified 2.4 cm mass involving the left suprahilar region. No mediastinal or hilar adenopathy. Esophagus is unremarkable. No hiatal hernia. THYROID: Unremarkable. No thyroid lesions. ABDOMEN: LIVER: Unremarkable. Homogeneous. No focal mass. GALLBLADDER AND BILE DUCTS: Unremarkable. No calcified gallstones. No gallbladder distention or wall edema. No intra- or extrahepatic biliary ductal dilation. PANCREAS: Unremarkable. No focal cystic or solid mass. SPLEEN: Unremarkable. Normal size without focal cystic or solid mass. ADRENALS: Unremarkable. No nodules. KIDNEYS AND URETERS: Bilateral renal scarring. No obstructive uropathy. Small punctate nonobstructing right renal calyceal calculi. STOMACH AND BOWEL: Distal colonic diverticulosis but no diverticulitis. No colitis or bowel obstruction. INTRAPERITONEAL SPACE: Unremarkable. No ascites or other fluid collection. No free air. CHEST and ABDOMEN: BONES/JOINTS: Unremarkable. No suspicious lytic or blastic abnormality. SOFT TISSUES: Unremarkable. No discrete abdominal wall hernia. VASCULATURE: No PE. No aneurysm or dissection. Multivessel calcific coronary atherosclerosis. No obvious central pulmonary embolism although this study was not performed with the pulmonary embolism protocol. LYMPH NODES: Unremarkable. No enlarged lymph nodes. CT/CT Chest AND Abd W/ Contrast IMPRESSION: 1. New right hydropneumothorax with small component of intrapleural air and no midline shift to the left. 2. No PE. 3. Persistent dense airspace disease centrally on the right side which may represent treatment/radiation change. Electronically Signed: Aquiles Canas MD at 1:43 EST ,
[2022-09-26] MEDS: 0.9 % NaCl (Sterile) Posiflush 10 mL IV (13:05)
== END | disposition home or self-care (01) ==
PROVIDERS: Referring Provider Internal Medicine Medical Oncology; Visit Provider Internal Medicine Medical Oncology
DX: C34.91 Malignant neoplasm of unspecified part of right bronchus or lung (principal)
CPT/HCPCS: 71260; 74160; Q9967; A4216

== ENCOUNTER → 2022-10-26 | Outpatient (CLI) | payer MEDICARE, SELFPAY ==
[2022-10-26 09:36] LABS: Hematocrit 43.1 % (37-47); Hemoglobin 14.2 g/dL (12.0-15.0); Mean Corp Hgb Conc 32.9 g/dL (32-36); Mean Corpuscular Hgb 32.1 pg (27.0-32.0); Mean Corpuscular Volume 97.5 fL (81-99); Mean Platelet Vol. 9.9 fl (6.2-12.0); Platelet Count 183 K/mm3 (150-450); RBC Distribution Width CV 13.6 % (11.6-14.6); RBC Distribution Width SD 49.1 fl (35.1-43.9); Red Blood Count 4.42 M/mm3 (4.2-5.4); White Blood Count 8.6 K/mm3 (4.4-11.0)
[2022-10-26 09:49] LABS: Hemoglobin A1c 5.6 % (3.8-5.6)
[2022-10-26 10:08] LABS: ALB/GLOB Ratio 0.9 RATIO (0.9-2.4); AST(SGOT) 15 U/L (15-37); Alanine Aminotransfer ALT/SGPT 17 U/L (13-56); Albumin, Serum 3.4 g/dL (3.2-5.0); Alkaline Phosphatase 101 U/L (45-117); Anion Gap 4 (5-15); BUN 20 mg/dL (7-18); BUN/Creat Ratio 13.4 RATIO (10-20); Calcium,Total 9.4 mg/dL (8.5-10.1); Chloride 104 mmol/L (98-107); Creatinine, Serum 1.49 mg/dL (0.55-1.02); EST Glomerular Filtration Rate 37 mL/min (>60); Est Glom Filt Rate - Afr Amer 44 mL/min (>60); Globulin 3.9 g/dL (2.2-4.2); Glucose 75 mg/dL (74-106); Potassium 3.9 mmol/L (3.5-5.1); Protein, Total 7.3 g/dL (6.4-8.2); Sodium Level 138 mmol/L (136-145); Thyroid Stim Hormone (TSH) 2.49 uIU/mL (0.358-3.74)
== END | disposition home or self-care (01) ==
LOC: LAB 08:52
PROVIDERS: Referring Provider Nurse Practitioner Family; Visit Provider Nurse Practitioner Family
DX: E11.65 Type 2 diabetes mellitus with hyperglycemia (principal); E03.9 Hypothyroidism, unspecified
CPT/HCPCS: 36415; 80053; 83036; 84443; 85027

== ENCOUNTER → 2022-12-26 | Outpatient (CLI) | payer MEDICARE, SELFPAY ==
--- NOTE | 2022-12-26 12:10 | CT_ITS ---
STUDY: CT CHEST WITH CONTRAST REASON FOR EXAM: Female, 72 years old. MONITOR LUNG CA RADIATION DOSAGE (If Supplied By Facility): CTDIvol = ( 14.65 ) mGy, DLP = ( 652.64 ) mGycm TECHNIQUE: Transaxial imaging was performed following intravenous administration of IV 100mL Isovue-370. Multiplanar coronal and sagittal images were reformatted. Individualized dose optimization techniques were used for this CT. COMPARISON: Comparison is made with prior study dated September 26, 2022. FINDINGS: CHEST A right-sided portacatheter is seen with the tip in the superior vena cava. Mild loss in the right hemithorax. Moderate-sized right pleural effusion with mild loss in the right lower lobe. There are calcifications of the coronary arteries. Stable calcified left hilar lymph node. Persistent 3 cm x 3.7 cm mass in the right infrahilar region. There is evidence of post obstructive pneumonitis at the right lung base. Normal unenhanced pulmonary arteries. Normal aorta arch and descending thoracic aorta. There are multi-level degenerative changes of the thoracic spine. There is no demonstrated abnormality of the visualized upper abdomen. CT/Chest WITH Contrast IMPRESSION: Stable right infrahilar mass with postobstructive pneumonitis in the right lower lobe and moderate-sized pleural effusion. Electronically Signed: Cristino Medina MD at 14:56 EST ,
[2022-12-26] MEDS: 0.9 % NaCl (Sterile) Posiflush 10 mL IV (13:05)
== END | disposition home or self-care (01) ==
LOC: CT 12:10
PROVIDERS: Visit Provider Internal Medicine Medical Oncology
DX: C34.91 Malignant neoplasm of unspecified part of right bronchus or lung (principal)
CPT/HCPCS: 71260; Q9967; A4216

== ENCOUNTER → 2023-07-13 | Outpatient (CLI) | payer MEDICARE, MEDICAID, SELFPAY ==
--- NOTE | 2023-07-13 12:00 | CT_ITS ---
STUDY: CT CHEST WITH CONTRAST REASON FOR EXAM: Female, 73 years old. MONITOR LUNG CA RADIATION DOSAGE (If Supplied By Facility): CTDIvol = ( 14.99 ) mGy, DLP = ( 630.39 ) mGycm TECHNIQUE: Transaxial imaging was performed following intravenous administration of IV 100mL Isovue-370. Multiplanar coronal and sagittal images were reformatted. Individualized dose optimization techniques were used for this CT. COMPARISON: Comparison is made with prior study dated December 26, 2022. FINDINGS: CHEST A right-sided portacatheter is seen with the tip in the superior vena cava. Stable volume loss in the right hemithorax. Moderate-sized right pleural effusion with the volume loss in the right lower lobe and volume loss in the right lower lobe. There are calcifications of the coronary arteries. Normal mediastinum. Stable 3 cm x 3.7 cm mass in the right infrahilar region and volume loss. Postobstructive pneumonitis in the right lung base. Normal unenhanced pulmonary arteries. Normal aorta arch and descending thoracic aorta. There are multi-level degenerative changes of the thoracic spine. There is no demonstrated abnormality of the visualized upper abdomen. CT/Chest WITH Contrast IMPRESSION: Stable examination. Electronically Signed: Cristino Medina MD at 15:14 EDT ,
[2023-07-13 12:49] LABS: EGFR FINGERSTICK > 60.0000 mL/min (>60)
[2023-07-13] MEDS: 0.9 % NaCl (Sterile) Posiflush 10 mL IV (12:55)
== END | disposition home or self-care (01) ==
LOC: CT 11:59
PROVIDERS: Referring Provider Internal Medicine Medical Oncology; Visit Provider Internal Medicine Medical Oncology
DX: C34.31 Malignant neoplasm of lower lobe, right bronchus or lung (principal)
CPT/HCPCS: 71260; Q9967; A4216

== ENCOUNTER → 2024-01-08 | Outpatient (CLI) | payer MEDICARE, MEDICAID, SELFPAY ==
--- NOTE | 2024-01-08 12:28 | CT_ITS ---
STUDY: CT CHEST T ABDOMEN WITH CONTRAST REASON FOR EXAM: Female, 73 years old. MONITOR LUNG CA-IV ONLY. Prior radiation and chemotherapy. RADIATION DOSAGE (If Supplied By Facility): CTDIvol = ( 21.79 ) mGy, DLP = ( 1757.64 ) mGycm TECHNIQUE: Transaxial imaging was performed following intravenous administration of IV 100mL Isovue-300. Individualized dose optimization techniques were used for this CT. COMPARISON: Comparison is made with prior study dated July 13, 2023. FINDINGS: A right-sided portacatheter is seen with the tip in the superior vena cava. CHEST Moderate sized right pleural effusion with volume loss in the right hemithorax with shift from left to right. Stable post obstructive pneumonitis in the right lower lobe. There are calcifications of the coronary arteries. Normal mediastinum. Stable 3 cm x 3.7 cm mass in the right infrahilar region. Normal unenhanced pulmonary arteries. Normal aorta arch and descending thoracic aorta. There are multi-level degenerative changes of the thoracic spine. ABDOMEN 1 cm hypodensity in the peripheral inferior aspect of the right lobe of liver suggestive of a small cyst. The patient is status post cholecystectomy. Normal spleen. Normal pancreas. There is a small, circumscribed, smooth, low attenuation left adrenal mass, consistent with an adrenal adenoma. This measures 1.5 cm. Normal right adrenal gland. Right renal atrophy. Nonobstructive calculi in the upper pole cortex of the right kidney. Normal left kidney. Normal visualized stomach. Normal small intestine. There are scattered colonic diverticula consistent with diverticulosis. The appendix is visualized and appears normal. Normal abdominal aorta. Normal inferior vena cava. Normal retroperitoneum. Normal abdominal wall. There are diffuse degenerative changes of the visualized lumbar spine. CT/CT Chest AND Abd W/ Contrast IMPRESSION: Stable examination. Electronically Signed: Cristino Medina MD at 15:35 EDT ,
[2024-01-08] MEDS: 0.9% Saline Lock 10 ML Syringe IV (13:07)
[2024-01-08 13:13] LABS: CREATININE FINGERSTICK 1.1 mg/dL (0.55-1.02)
== END | disposition home or self-care (01) ==
LOC: CT 12:26
PROVIDERS: Referring Provider Internal Medicine Medical Oncology; Visit Provider Internal Medicine Medical Oncology
DX: C34.91 Malignant neoplasm of unspecified part of right bronchus or lung (principal)
CPT/HCPCS: 71260; 74160; Q9967; A4216

== ENCOUNTER → 2024-07-02 | Outpatient (CLI) | payer MEDICARE, MEDICAID, SELFPAY ==
[2024-07-02 14:00] LABS: Hematocrit 46.4 % (37-47); Hemoglobin 14.2 g/dL (12.0-15.0); Mean Corp Hgb Conc 30.6 g/dL (32-36); Mean Corpuscular Volume 98.1 fL (81-99); Mean Platelet Vol. 10.6 fl (6.2-12.0); POSITIVE COUNT YES; RBC Distribution Width SD 50.7 fl (35.1-43.9); Red Blood Count 4.73 M/mm3 (4.2-5.4)
[2024-07-02 14:13] LABS: Scan Indicated on CBC? Y/N YES- FLAGS NOTED
[2024-07-02 14:18] LABS: Platelet Count 784 K/mm3 (150-450); Vitamin B12 657 pg/mL (211-911); Vitamin D,25 Hydroxy 105.8 ng/mL
[2024-07-02 14:27] LABS: ALB/GLOB Ratio 0.8 RATIO (0.9-2.4); AST(SGOT) 19 U/L (15-37); Alanine Aminotransfer ALT/SGPT 14 U/L (13-56); Albumin, Serum 3.4 g/dL (3.2-5.0); Alkaline Phosphatase 99 U/L (45-117); Anion Gap 6 (5-15); BUN 16 mg/dL (7-18); BUN/Creat Ratio 12.9 RATIO (10-20); Chloride 105 mmol/L (98-107); Cholesterol 170 mg/dL (200); Creatinine, Serum 1.24 mg/dL (0.55-1.02); EST Glomerular Filtration Rate 45 mL/min (>60); Est Glom Filt Rate - Afr Amer 55 mL/min (>60); Globulin 4.2 g/dL (2.2-4.2); Glucose 103 mg/dL (74-106); High Density Lipoprotein 52 mg/dL; Potassium 4.4 mmol/L (3.5-5.1); Protein, Total 7.6 g/dL (6.4-8.2); Sodium Level 138 mmol/L (136-145); Triglycerides 171 mg/dL; Very Low Density Lipoprotein 34 mg/dL (5-40)
[2024-07-02 14:49] LABS: Microalbumin,Random Urine 72.5 mg/L (NO RANGE EST.)
[2024-07-02 15:47] LABS: Differential Comment SCANNED
[2024-07-03 10:30] LABS: Pathologist Review Reviewed
== END | disposition home or self-care (01) ==
LOC: VSLAB 11:57
PROVIDERS: PCP Nurse Practitioner Family; Visit Provider Nurse Practitioner Family
DX: E11.65 Type 2 diabetes mellitus with hyperglycemia (principal); E55.9 Vitamin D deficiency, unspecified
CPT/HCPCS: 36415; 80053; 80061; 82043; 82306; 82607; 84443; 85027

== ENCOUNTER 2024-08-06 07:42 | Emergency (ER) | payer MEDICARE, MEDICAID, SELFPAY ==
[2024-08-06] VITALS (21 sets, daily range): BP systolic 86–159; BP diastolic 60–120; PULSE 86–167; RESP 18–33; TEMP 36.6–37.7; O2SAT 94–100; BMI 47.8
--- NOTE | 2024-08-06 01:03 | EKG12_ITS ---
Test Reason : RYTHMN CHANGE Blood Pressure : / mmHG Vent. Rate : 090 BPM Atrial Rate : 090 BPM P-R Int : 128 ms QRS Dur : 108 ms QT Int : 344 ms P-R-T Axes : 028 023 009 degrees QTc Int : 420 ms Normal sinus rhythm Low voltage QRS Incomplete right bundle branch block Borderline ECG Confirmed by Cristian Webb ([id number]), news video editor DASHAWN DIAZ ([id number]) on 08/08/2024 10:39:35 AM Referred By: TIMO Confirmed By:Cristian Webb
--- NOTE | 2024-08-06 07:51 | ED.VIS.CHEST ---
HPI History of Present Illness Chief Complaint: Chest Other [facility] Medical History Lung cancer Dysphagia Odynophagia Diarrhea Leukopenia due to antineoplastic chemotherapy Odynophagia Chills Cough Dehydration Hypomagnesemia Wears glasses Cancer Anxiety Thyroid disease Diabetes Ambulates with cane Gout Bladder disease Easy bruising High cholesterol Back pain Migraine headache Dietary restriction Gastric reflux Former smoker CPAP (continuous positive airway pressure) dependence Shortness of breath on exertion History of pain when walking History of edema History of echocardiogram Hypertension Encounter for education Non-small cell cancer of right lung Rheumatoid arthritis Sleep apnea DJD (degenerative joint disease) Lactic acidosis Abdominal pain Cholelithiasis Fatty food intolerance Diabetes mellitus, type II Morbid obesity with BMI of 45.0-49.9, adult History of nephrolithiasis Hypertension Hyperlipidemia Home Medications ?Medication ?Instructions ?Recorded ?Last Taken ?Type pravastatin 40 mg tablet 40 mg PO QHS CHOLESTEROL #90 tabs 08/16/19 11/02/21 History dulaglutide 1.5 mg/0.5 mL 1.5 mg subcut CANO DM 04/20/21 10/31/21 History subcutaneous pen injector (Trulicity) levothyroxine 25 mcg tablet 25 mcg PO DAILY THYROID 11/03/21 11/03/21 History glucagon 1 mg/mL solution for 1 mg IM X1 PRN Hypoglycemia #0 ea 11/30/21 Unknown Rx injection (GlucaGen Diagnostic Kit) insulin lispro 100 unit/mL See Protocol subcut ACHS #0 mL 11/30/21 Unknown Rx subcutaneous pen (Humalog KwikPen (U-100) Insulin) sennosides 8.6 mg-docusate sodium 2 tab PO BID PRN PRN Constipation 11/30/21 Unknown Rx 50 mg tablet (Stool #0 tabs Softener-Stimulant Laxative) apixaban 5 mg tablet (Eliquis) 5 mg PO BID 02/08/22 Unknown History furosemide 40 mg tablet 20 mg PO DAILY 02/08/22 Unknown History metoprolol succinate 25 mg 25 mg PO DAILY 10/10/22 Unknown History tablet,extended release 24 hr albuterol sulfate 2.5 mg/3 mL 2.5 mg inhalation Q2H PRN 08/05/24 Unknown History (0.083 %) solution for nebulization allopurinol 300 mg tablet 100 mg PO QHS GOUT 08/05/24 Unknown History aspirin 81 mg tablet,delayed 81 mg PO QDAY 08/05/24 Unknown History release (Adult Aspirin Regimen) insulin glargine 100 unit/mL (3 15 unit subcut BIDAC DM 08/05/24 Unknown History mL) subcutaneous pen (Basaglar KwikPen U-100 Insulin) levofloxacin 750 mg tablet 750 mg PO QDAY 08/05/24 Unknown History linagliptin 5 mg tablet (Tradjenta) 5 mg PO QAM 08/05/24 Unknown History melatonin 3 mg tablet 3 mg PO HS 08/05/24 Unknown History pantoprazole 40 mg tablet,delayed 40 mg PO QDAY 08/05/24 Unknown History release Allergy/AdvReac Type Severity Reaction Status Date / Time Seasonal Allergies: Uncoded Allergy Other Verified 08/06/24 07:51 Family History Father Lung cancer Sister Breast cancer Mother Hypertension Other Heart disease Kidney disease Surgical History Hx of colonoscopy History of cholecystectomy H/O tubal ligation Social History adopted: No household members: none number of children: 3 current occupational status: retired Smoking Status: Former smoker Tobacco: How many years used: 2 alcohol intake: current alcohol intake frequency: 0-2 drinks per day substance use type: does not use what type of physical activity do you participate in: none additional social history: EXAM Physical Exam Const Vital Signs: 08/06/24 07:48 08/06/24 07:51 08/06/24 08:51 Temperature 99.4 F H 99.4 F H 99.4 F H Temperature Source Oral Oral Oral Pulse Rate 129 H 130 H 128 H Respiratory Rate 20 H 20 H 20 H Blood Pressure 118/65 118/65 152/66 H Blood Pressure Mean 82 82 94 Pulse Ox 95 95 95 Oxygen Delivery Method Nasal Cannula Nasal Cannula Nasal Cannula Oxygen Flow Rate (L/min) 4 4 4 08/06/24 09:00 08/06/24 09:34 08/06/24 09:34 Temperature 99.0 F 98.9 F Temperature Source Oral Oral Pulse Rate 125 H 129 H 125 H Respiratory Rate 20 H 18 20 H Blood Pressure 100/67 86/64 L 86/65 L Blood Pressure Mean 78 71 72 Pulse Ox 95 95 95 Oxygen Delivery Method Nasal Cannula Nasal Cannula Nasal Cannula Oxygen Flow Rate (L/min) 4 08/06/24 10:00 08/06/24 11:00 08/06/24 11:00 Temperature 98.9 F 98.8 F Temperature Source Oral Oral Pulse Rate 109 H 104 H 104 H Respiratory Rate 18 18 18 Blood Pressure 91/66 93/60 93/60 Blood Pressure Mean 74 71 71 Pulse Ox 99 99 97 Oxygen Delivery Method Nasal Cannula Nasal Cannula Nasal Cannula Oxygen Flow Rate (L/min) 4 4 08/06/24 12:00 08/06/24 13:00 08/06/24 13:00 Temperature 98 F 98 F Temperature Source Oral Oral Pulse Rate 102 H 102 H 101 H Respiratory Rate 18 18 18 Blood Pressure 94/63 100/69 100/69 Blood Pressure Mean 73 79 79 Pulse Ox 99 98 98 Oxygen Delivery Method Nasal Cannula Nasal Cannula Nasal Cannula Oxygen Flow Rate (L/min) 4 4 [facility] MDM MDM Narrative Medical decision making narrative: HISTORY OF PRESENT ILLNESS: 74-year-old female presents concern for right chest tube placement. Patient notes diffuse myalgias, running low-grade temperature. She thinks her chest tube is infected. No chest pain. REVIEW OF SYSTEMS: Pertinent positives: Myalgias, fever Pertinent negatives: PHYSICAL EXAM: Nursing triage notes reviewed, Vital signs reviewed Constitutional: please see mdm HENT: MMM Eyes: Pupils equal round and reactive to light, Extraocular muscles intact Neck: No stridor, no JVD, full neck ROM Lungs: Clear to auscultation, No wheezing or rales. No increased work of breathing, no conversational dyspnea, no accessory muscle use, no nasal flaring. No respiratory distress noted Heart: Regular rate and rhythm, No murmurs, No rubs and No gallops, 2+ distal pulses (radial, femoral, posterior tibial) in all extremities Abdomen: Soft, there is no tenderness, rigidity, rebound or guarding, no obvious peritoneal signs, no palpable pulsatile abdominal masses, no auscultated abdominal bruit : No CVAT Extremities: No edema Neuro: No focal neurological deficits, cranial nerves II through XII intact, 5/5 strength in all extremities. Intact sensation to light touch in all extremities, 2+ reflexes bilateral patella tendons. Normal gait. No ataxia. Skin: No rash or lesions noted MEDICAL DECISION MAKING: Chief Complaint: As per HPI External records reviewed: Reviewed prior allergies, problem list, vital signs, medications, reviewed prior oncology notes Factors affecting care: Lung cancer, status post chemotherapy, type 2 diabetes, hyperlipidemia, GRETEL, PE on Eliquis Social determinants of health: none History obtained from others: none Consults: Internal medicine (Dr. Martell) [facility] MDM Narrative: Patient was initially tachycardic with heart rate 129, tachypneic with respirate of 20 and borderline febrile with initial temperature 99.4. She was saturating at 95% on 4 L nasal cannula Given initial SIRS criteria lactate, blood cultures, urine and urine culture was obtained initially per sepsis protocol. I considered the following differential diagnosis: Pneumonia, COVID, pleural effusion, ALL IMAGES (IF OBTAINED) HAVE BEEN PERSONALLY REVIEWED AND INTERPRETED BY MYSELF. EKG with sinus tachycardia rate 131, right axis deviation, occasional PVCs, no STEMI CT of the chest shows no evidence of PE but shows concern for pleural catheter abscess, empyema CBC with signs of significant systemic inflammation with a white blood cell count of 17,000, noted worsening anemia, noted no thrombocytopenia BMP without evidence of significant electrolyte abnormalities, no anion gap, no acute kidney injury. Lactate is wnl indicating no end-organ hypoperfusion and/or hypoxia. High-sensitivity troponin is negative, no evidence of myocardial ischemia Given initial signs of sepsis with elevated heart rate, fever and source of infection patient was given broad-spectrum antibiotics (vancomycin/Zosyn). Fevers treated with Toradol and Tylenol. Given this catheter was placed at outside institution we do not have specialist to place catheters. Will screen hospital patient required transfer. Discussed with Hospitalist at [facility] Who accepted her case at approximately 1230pm. IF patient have a bed he will be appropriate for admission. Was coming hospital at 6:30 PM On reassessment patient's heart rate improved to 101. Maps remained above 65. No decrease of her pressures at this time. Patient was saturating well on her home 4 L by nasal cannula. She is awaiting transfer. Signed out to p.m. physician pending transfer and possible admission here was coming hospital if she exceeds a 6-hour protocol. The patient and/or family, caregivers express understanding. The patient and/or family, caregivers agrees with the plan. Shared decision making: I will have a discussion with the patient and or visitors regarding risk/benefits of further testing or admission. They will be made aware of of the risk/benefits inherent in this decision they will be given the opportunity to voice understanding. Total critical care time today provided was at least 35 minutes. This excludes separately billable procedures. Critical care time (if documented) is secondary to the patient having high probability of clinically significant/life threatening deterioration in the patient's condition which required my urgent intervention. Impression: 1. PleurX catheter infection 2. Empyema 3. Sepsis Dispo: Transfer This note was generated with [employer] dictation software. It may contain incorrect words, spelling, and punctuation that were not noted in review of the chart prior to signing. Lab Data Labs: Laboratory Results - last 24 hr 08/06/24 08:20 WBC 17.0 H RBC 3.35 L Hgb 9.5 L Hct 31.2 L MCV 93.1 MCH 28.4 MCHC 30.4 L RDW Std Deviation 53.7 H RDW Coeff of Mahnaz 15.6 H Plt Count 952 H* MPV 9.9 Immature Gran % (Auto) 2.000 H Neut % (Auto) 87.4 H Lymph % (Auto) 2.9 L [place] % (Auto) 7.1 Eos % (Auto) 0.1 Baso % (Auto) 0.5 Absolute Neuts (auto) 14.8 H Absolute Lymphs (auto) 0.49 L Nucleated RBC % 0 Differential Comment SCANNED Diff Path Review May foll Platelet Estimate MKD INC Sodium 136 Potassium 4.2 Chloride 102 Carbon Dioxide 29.0 Anion Gap 6 BUN 19 H Creatinine 1.19 H Estim Creat Clear Calc 57.43 Est GFR (MDRD) Af Amer 57 L Est GFR (MDRD) Non-Af 47 L BUN/Creatinine Ratio 16.0 Glucose 241 H Lactic Acid 1.3 Calcium 9.1 Troponin I High Sens 8 Radiography Diagnostic Testing: Clinical Impression(s) from Imaging Studies Chest CTA 08/06/24 08:05 IMPRESSION: Right lateral chest wall air-fluid collection around the right chest tube, concerning for pericatheter abscess. Moderate-large loculated right pleural effusion now containing air and increased in size from prior, concerning for empyema. Occlusion of the right lower lobe bronchus, likely secondary to increasing size of right perihilar and infrahilar mass. Increased post obstructive pneumonia or pneumonitis in the right lung. Mild left lower lobe atelectasis or pneumonia. No evidence of large central pulmonary embolism with limited evaluation of the more distal pulmonary artery branches due to motion artifact and suboptimal contrast bolus. Electronically Signed: Teresita Vincent MD at 10:27 EDT , Discharge Plan Triage Chief Complaint: Chest Other ED Provider: Darius Chandler Dx/Rx/DC Orders Prescriptions: No Action pravastatin 40 mg tablet 40 mg PO QHS Qty: 90 Trulicity 1.5 mg/0.5 mL pen injector 1.5 mg subcut CANO furosemide 40 mg tablet 20 mg PO DAILY Patient Comments: TAKE 1 TABLET BY MOUTH ONCE DAILY IN THE MORNING Eliquis 5 mg tablet 5 mg PO BID albuterol sulfate 2.5 mg /3 mL (0.083 %) solution for nebulization 2.5 mg inhalation Q2H PRN melatonin 3 mg tablet 3 mg PO HS aspirin [Adult Aspirin Regimen] 81 mg tablet,delayed release (DR/EC) 81 mg PO QDAY pantoprazole 40 mg tablet,delayed release (DR/EC) 40 mg PO QDAY levofloxacin 750 mg tablet 750 mg PO QDAY Rx Instructions: until 08/10/24 Tradjenta 5 mg tablet 5 mg PO QAM allopurinol 300 mg tablet 100 mg PO QHS levothyroxine 25 mcg tablet 25 mcg PO DAILY Patient Comments: TAKE 1 TABLET BY MOUTH ONCE DAILY insulin lispro [Humalog KwikPen Insulin] 100 unit/mL Insulin Pen See Protocol subcut ACHS Qty: 0 0RF Protocol: 3. Sliding Scale Insulin Med Dosing Condition: 150-189 mg/dl = 1 unit Condition: 190-229 mg/dl = 2 units Condition: 230-269 mg/dl = 3 units Condition: 270-309 mg/dl = 4 units Condition: 310-349 mg/dl = 5 units Condition: 350-399 mg/dl = 6 units Condition: 400-449 mg/dl = 7 units Condition: Greater than 449 call physician Protocol Text: - Use for Total Daily Dose of Insulin 37-55 units - Obsese, infected, or steroid patients MEDIUM DOSING ALGORITHIM sennosides-docusate sodium [Stool Softener-Stimulant Laxat] 8.6-50 mg Tablet 2 tab PO BID PRN PRN (Reason: Constipation) Qty: 0 0RF GlucaGen Diagnostic Kit 1 mg/mL Recon Soln 1 mg IM X1 PRN (Reason: Hypoglycemia) Qty: 0 0RF metoprolol succinate 25 mg Tablet Extended Release 24 Hr 25 mg PO DAILY Rx Instructions: Do NOT rake if heart rate is <70. insulin glargine [Basaglar KwikPen U-100 Insulin] 100 unit/mL (3 mL) insulin pen 15 unit subcut BIDAC Primary Care Provider: Kristy Castro Referrals: Kristy Castro, [facility] [Primary Care Provider] - Print Language: Swiss
--- NOTE | 2024-08-06 08:04 | EKG12_ITS ---
Test Reason : PAIN Blood Pressure : / mmHG Vent. Rate : 131 BPM Atrial Rate : 131 BPM P-R Int : 124 ms QRS Dur : 104 ms QT Int : 302 ms P-R-T Axes : 016 015 004 degrees QTc Int : 445 ms Sinus tachycardia with occasional Premature ventricular complexes Incomplete right bundle branch block Borderline ECG Confirmed by Cristian Webb ([id number]), editorial director DASHAWN DIAZ ([id number]) on 08/07/2024 9:23:15 AM Referred By: NILTON Confirmed By:Cristian Webb
--- NOTE | 2024-08-06 08:05 | CT_ITS ---
HISTORY: right sided pleural catheter infection. TECHNIQUE: CT angiogram of the chest was performed after the intravenous administration of 100 mL Isovue-370. Post-processing of the angiographic images was performed with multiplanar reformation and 3D reconstruction. Individualized dose optimization techniques were used for this CT. 1375 images. COMPARISON: 01/08/2024. FINDINGS: CENTRAL AIRWAYS: Motion artifact with dynamic airway narrowing. Increased narrowing and occlusion of the right lower lobe bronchus. LUNGS: Increased size of mass/masslike consolidation in the right suprahilar, perihilar, infrahilar right lung. Septal thickening and groundglass opacities with decreased volume of the right lung. Atelectasis and air trapping throughout the left lung with mild left lower lobe opacity. PLEURA: Moderate-large loculated right pleural effusion with bubbles of air in the pleural space. Right chest tube with tip in the posterior pleural space. 2.7 x 6.1 cm air-fluid collection with surrounding subcutaneous edema along the path of the right pleural catheter. HEART/PERICARDIUM: Heart within normal limits in size with coronary artery disease. No pericardial effusion. PULMONARY ARTERIES: No large central filling defect. Suboptimal contrast bolus and motion artifact. AORTA/VESSELS: No thoracic aortic aneurysm or dissection flap. Mild atherosclerosis. Right chest wall port with catheter tip in right atrium. MEDIASTINUM/YUNIOR: Scattered small mediastinal lymph nodes. OSSEOUS STRUCTURES: Degenerative change. Small bone islands or osteoblastic lesions in the T2 and T12 vertebral bodies. UPPER ABDOMEN: Nonobstructing right renal calcifications. CT/CTA Chest W/WO Contrast IMPRESSION: Right lateral chest wall air-fluid collection around the right chest tube, concerning for pericatheter abscess. Moderate-large loculated right pleural effusion now containing air and increased in size from prior, concerning for empyema. Occlusion of the right lower lobe bronchus, likely secondary to increasing size of right perihilar and infrahilar mass. Increased post obstructive pneumonia or pneumonitis in the right lung. Mild left lower lobe atelectasis or pneumonia. No evidence of large central pulmonary embolism with limited evaluation of the more distal pulmonary artery branches due to motion artifact and suboptimal contrast bolus. Electronically Signed: Teresita Vincent MD at 10:27 EDT ,
[2024-08-06] MEDS: Acetaminophen 325 MG Tablet 650 MG PO (08:30)
[2024-08-06] MEDS: Ketorolac 15 MG/ML Vial IV (08:31)
[2024-08-06] MEDS: NORMAL SALINE IV (08:33)
[2024-08-06] MEDS: VIAFLEX IV (08:33)
[2024-08-06] MEDS: Piperacil/Tazobactam 3.375 GM in 0.9% Normal Saline (50mL MB+) 50 ML IV (08:34)
[2024-08-06 08:37] LABS: Absolute Lymphocyte Count 0.49 X10^3/uL (0.83-4.51); Absolute Neutrophil Count 14.8 X10^3/uL (2.0-7.7); Basophil# 0.09 X10^3/uL; Basophil% 0.5 % (0-1); Eosinophil# 0.02 X10^3/uL; Eosinophils% 0.1 % (0-5); Hematocrit 31.2 % (37-47); Hemoglobin 9.5 g/dL (12.0-15.0); Lymphocyte # 0.49 X10^3/ul (0.83-4.51); Lymphocyte % 2.9 % (19-41); Mean Corp Hgb Conc 30.4 g/dL (32-36); Mean Corpuscular Hgb 28.4 pg (27.0-32.0); Mean Corpuscular Volume 93.1 fL (81-99); Mean Platelet Vol. 9.9 fl (6.2-12.0); Monocyte# 1.21 X10^3/uL; Monocyte% 7.1 % (0-10); NRBC Flagged by Analyzer 0 % (0-5); Neutrophil # 14.84 X10^3/uL (2.7-7.7); Neutrophil % 87.4 % (47-70); POSITIVE COUNT YES; POSITIVE DIFFERENTIAL YES; RBC Distribution Width CV 15.6 % (11.6-14.6); RBC Distribution Width SD 53.7 fl (35.1-43.9); Red Blood Count 3.35 M/mm3 (4.2-5.4)
[2024-08-06 09:02] LABS: Differential Indicated SCAN CRITERIA MET; Platelet Count 952 K/mm3 (150-450)
[2024-08-06 09:18] LABS: Lactic Acid 1.3 mmol/L (0.4-1.9)
[2024-08-06 09:19] LABS: Anion Gap 6 (5-15); BUN 19 mg/dL (7-18); Calcium,Total 9.1 mg/dL (8.5-10.1); Chloride 102 mmol/L (98-107); Creatinine, Serum 1.19 mg/dL (0.55-1.02); EST Glomerular Filtration Rate 47 mL/min (>60); Est Glom Filt Rate - Afr Amer 57 mL/min (>60); Estimated Creatinine Clearance 57.43 ml/min; Glucose 241 mg/dL (74-106); Potassium 4.2 mmol/L (3.5-5.1); Sodium Level 136 mmol/L (136-145); Troponin-I HS 8 pg/mL (3.0-54.0)
[2024-08-06] MEDS: Vancomycin HCl 2,000 MG in 0.9% Normal Saline (500mL Bag) 500 ML 250 MG IV (09:26)
[2024-08-06 09:27] LABS: Differential Comment SCANNED; Platelet Estimate MKD INC (ADEQ)
[2024-08-06] MEDS: Morphine 4 MG/ML Syringe IV ×3 (09:29→18:01)
--- NOTE | 2024-08-06 10:42 | ED.RN ---
CALLED [facility]EN
--- NOTE | 2024-08-06 10:47 | ED.RN ---
DR DALAL OF PT BLOOD PRESSURE DROPPING. TIMEING OF DROP CORRELATES WITH ADMINISTRATION OF PAIN MEDICATION. DR DALAL. PT HAS ALMOST COMPLETED 1500 FLUIDS BY USING NORMAL SALINE AND VANCOMYCIN AND ZOSYN
--- NOTE | 2024-08-06 12:13 | ED.RN ---
CALLED [facility].
[2024-08-06] MEDS: LORazepam 2 MG/ML Syringe 0.5 MG IV (21:11)
--- NOTE | 2024-08-06 21:46 | EKG12_ITS ---
Test Reason : RYTHMN CHANGE Blood Pressure : / mmHG Vent. Rate : 161 BPM Atrial Rate : 300 BPM P-R Int : 000 ms QRS Dur : 092 ms QT Int : 322 ms P-R-T Axes : 000 057 013 degrees QTc Int : 527 ms Critical Test Result: High HR Atrial fibrillation with rapid ventricular response Low voltage QRS Incomplete right bundle branch block Nonspecific ST abnormality Abnormal ECG Baseline artifact Confirmed by Cristian Webb ([id number]), slot editor DASHAWN DIAZ ([id number]) on 08/08/2024 10:39:24 AM Referred By: ANNITA Confirmed By:Cristian Webb
[2024-08-06] MEDS: dilTIAZem 25 MG/5 ML Vial 10 MG IV BOLUS (21:55)
[2024-08-06] MEDS: Adenosine 6 MG/2 ML Syringe IV (22:15)
[2024-08-06] MEDS: Diltiazem 125 MG in Dextrose 5%-Water (100mL Bag) 100 ML IV (22:36)
--- NOTE | 2024-08-06 22:42 | ED.RN ---
Per MD order, the diltiazem will be increased within 5 minutes of hanging the medication by 5mg. Medication will be titrated every 5 minutes until a target HR is reached of 150.
[2024-08-06] MEDS: Metoprolol Tartrate 5 MG/5 ML Vial IV (23:54)
[2024-08-07] MEDS: DiphenhydrAMINE 25 MG Capsule PO (00:26)
[2024-08-07] MEDS: Metoprolol Tartrate 25 MG Tablet PO (00:26)
[2024-08-07 01:00] VITALS: BP 104/57; PULSE 88; RESP 30; O2SAT 99
[2024-08-07 01:18] VITALS: BP 104/62; PULSE 87; RESP 30; TEMP 37.7; O2SAT 99
[2024-08-07] MEDS: Piperacil/Tazobactam 3.375 GM in 0.9% Normal Saline (50mL MB+) 50 ML IV (02:07)
[2024-08-07 03:00] VITALS: BP 104/71; PULSE 89; RESP 22; O2SAT 100
[2024-08-07] MEDS: Haloperidol Lactate 5 MG/ML Vial IV (04:10)
[2024-08-07 05:00] VITALS: BP 122/71; PULSE 98; RESP 25; O2SAT 96
[2024-08-07] MEDS: fentaNYL 100 MCG/2 ML Ampul 50 MCG IV ×2 (05:01→09:41)
[2024-08-07 07:00] VITALS: BP 146/85; PULSE 104; RESP 34; O2SAT 95
--- NOTE | 2024-08-07 07:28 | ED.RN ---
Patient's gown changed per patient request due to being damp. New gown placed. Patient provided a warm blanket and blankets repositioned.
--- NOTE | 2024-08-07 08:12 | ED.RN ---
Patient hit call light. Gilda GOULD bedside. Patient was emotional stating shes been here since yesterday and she needs music or something to listen to. Patient states her phone does not play music and was attempted to be redirected. Patient states she needs to get out of here now. Patient informed there is pain and nausea medication ordered to be given prior to transfer.
--- NOTE | 2024-08-07 08:39 | ED.RN ---
Patient repositioned in bed per patient request.
[2024-08-07 09:00] VITALS: BP 132/69; PULSE 93; RESP 23; O2SAT 96
--- NOTE | 2024-08-07 09:06 | NURSING ---
15-20 MINUTES ADDITIONAL ETA, ETA WAS ALREADY PUSHED FROM 8 TO 9 AM
[2024-08-07] MEDS: Ondansetron 4 MG/2 ML Vial IV (09:42)
[2024-08-07 15:00] LABS: Pathologist Review Reviewed
== END 2024-08-07 10:09 | disposition short-term general hospital (02) ==
PROVIDERS: Emergency Provider Emergency Medicine; PCP Nurse Practitioner Family; Visit Provider Emergency Medicine
DX: T80.212A Local infection due to central venous catheter, initial encounter (principal); C34.90 Malignant neoplasm of unspecified part of unspecified bronchus or lung; A41.9 Sepsis, unspecified organism; J86.9 Pyothorax without fistula; E11.9 Type 2 diabetes mellitus without complications; Z79.4 Long term (current) use of insulin; G47.33 Obstructive sleep apnea (adult) (pediatric); E78.00 Pure hypercholesterolemia, unspecified; I10 Essential (primary) hypertension; Z79.51 Long term (current) use of inhaled steroids; Z79.899 Other long term (current) drug therapy; Z79.82 Long term (current) use of aspirin; Z79.01 Long term (current) use of anticoagulants; Z87.891 Personal history of nicotine dependence; X58.XXXA Exposure to other specified factors, initial encounter
CPT/HCPCS: 71275; 80048; 83605; 84484; 85025; 87040; 87631; 93005; 96365; 96366; 96367; 96375; 96376; 99285; J7030; J7040; Q9967; A4216; J0153; J2405